=== PATIENT | male | born 2000 | race Caucasian/White ===

== ENCOUNTER 2019-02-03 13:12 | Emergency (ER) | payer BC ==
[2019-02-03 14:01] VITALS: BP 135/88; PULSE 69; RESP 18; TEMP 98
[2019-02-03] MEDS ORDERED: SODIUM CHLORIDE 0.9% 1,000 ML IV ONE (14:03)
--- NOTE | 2019-02-03 14:04 | ED ---
Nausea/Vomiting/Diarrhea HPI - General Chief complaint: Nausea/Vomiting/Diarrhea Stated complaint: vomiting Time Seen by Provider: 02/03/19 14:02 Source: patient, RN notes reviewed Mode of arrival: ambulatory Limitations: no limitations - History of Present Illness Initial comments: 18-year-old male with past medical history of recently diagnosed with less presented for chief complaint of vomiting and diarrhea. Patient states since Thursday he has had watery diarrhea and vomiting. He states it occurs randomly does not noticed a specific pattern. Patient was prescribed doxycycline 2 weeks ago. 100 mg twice daily. He states this was prescribed that she may have syphilis. Patient states this was an incidental finding on laboratories testing he denies any penile lesion, patient denies any headache neck stiffness hearing loss sensation deficits asymmetry of the facial expressions, visual changes. Patient states he does have a seizure disorder and is compliant with this medication he hasn't had a seizure in over one year. Patient denies any recent travel he denies HIV, blood in stools, blood in vomit, fever. Patient states he does have some occasional abdominal cramping. Patient mother was concerned for c. difficile and that is why he presented to the ER. Pt states he has been able to tolerate PO intake but very decreased from usual. Remaining ROS (-). - Related Data Home Medications Medication Instructions Recorded Confirmed OXcarbazepine [Oxtellar Xr] 1,200 mg PO DAILY 09/06/14 02/03/19 Doxycycline Hyclate [Vibramycin] 100 mg PO BID 02/03/19 02/03/19 Sertraline [Zoloft] 50 mg PO DAILY 02/03/19 02/03/19 Allergies Allergy/AdvReac Type Severity Reaction Status Date / Time diphenhydramine HCl Allergy Unknown Verified 02/03/19 14:37 [From Benadryl] sumatriptan [From Imitrex] AdvReac seizure Verified 02/03/19 14:37 sumatriptan succinate AdvReac seizure Verified 02/03/19 14:37 [From Imitrex] Review of Systems ROS Statement: Those systems with pertinent positive or pertinent negative responses have been documented in the HPI. ROS Other: All systems not noted in ROS Statement are negative. Past Medical History Past Medical History: Seizure Disorder History of Any Multi-Drug Resistant Organisms: None Reported Past Surgical History: Adenoidectomy, Tonsillectomy Additional Past Surgical History / Comment(s): undecended testicle Past Psychological History: No Psychological Hx Reported Smoking Status: Never smoker Past Alcohol Use History: None Reported Past Drug Use History: None Reported General Exam - General Exam Comments Initial Comments: General: The patient is awake and alert, in no distress, and does not appear acutely ill. Eye: Pupils are equal, round and reactive to light, extra-ocular movements are intact. No nystagmus. There is normal conjunctiva bilaterally. No signs of icterus. Ears, nose, mouth and throat: There are moist mucous membranes and no oral lesions. Neck: The neck is supple, there is no tenderness or JVD. Cardiovascular: There is a regular rate and rhythm. No murmur, rub or gallop is appreciated. Respiratory: Lungs are clear to auscultation, respirations are non-labored, breath sounds are equal. No wheezes, stridor, rales, or rhonchi. Gastrointestinal: Soft, non-distended, non-tender abdomen without masses or organomegaly noted. There is no rebound or guarding present. No CVA tenderness. Bowel sounds are unremarkable. Musculoskeletal: Normal ROM, no tenderness. Strength 5/5. Sensation intact. Pulses equal bilaterally 2+. Neurological: A&O x 3. CN II-XII intact, There are no obvious motor or sensory deficits. Coordination appears grossly intact. Speech is normal. Skin: Skin is warm and dry and no rashes or lesions are noted. Psychiatric: Cooperative, appropriate mood & affect, normal judgment. Limitations: no limitations Course Vital Signs 02/03/19 13:59 Temperature 98 F Pulse Rate 69 Respiratory 18 Rate Blood Pressure 135/88 O2 Sat by Pulse 98 Oximetry Medical Decision Making - Medical Decision Making 18-year-old male presenting today for chief complaint abdominal cramping vomiting diarrhea. Recently started doxycycline unsure if this is connected. Patient has benign abdominal exam no pain to palpation. Acute abdominal series reveals no acute abnormalities no pneumoperitoneum, or obstruction. No significant stool noted. She unable to give stool sample to check for C. difficile, recent antibiotic regimen, patient is provided tools to collect a stool sample outpatient. There is no significant leukocytosis pt is afebrile, I have low suspicion of C. difficile however still on ddx. Patient is to get the prescription for C. difficile and stool cultures from primary care provider. I recommend follow-up with the next 24 hours to obtain this prescription and provide the sample. Urinalysis does not reveal ketones. No snuff get laboratory states that her indicative of dehydration. Patient appears well capillary refill brisk. Patient has no signs of meningeal irritation denies headache. No complicating process evident on examination her history taken of the recent diagnosis of syphilis. I did provide patient information packet onset plus which includes complicated processes. At this time after discussing results with patient and feel patient is stable for discharge he states he feels better after fluids. No vomiting or diarrhea in the emergency department. I discussed the case including patient's recent diagnosis and my attending provider who is agreeable with outpatient follow-up and stool sample and discharged from the emergency department today. Patient was discharged. Well pleased with plan. - Lab Data Result diagrams: 02/03/19 14:26 02/03/19 14:26 Lab Results 02/03/19 02/03/19 02/03/19 Range/Units 14:26 14:26 16:00 WBC 6.8 (4.0-11.0) k/uL RBC 5.74 (4.30-5.90) m/uL Hgb 15.2 (13.0-17.5) gm/dL Hct 47.1 (39.0-53.0) % MCV 82.1 (80.0-100.0) fL MCH 26.6 (25.0-35.0) pg MCHC 32.4 (31.0-37.0) g/dL RDW 14.5 (11.5-15.5) % Plt Count 203 (150-450) k/uL Neutrophils % 69 % Lymphocytes % 20 % Monocytes % 7 % Eosinophils % 2 % Basophils % 0 % Neutrophils # 4.7 (1.3-7.7) k/uL Lymphocytes # 1.4 (1.0-4.8) k/uL Monocytes # 0.5 (0-1.0) k/uL Eosinophils # 0.1 (0-0.7) k/uL Basophils # 0.0 (0-0.2) k/uL Sodium 140 (137-145) mmol/L Potassium 4.4 (3.5-5.1) mmol/L Chloride 103 (98-107) mmol/L Carbon Dioxide 29 (22-30) mmol/L Anion Gap 8 mmol/L BUN 16 (9-20) mg/dL Creatinine 0.66 (0.66-1.25) mg/dL Est GFR (CKD-EPI)AfAm >90 (>60 ml/min/1.73 sqM) Est GFR (CKD-EPI)NonAf >90 (>60 ml/min/1.73 sqM) Glucose 86 (74-99) mg/dL Calcium 9.9 (8.4-10.2) mg/dL Total Bilirubin 0.7 (0.2-1.3) mg/dL AST 28 (17-59) U/L ALT 23 (21-72) U/L Alkaline Phosphatase 33 L (38-126) U/L Total Protein 7.2 (6.3-8.2) g/dL Albumin 4.7 (3.5-5.0) g/dL Lipase 192 (23-300) U/L Urine Color Yellow Urine Appearance Clear (Clear) Urine pH 6.5 (5.0-8.0) Ur Specific [place] 1.033 (1.001-1.035) Urine Protein Trace H (Negative) Urine Glucose (UA) Negative (Negative) Urine Ketones Negative (Negative) Urine Blood Negative (Negative) Urine Nitrite Negative (Negative) Urine Bilirubin Negative (Negative) Urine Urobilinogen <2.0 (<2.0) mg/dL Ur Leukocyte Esterase Negative (Negative) Disposition Clinical Impression: Diarrhea, Vomiting, Abdominal cramping Disposition: HOME SELF-CARE Condition: Good Instructions (If sedation given, give patient instructions): Syphilis (ED), Acute Nausea and Vomiting (ED), Acute Diarrhea (ED) Additional Instructions: Please use medication as discussed. Please follow-up with family doctor in the next 24 hours, please get a prescription for c.difficle/stool testing and provide stool sample to your primary care for testing. Please return to emergency room if the symptoms increase or worsen or for any other concerns, including blood in stools, fever, increasing/consistent abdominal pain. Is patient prescribed a controlled substance at d/c from ED?: No Referrals: Davian Nam MD [Primary Care Provider] - 1-2 days Time of Disposition: 16:16
[2019-02-03] MEDS ORDERED: SODIUM CHLORIDE 0.9% 500 ML 500 ML IV ONE (14:20)
--- NOTE | 2019-02-03 15:09 | XR ---
EXAMINATION TYPE: XR abdomen acute w cxr DATE OF EXAM: 02/03/2019 COMPARISON: Prior chest x-ray 11/03/2012 HISTORY: Vomiting, diarrhea, abdominal pain TECHNIQUE: Supine, upright, and frontal chest views of the abdomen and chest are obtained on 4 image s. FINDINGS: There are metallic posts over the lower chest, correlate. Underlying pectus deformity is n oted. Chest x-ray shows no acute abnormality. There is no evidence for pneumoperitoneum. The bowel gas pattern is unremarkable as there is air throughout nondilated small and large bowel. No sizeable air fluid levels. No mass effects are seen. No unusual calcifications. Spina bifida occulta noted at S1. IMPRESSION: Findings over the chest is described.
[2019-02-03 15:13] LABS: Basophils % (A) 0 %; Eosinophils # (A) 0.1 k/uL (0-0.7); Eosinophils % (A) 2 %; HCT 47.1 % (39.0-53.0); HGB 15.2 gm/dL (13.0-17.5); Lymphocytes # (A) 1.4 k/uL (1.0-4.8); Lymphocytes % (A) 20 %; MCH 26.6 pg (25.0-35.0); MCHC 32.4 g/dL (31.0-37.0); MCV 82.1 fL (80.0-100.0); Mean Platelet Volume 9.3; Monocytes # (A) 0.5 k/uL (0-1.0); Monocytes % (A) 7 %; Neutrophils # (A) 4.7 k/uL (1.3-7.7); Neutrophils % (A) 69 %; Platelet Count 203 k/uL (150-450); RBC 5.74 m/uL (4.30-5.90); RDW 14.5 % (11.5-15.5); WBC 6.8 k/uL (4.0-11.0)
[2019-02-03 15:22] LABS: ALT 23 U/L (21-72); AST 28 U/L (17-59); Albumin 4.7 g/dL (3.5-5.0); Alkaline Phosphatase 33 U/L (38-126); Anion Gap 8 mmol/L; Blood Urea Nitrogen 16 mg/dL (9-20); Calcium 9.9 mg/dL (8.4-10.2); Carbon Dioxide 29 mmol/L (22-30); Chloride 103 mmol/L (98-107); Glucose 86 mg/dL (74-99); Lipase 192 U/L (23-300); Potassium 4.4 mmol/L (3.5-5.1); Sodium 140 mmol/L (137-145); Total Bilirubin 0.7 mg/dL (0.2-1.3); Total Protein 7.2 g/dL (6.3-8.2)
[2019-02-03 16:17] LABS: Appearance,Urine Clear (Clear); Bilirubin,Urine Negative (Negative); Blood,Urine Negative (Negative); Color,Urine Yellow; Glucose,Urine (UA) Negative (Negative); Ketones,Urine Negative (Negative); Leukocyte Esterase,Urine Negative (Negative); Nitrite,Urine Negative (Negative); PH, Urine 6.5 (5.0-8.0); Protein,Urine Trace (Negative); Specific Gravity,Urine 1.033 (1.001-1.035); Urobilinogen,Urine <2.0 mg/dL (<2.0)
== END 2019-02-03 16:38 | disposition home or self-care (01) ==
LOC: EC 13:12
DX: R11.10 Vomiting, unspecified (principal); R19.7 Diarrhea, unspecified; R10.9 Unspecified abdominal pain; G40.909 Epilepsy, unspecified, not intractable, without status epilepticus; Z79.899 Other long term (current) drug therapy; Z88.8 Allergy status to other drugs, medicaments and biological substances
CPT/HCPCS: 36415; 74022; 80053; 81003; 83690; 85025; 96360; 99284

== ENCOUNTER 2019-02-14 18:04 | Emergency (ER) | payer BC ==
[2019-02-14 18:25] VITALS: RESP 18
[2019-02-14 19:31] LABS: Basophils % (A) 0 %; Eosinophils # (A) 0.1 k/uL (0-0.7); Eosinophils % (A) 1 %; HCT 50.6 % (39.0-53.0); HGB 16.5 gm/dL (13.0-17.5); Lymphocytes # (A) 1.4 k/uL (1.0-4.8); Lymphocytes % (A) 14 %; MCH 27.6 pg (25.0-35.0); MCHC 32.6 g/dL (31.0-37.0); MCV 84.7 fL (80.0-100.0); Mean Platelet Volume 9.3; Monocytes # (A) 0.3 k/uL (0-1.0); Monocytes % (A) 3 %; Neutrophils % (A) 80 %; Platelet Count 239 k/uL (150-450); RBC 5.97 m/uL (4.30-5.90); RDW 13.2 % (11.5-15.5); WBC 9.9 k/uL (4.0-11.0)
[2019-02-14 19:37] LABS: Appearance,Urine Cloudy (Clear); Bilirubin,Urine Negative (Negative); Blood,Urine Negative (Negative); Color,Urine Yellow; Glucose,Urine (UA) Negative (Negative); Ketones,Urine Negative (Negative); Leukocyte Esterase,Urine Negative (Negative); Mucus,Urine Many /hpf; Nitrite,Urine Negative (Negative); PH, Urine 5.5 (5.0-8.0); Protein,Urine 1+ (Negative); Urobilinogen,Urine <2.0 mg/dL (<2.0); WBC,Urine 2 /hpf (0-5)
[2019-02-14 19:40] LABS: ALT 19 U/L (21-72); AST 24 U/L (17-59); African American GFR (CKD) >90 (>60 ml/min/1.73 sqM); Albumin 5.3 g/dL (3.5-5.0); Alkaline Phosphatase 39 U/L (38-126); Amylase 66 U/L (30-110); Anion Gap 11 mmol/L; Blood Urea Nitrogen 12 mg/dL (9-20); Calcium 10.4 mg/dL (8.4-10.2); Carbon Dioxide 26 mmol/L (22-30); Chloride 105 mmol/L (98-107); Glucose 91 mg/dL (74-99); Lipase 152 U/L (23-300); Potassium 4.3 mmol/L (3.5-5.1); Sodium 142 mmol/L (137-145); Total Bilirubin 0.7 mg/dL (0.2-1.3); Total Protein 8.3 g/dL (6.3-8.2)
[2019-02-14] MEDS ORDERED: ONDANSETRON 4 MG/2 ML VIAL IVP STA (20:05)
[2019-02-14] MEDS ORDERED: SODIUM CHLORIDE 0.9% 1,000 ML IV ONE (20:05)
--- NOTE | 2019-02-14 20:11 | ED ---
Abdominal Pain HPI - General Source: patient Mode of arrival: ambulatory Limitations: no limitations <Michelle Gonzalez - Last Filed: 02/15/19 03:44> <Siena Covarrubias - Last Filed: 02/15/19 06:23> - General Chief Complaint: Abdominal Pain Stated Complaint: vomiting Time Seen by Provider: 02/14/19 19:50 - History of Present Illness Initial Comments: 18-year-old male patient presents to the emergency department today for evaluation of vomiting and midepigastric abdominal pain. Patient started with symptoms this morning abdomen worsening throat the day. He did develop diarrhea this evening. Denies any hematochezia, melena, hematemesis. Denies any fever or chills. Patient did have a similar episode of this 2 weeks ago that started in resolved quickly. Patient and family are concerned his gallbladder may be dysfunctional. He denies any radiation of the pain through to his back or to his shoulder. He denies any history of abdominal surgery. Patient denies any recent rash, shortness breath, chest pain, back pain, numbness, tingling, dizziness, weakness, hematuria, dysuria, urinary urgency, urinary frequency, headache, visual changes, or any other complaints. (Michelle Gonzalez) - Related Data Home Medications Medication Instructions Recorded Confirmed OXcarbazepine [Oxtellar Xr] 1,200 mg PO DAILY 09/06/14 02/14/19 Sertraline [Zoloft] 50 mg PO DAILY 02/03/19 02/14/19 Omeprazole [PriLOSEC] 20 mg PO DAILY 02/14/19 02/14/19 Previous Rx's Medication Instructions Recorded Ondansetron [Zofran ODT] 4 mg PO Q8HR PRN #10 tab 02/14/19 Ranitidine HCl [Zantac] 150 mg PO HS #30 tab 02/14/19 Allergies Allergy/AdvReac Type Severity Reaction Status Date / Time diphenhydramine HCl Allergy Unknown Verified 02/14/19 20:08 [From Benadryl] sumatriptan [From Imitrex] AdvReac seizure Verified 02/14/19 20:08 sumatriptan succinate AdvReac seizure Verified 02/14/19 20:08 [From Imitrex] Review of Systems ROS Other: All systems not noted in ROS Statement are negative. <Michelle Gonzalez M - Last Filed: 02/15/19 03:44> ROS Other: All systems not noted in ROS Statement are negative. <Nancy Covarrubiastemitope Olivarez - Last Filed: 02/15/19 06:23> ROS Statement: Those systems with pertinent positive or pertinent negative responses have been documented in the HPI. Past Medical History Past Medical History: Seizure Disorder History of Any Multi-Drug Resistant Organisms: None Reported Past Surgical History: Adenoidectomy, Tonsillectomy Additional Past Surgical History / Comment(s): undecended testicle Past Psychological History: No Psychological Hx Reported Smoking Status: Current every day smoker Past Alcohol Use History: None Reported Past Drug Use History: None Reported <Michelle Gonzalez Cristofer - Last Filed: 02/15/19 03:44> General Exam Limitations: no limitations General appearance: alert, in no apparent distress, other (This is well- developed, well-nourished adult male patient in no acute distress. Vital signs upon presentation are temperature 98.8F, pulse 78, respirations 18, blood pressure 130/81, pulse ox 96% on room air.) Eye exam: Present: normal appearance, PERRL, EOMI. Absent: scleral icterus, conjunctival injection, periorbital swelling ENT exam: Present: normal exam, normal oropharynx, mucous membranes moist Respiratory exam: Present: normal lung sounds bilaterally. Absent: respiratory distress, wheezes, rales, rhonchi, stridor Cardiovascular Exam: Present: regular rate, normal rhythm, normal heart sounds. Absent: systolic murmur, diastolic murmur, rubs, gallop, clicks GI/Abdominal exam: Present: soft, tenderness (Right upper quadrant tenderness, midepigastric tenderness), normal bowel sounds. Absent: distended, guarding, rebound, rigid Neurological exam: Present: alert, oriented X3, CN II-XII intact Psychiatric exam: Present: normal affect, normal mood Skin exam: Present: warm, dry, intact, normal color. Absent: rash <Michelle Gonzalez M - Last Filed: 02/15/19 03:44> Course Vital Signs 02/14/19 02/14/19 18:23 22:34 Temperature 98.8 F 98.7 F Pulse Rate 78 77 Respiratory 18 18 Rate Blood Pressure 130/81 121/59 O2 Sat by Pulse 96 99 Oximetry Medical Decision Making - Lab Data Result diagrams: 02/14/19 19:15 02/14/19 19:15 - Radiology Data Radiology results: report reviewed, image reviewed <Michelle Gonzalez - Last Filed: 02/15/19 03:44> - Lab Data Result diagrams: 02/14/19 19:15 02/14/19 19:15 <Siena Covarrubias - Last Filed: 02/15/19 06:23> - Medical Decision Making 18-year-old male patient presents to the emergency department today for eval uation of upper abdominal pain, vomiting, diarrhea. Physical examination did reveal midepigastric and right upper quadrant tenderness. Labs reviewed and were unremarkable. Ultrasound of the right upper quadrant abdomen was obtained and was negative for any abnormality is. Upon reevaluation patient is feeling better. He is eating chips and drinking soda. He'll be discharged home at this time to follow-up with his primary care physician for recheck in 1-2 days. He will be given a prescription for Zofran for any return of symptoms. Return parameters were discussed in detail. He verbalizes understanding and agrees with this plan (Michelle Gonzalez) I was available for consultation in the emergency department. The history and physical exam were done by the Midlevel Provider. Medical decision making was done by the Midlevel Provider. I have reviewed the chart, however was not consulted specifically or made aware of this patient by the above midlevel provider and did not personally evaluate, interact with, or disposition this patient on the day of their visit Chart was dictated using [employer] dictation software. Attempts were made to correct any dictation errors however some typographical errors may persist. (Siena Covarrubias) - Lab Data Lab Results 02/14/19 02/14/19 02/14/19 Range/Units 19:15 19:15 19:15 WBC 9.9 (4.0-11.0) k/uL RBC 5.97 H (4.30-5.90) m/uL Hgb 16.5 (13.0-17.5) gm/dL Hct 50.6 (39.0-53.0) % MCV 84.7 (80.0-100.0) fL MCH 27.6 (25.0-35.0) pg MCHC 32.6 (31.0-37.0) g/dL RDW 13.2 (11.5-15.5) % Plt Count 239 (150-450) k/uL Neutrophils % 80 % Lymphocytes % 14 % Monocytes % 3 % Eosinophils % 1 % Basophils % 0 % Neutrophils # 8.0 H (1.3-7.7) k/uL Lymphocytes # 1.4 (1.0-4.8) k/uL Monocytes # 0.3 (0-1.0) k/uL Eosinophils # 0.1 (0-0.7) k/uL Basophils # 0.0 (0-0.2) k/uL Sodium 142 (137-145) mmol/L Potassium 4.3 (3.5-5.1) mmol/L Chloride 105 (98-107) mmol/L Carbon Dioxide 26 (22-30) mmol/L Anion Gap 11 mmol/L BUN 12 (9-20) mg/dL Creatinine 0.79 (0.66-1.25) mg/dL Est GFR (CKD-EPI)AfAm >90 (>60 ml/min/1.73 sqM) Est GFR (CKD-EPI)NonAf >90 (>60 ml/min/1.73 sqM) Glucose 91 (74-99) mg/dL Calcium 10.4 H (8.4-10.2) mg/dL Total Bilirubin 0.7 (0.2-1.3) mg/dL AST 24 (17-59) U/L ALT 19 L (21-72) U/L Alkaline Phosphatase 39 (38-126) U/L Total Protein 8.3 H (6.3-8.2) g/dL Albumin 5.3 H (3.5-5.0) g/dL Amylase 66 (30-110) U/L Lipase 152 (23-300) U/L Urine Color Yellow Urine Appearance Cloudy (Clear) Urine pH 5.5 (5.0-8.0) Ur Specific [place] 1.030 (1.001-1.035) Urine Protein 1+ H (Negative) Urine Glucose (UA) Negative (Negative) Urine Ketones Negative (Negative) Urine Blood Negative (Negative) Urine Nitrite Negative (Negative) Urine Bilirubin Negative (Negative) Urine Urobilinogen <2.0 (<2.0) mg/dL Ur Leukocyte Esterase Negative (Negative) Urine WBC 2 (0-5) /hpf Urine Mucus Many H (None) /hpf - Radiology Data Limited ultrasound of the right upper quadrant abdomen was obtained. Report was reviewed in its entirety. Impression by Dr. Hong Munoz shows no acute process. (Michelle Gonzalez) Disposition Is patient prescribed a controlled substance at d/c from ED?: No Time of Disposition: 22:17 <Michelle Gonzalez - Last Filed: 02/15/19 03:44> <Siena Covarrubias - Last Filed: 02/15/19 06:23> Clinical Impression: Abdominal pain Disposition: HOME SELF-CARE Condition: Good Instructions (If sedation given, give patient instructions): Acute Nausea and Vomiting (ED), Abdominal Pain (ED) Additional Instructions: Follow-up with your primary care physician for recheck in 1-2 days. Return to the emergency department immediately for any new, worsening, or concerning symptoms. Prescriptions: Ranitidine HCl [Zantac] 150 mg PO HS #30 tab Ondansetron [Zofran ODT] 4 mg PO Q8HR PRN #10 tab PRN Reason: Nausea Referrals: Davian Nam MD [Primary Care Provider] - 1-2 days
--- NOTE | 2019-02-14 22:02 | US ---
EXAMINATION TYPE: US abdomen limited DATE OF EXAM: 02/14/2019 COMPARISON: NONE CLINICAL HISTORY: Mid epigastric pain/vomiting. EXAM MEASUREMENTS: Liver Length: 16.0 cm Gallbladder Wall: 0.2 cm CBD: 0.3 cm Right Kidney: 12.2 x 5.0 x 5.0 cm Pancreas: wnl Liver: wnl Gallbladder: wnl Evidence for sonographic Sweeney's sign: No CBD: wnl Right Kidney: wnl IMPRESSION: No acute process.
[2019-02-14 22:36] VITALS: BP 121/59; PULSE 77; TEMP 98.7
== END 2019-02-14 22:36 | disposition home or self-care (01) ==
LOC: EC 18:04
DX: R10.13 Epigastric pain (principal); R11.10 Vomiting, unspecified; R10.11 Right upper quadrant pain; R19.7 Diarrhea, unspecified; G40.909 Epilepsy, unspecified, not intractable, without status epilepticus; F17.200 Nicotine dependence, unspecified, uncomplicated; Z79.899 Other long term (current) drug therapy; Z88.8 Allergy status to other drugs, medicaments and biological substances
CPT/HCPCS: 36415; 80053; 82150; 83690; 85025; 81001; 76705; 99284; 96374; 96361 ×2; J2405

== ENCOUNTER 2019-04-19 12:52 | Observation (INO) | payer BC ==
[2019-04-19] MEDS ORDERED: SODIUM CHLORIDE 0.9% 1,000 ML IV STA (13:25)
[2019-04-19 13:41] LABS: Basophils % (A) 0 %; Eosinophils # (A) 0.1 k/uL (0-0.7); Eosinophils % (A) 2 %; HCT 45.1 % (39.0-53.0); HGB 14.7 gm/dL (13.0-17.5); Lymphocytes # (A) 1.3 k/uL (1.0-4.8); Lymphocytes % (A) 21 %; MCH 27.8 pg (25.0-35.0); MCHC 32.7 g/dL (31.0-37.0); Mean Platelet Volume 8.9; Monocytes # (A) 0.4 k/uL (0-1.0); Monocytes % (A) 5 %; Neutrophils # (A) 4.6 k/uL (1.3-7.7); Neutrophils % (A) 71 %; Platelet Count 189 k/uL (150-450); WBC 6.5 k/uL (3.8-10.6)
[2019-04-19 14:11] LABS: ALT 22 U/L (21-72); AST 19 U/L (17-59); African American GFR (CKD) >90 (>60 ml/min/1.73 sqM); Albumin 4.1 g/dL (3.5-5.0); Alkaline Phosphatase 33 U/L (38-126); Amylase 60 U/L (30-110); Anion Gap 9 mmol/L; Blood Urea Nitrogen 14 mg/dL (9-20); Calcium 9.4 mg/dL (8.4-10.2); Carbon Dioxide 26 mmol/L (22-30); Chloride 105 mmol/L (98-107); Glucose 96 mg/dL (74-99); Non-African American GFR(CKD) >90 (>60 ml/min/1.73 sqM); Potassium 3.9 mmol/L (3.5-5.1); Sodium 140 mmol/L (137-145); Total Bilirubin 0.7 mg/dL (0.2-1.3); Total Protein 6.6 g/dL (6.3-8.2)
--- NOTE | 2019-04-19 14:54 | CT ---
EXAMINATION TYPE: CT abdomen pelvis w con DATE OF EXAM: 04/19/2019 COMPARISON: Abdominal ultrasound dated 02/14/2019 HISTORY: Abdominal pain CT DLP: 596.1 mGycm Automated exposure control for dose reduction was used. TECHNIQUE: Helical acquisition of images was performed from the lung bases through the pelvis. CONTRAST: Performed without Oral Contrast and with IV Contrast, patient injected with 100 ml mL of Isovue 300. FINDINGS: LUNG BASES: Insole note of pectus excavatum. Otherwise the bases are clear. LIVER/GB: No significant abnormality is appreciated. PANCREAS: No significant abnormality is seen. SPLEEN: No significant abnormality is seen. ADRENALS: No significant abnormality is seen. KIDNEYS: No significant abnormality is seen. RETROPERITONEAL ADENOPATHY: None visualized REPRODUCTIVE ORGANS: No significant abnormality is seen URINARY BLADDER: No significant abnormality is seen. PELVIC ADENOPATHY: None visualized. OSSEOUS STRUCTURES: No significant abnormality is seen. BOWEL: Diffuse rectal wall thickening from the mid transverse colon to the rectum with a small amoun t of fluid seen within the pelvis and inflammatory fat stranding seen involving the transverse, desce nding and sigmoid colon. No free intraperitoneal air. No loculated fluid collection. No bowel obstruc tion. IMPRESSION: TRANSVERSE, DESCENDING, SIGMOID AND RECTAL COLITIS. DIFFERENTIAL FOR THESE FINDINGS INCLUDE INFECTIOU S OR INFLAMMATORY CAUSES (ULCERATIVE COLITIS) AND LESS LIKELY VASCULAR ETIOLOGY.
[2019-04-19] MEDS ORDERED: ONDANSETRON 4 MG/2 ML VIAL IVP PRN (15:20)
[2019-04-19] MEDS ORDERED: KETOROLAC 30 MG/ML 1 ML VIAL IVP PRN (15:20)
--- NOTE | 2019-04-19 15:20 | ED ---
Abdominal Pain HPI - General Chief Complaint: Abdominal Pain Stated Complaint: abdominal pain Time Seen by Provider: 04/19/19 13:15 Source: patient, RN notes reviewed Mode of arrival: ambulatory Limitations: no limitations - History of Present Illness Initial Comments: 19-year-old male presents emergency Department chief complaint of ongoing nausea, extreme right-sided abdominal pain. Patient had persistent vomiting which has been worsening over last 2 weeks has had several ER visits at [facility] and is had lab work and given Zofran and omeprazole with no changes. Patient has had no imaging. Patient was scheduled see Dr. Adhikari but due to is passing was not able to see him and he is scheduled to weeks out for an EGD. Patient has no GERD type symptoms denies any melena or hematochezia. Denies any hematemesis copremesis no dysuria. Patient states his pain is absent on the right side is new symptoms for him and is very severe. - Related Data Home Medications Medication Instructions Recorded Confirmed OXcarbazepine [Oxtellar Xr] 1,200 mg PO DAILY 09/06/14 04/19/19 Sertraline [Zoloft] 50 mg PO DAILY 02/03/19 04/19/19 Omeprazole [PriLOSEC] 40 mg PO DAILY 04/19/19 04/19/19 Previous Rx's Medication Instructions Recorded Ondansetron [Zofran ODT] 4 mg PO Q8HR PRN #10 tab 02/14/19 Allergies Allergy/AdvReac Type Severity Reaction Status Date / Time diphenhydramine HCl Allergy Unknown-SEE Verified 04/19/19 13:14 [From Benadryl] COMMENTS sumatriptan [From Imitrex] AdvReac seizure Verified 04/19/19 13:14 sumatriptan succinate AdvReac seizure Verified 04/19/19 13:14 [From Imitrex] Review of Systems ROS Statement: Those systems with pertinent positive or pertinent negative responses have been documented in the HPI. ROS Other: All systems not noted in ROS Statement are negative. Past Medical History Past Medical History: Seizure Disorder History of Any Multi-Drug Resistant Organisms: None Reported Past Surgical History: Adenoidectomy, Tonsillectomy Additional Past Surgical History / Comment(s): undecended testicle Past Psychological History: No Psychological Hx Reported Smoking Status: Current every day smoker Past Alcohol Use History: None Reported Past Drug Use History: None Reported General Exam Limitations: no limitations General appearance: alert, in no apparent distress Head exam: Present: atraumatic, normocephalic, normal inspection Respiratory exam: Present: normal lung sounds bilaterally. Absent: respiratory distress, wheezes, rales, rhonchi, stridor Cardiovascular Exam: Present: regular rate, normal rhythm, normal heart sounds. Absent: systolic murmur, diastolic murmur, rubs, gallop, clicks GI/Abdominal exam: Present: soft, tenderness (Moderate right-sided tenderness), normal bowel sounds. Absent: distended, guarding, rebound, rigid Back exam: Absent: CVA tenderness (R), CVA tenderness (L) Course Vital Signs 04/19/19 04/19/19 12:56 15:16 Temperature 97.7 F Pulse Rate 57 L 62 Respiratory 16 18 Rate Blood Pressure 135/82 128/82 O2 Sat by Pulse 97 92 L Oximetry Medical Decision Making - Medical Decision Making 19-year-old male presented for abdominal pain and nausea vomiting. Patient had progressive worsening symptoms over the last few weeks. CT shows evidence of colitis concerning for ulcerative colitis. Patient will be admitted for GI consult possible colonoscopy. - Lab Data Result diagrams: 04/19/19 13:20 04/19/19 13:20 Lab Results 04/19/19 04/19/19 Range/Units 13:20 13:20 WBC 6.5 (3.8-10.6) k/uL RBC 5.30 (4.30-5.90) m/uL Hgb 14.7 (13.0-17.5) gm/dL Hct 45.1 (39.0-53.0) % MCV 85.0 (80.0-100.0) fL MCH 27.8 (25.0-35.0) pg MCHC 32.7 (31.0-37.0) g/dL RDW 15.0 (11.5-15.5) % Plt Count 189 (150-450) k/uL Neutrophils % 71 % Lymphocytes % 21 % Monocytes % 5 % Eosinophils % 2 % Basophils % 0 % Neutrophils # 4.6 (1.3-7.7) k/uL Lymphocytes # 1.3 (1.0-4.8) k/uL Monocytes # 0.4 (0-1.0) k/uL Eosinophils # 0.1 (0-0.7) k/uL Basophils # 0.0 (0-0.2) k/uL Sodium 140 (137-145) mmol/L Potassium 3.9 (3.5-5.1) mmol/L Chloride 105 (98-107) mmol/L Carbon Dioxide 26 (22-30) mmol/L Anion Gap 9 mmol/L BUN 14 (9-20) mg/dL Creatinine 0.74 (0.66-1.25) mg/dL Est GFR (CKD-EPI)AfAm >90 (>60 ml/min/1.73 sqM) Est GFR (CKD-EPI)NonAf >90 (>60 ml/min/1.73 sqM) Glucose 96 (74-99) mg/dL Calcium 9.4 (8.4-10.2) mg/dL Total Bilirubin 0.7 (0.2-1.3) mg/dL AST 19 (17-59) U/L ALT 22 (21-72) U/L Alkaline Phosphatase 33 L (38-126) U/L Total Protein 6.6 (6.3-8.2) g/dL Albumin 4.1 (3.5-5.0) g/dL Amylase 60 (30-110) U/L Lipase 159 (23-300) U/L Disposition Clinical Impression: Colitis, Abdominal pain, Nausea & vomiting Disposition: ADMITTED IP TO [facility] Condition: Fair Referrals: Davian Nam MD [Primary Care Provider] - 1-2 days
[2019-04-19 17:14] LABS: Appearance,Urine Clear (Clear); Bilirubin,Urine Negative (Negative); Blood,Urine Negative (Negative); Color,Urine Yellow; Glucose,Urine (UA) Negative (Negative); Ketones,Urine Negative (Negative); Leukocyte Esterase,Urine Negative (Negative); Nitrite,Urine Negative (Negative); Protein,Urine Negative (Negative); Urobilinogen,Urine <2.0 mg/dL (<2.0)
[2019-04-19 17:36] LABS: Specific Gravity,Urine >1.050 (1.001-1.035)
[2019-04-19 18:33] VITALS: BMI 19.8
[2019-04-19] MEDS: SODIUM CHLORIDE 0.9% 1,000 ML IV SCH (21:27)
[2019-04-19] MEDS: MELATONIN 5 MG TABLET PO SCH (23:50)
[2019-04-20] MEDS: SODIUM CHLORIDE 0.9% 1,000 ML IV SCH ×2 (06:21→20:29)
--- NOTE | 2019-04-20 08:47 | P.HPIM ---
History of Present Illness H&P Date: 04/20/19 Chief Complaint: Recurrent and chronic abdominal pain. This is a history of physical and 19-year-old white male essentially admitted for worsening chronic abdominal pain. He's been worked up in the past but not had any type of endoscopy. Dietary modifications were given to the patient and he has had significant resolution of his pain. However flare of pain over the last several days. Appetite has been nominal but he is not wanting to eat much because of the pain and diarrhea. Evaluation in the emergency room did show inflammatory element of his computed tomography scan. He is now admitted for probable endoscopy and pain control. Review of Systems Constitutional: Denies chills, Denies fever Eyes: denies blurred vision, denies pain Cardiovascular: Denies chest pain, Denies shortness of breath Respiratory: Denies cough Gastrointestinal: Reports as per HPI, Reports abdominal pain, Reports bloating, Reports dyspepsia Musculoskeletal: Denies myalgias Past Medical History Past Medical History: Seizure Disorder Additional Past Medical History / Comment(s): History of treated syphilitic infection-2019 History of Any Multi-Drug Resistant Organisms: None Reported Past Surgical History: Adenoidectomy, Tonsillectomy Additional Past Surgical History / Comment(s): undecended testicle Past Anesthesia/Blood Transfusion Reactions: No Reported Reaction Past Psychological History: No Psychological Hx Reported Smoking Status: Never smoker Past Alcohol Use History: Rare Additional Past Alcohol Use History / Comment(s): 1 to 4 drinks a month. smokes 1 -3 cigerettes a week Past Drug Use History: None Reported - Past Family History Mother Family Medical History: Hypertension Additional Family Medical History / Comment(s): on mothers side their is an extensive history of colitis, ulcerative colitis, IBS Chrohns Father Family Medical History: Diabetes Mellitus Medications and Allergies Home Medications Medication Instructions Recorded Confirmed Type OXcarbazepine [Oxtellar Xr] 1,200 mg PO DAILY 09/06/14 04/19/19 History Sertraline [Zoloft] 50 mg PO DAILY 02/03/19 04/19/19 History Ondansetron [Zofran ODT] 4 mg PO Q8HR PRN #10 tab 02/14/19 04/19/19 Rx Omeprazole [PriLOSEC] 40 mg PO DAILY 04/19/19 04/19/19 History Allergies Allergy/AdvReac Type Severity Reaction Status Date / Time diphenhydramine HCl Allergy Unknown-SEE Verified 04/19/19 13:14 [From Benadryl] COMMENTS sumatriptan [From Imitrex] AdvReac seizure Verified 04/19/19 13:14 sumatriptan succinate AdvReac seizure Verified 04/19/19 13:14 [From Imitrex] Physical Exam Vitals: Vital Signs Temp Pulse Pulse Resp BP BP Pulse Ox 04/20/19 05:00 97.7 F 98 16 116/65 98 04/20/19 00:20 62 16 04/19/19 20:46 98.3 F 62 16 129/75 98 04/19/19 17:50 97.7 F 54 L 18 129/70 97 04/19/19 17:11 54 L 18 129/70 97 04/19/19 15:16 62 18 128/82 92 L 04/19/19 12:56 97.7 F 57 L 16 135/82 97 Intake and Output 04/19/19 04/20/19 04/20/19 22:59 06:59 14:59 Intake Total 450 600 Balance 450 600 Intake: Intake, IV Titration 450 600 Amount Sodium Chloride 0.9% 1, 450 600 000 ml @ 75 mls/hr IV . [id number] [facility] Rx#:[id number] Other: Voiding Method Toilet # Voids 1 1 - Constitutional General appearance: no acute distress - EENT Eyes: EOMI - Neck Neck: no lymphadenopathy - Respiratory Respiratory: bilateral: CTA - Cardiovascular Rhythm: regular Heart sounds: normal: S1, S2 Abnormal Heart Sounds: no S3 Gallop - Gastrointestinal General gastrointestinal: soft, no tenderness - Neurologic Neurologic: CNII-XII intact - Musculoskeletal Musculoskeletal: no generalized weakness - Psychiatric Psychiatric: A&O x's 3 Results CBC & Chem 7: 04/19/19 13:20 04/19/19 13:20 Labs: Abnormal Lab Results - Last 24 Hours (Table) 04/19/19 04/19/19 Range/Units 13:20 17:03 Alkaline Phosphatase 33 L (38-126) U/L Ur Specific [place] >1.050 H (1.001-1.035) Thrombosis Risk Factor Assmnt - Choose All That Apply Any of the Below Risk Factors Present?: No Other Risk Factors: No Other congenital or acquired thrombophilia - If yes, enter type in comment: No Thrombosis Risk Factor Assessment Level: Very Low Risk Assessment and Plan (1) Abdominal pain Current Visit: Yes Status: Acute Code(s): R10.9 - UNSPECIFIED ABDOMINAL PAIN SNOMED Code(s): 89374991 (2) Colitis Current Visit: Yes Status: Acute Code(s): K52.9 - NONINFECTIVE GASTROENTERITIS AND COLITIS, UNSPECIFIED SNOMED Code(s): 15168595 (3) Nausea & vomiting Current Visit: Yes Status: Acute Code(s): R11.2 - NAUSEA WITH VOMITING, UNSPECIFIED SNOMED Code(s): 59796741 Plan: EGD and colonoscopy is been ordered for tomorrow. Clear liquids for today. Reconcile occasions as necessary. We'll continue to follow
[2019-04-20] MEDS ORDERED: PANTOPRAZOLE 40 MG/10 ML VIAL IV SCH (09:00)
[2019-04-20] MEDS ORDERED: ONDANSETRON 4 MG/2 ML VIAL IVP PRN (09:17)
--- NOTE | 2019-04-20 09:25 | P.CONS ---
History of Present Illness - Reason for Consult Consult date: 04/20/19 Nausea vomiting abdominal pain Requesting physician: Davian Nam - Chief Complaint Nausea vomiting abdominal pain and weight loss - History of Present Illness 19-year-old male with past medical history of epilepsy admitted with a 6 week history of intractable nonbloody nausea vomiting intermittent abdominal discomfort in the mid to upper abdomen with approximate 15 pound weight loss. Emesis is mostly in the morning but can be associated after eating meals. No changes in appetite despite the weight loss. Over the course of the last 6 weeks patient has had intermittent loose bowel movements no more than 3 a day describes them as brown in color. Denies gross hematemesis hematochezia or melena. No history of these types of symptoms. Denies fever or chills. No r ecent travels no changes in diet or medications. Does not take [id number] herbs NSAIDs. No history of personal inflammatory bowel diseases or bowel disorders. No history of abdominal surgeries. His biological brother was diagnosed with ALLERGIC colitis as an and according to patient's mother the brother outgrew it by the age of 2. Patient's brother was passing gross bloody bowel movements evaluated by pediatric marketing and communications officer Dr. Colmenares and through stool testing diagnosed with ALLERGIC colitis; endoscopic exam was not performed. Denies arthralgias myalgias skin rashes. No changes in vision. He has been evaluated 3 times in the emergency room over the last 6 weeks with no clear answer for his symptoms. He was seen in the GI office a few weeks ago prescribed PPI therapy twice a day and scheduled for outpatient EGD. White count 6.5. Hemoglobin 14.7. MCV 85. Platelet 189. C-reactive less than 5. LFTs within normal limits. Lipase 159. Amylase 60. CT abdomen and pelvis with IV contrast only reported diffuse rectal wall thickening from the mid transverse colon to the rectum with a small amount of fluid seen within the pelvis and inflammatory fat stranding seen involving the transverse descending and sigmoid colon. No bowel obstruction. No free intra peritoneal air. No loculated fluid collection. Review of Systems Constitutional: Denies fever, chills, sweats, reports 15 pound unintentional weight loss.. HEENT: Negative for migraines, blurred vision or loss, earaches, drainage, tinnitus, oral mucosal lesions, dysphagia, or odynophagia. Cardiac: Negative for chest pain, arrhythmias, or palpitation. Respiratory: Negative for shortness of breath, hemoptysis, cough, or sputum production. Gastrointestinal: See HPI for pertinent findings. Genitourinary: Negative for hematuria, urgency, frequency, polyuria, dysuria, or penile discharge. Musculoskeletal: Negative for muscle aches, swelling, arthritis, and arth ralgias. Neurologic: History of epilepsy. Negative for stroke or TIA. Endocrine: Negative for thyroid problems. Skin: Negative for rash or itching. Psychiatric: Negative history for depression and anxiety Past Medical History Past Medical History: Seizure Disorder Additional Past Medical History / Comment(s): History of treated syphilitic infection-2019 History of Any Multi-Drug Resistant Organisms: None Reported Past Surgical History: Adenoidectomy, Tonsillectomy Additional Past Surgical History / Comment(s): undecended testicle Past Anesthesia/Blood Transfusion Reactions: No Reported Reaction Past Psychological History: No Psychological Hx Reported Smoking Status: Never smoker Past Alcohol Use History: Rare Additional Past Alcohol Use History / Comment(s): 1 to 4 drinks a month. smokes 1 -3 cigerettes a week Past Drug Use History: None Reported - Past Family History Mother Family Medical History: Hypertension Additional Family Medical History / Comment(s): on mothers side their is an extensive history of colitis, ulcerative colitis, IBS Chrohns Father Family Medical History: Diabetes Mellitus Medications and Allergies Home Medications Medication Instructions Recorded Confirmed Type OXcarbazepine [Oxtellar Xr] 1,200 mg PO DAILY 09/06/14 04/19/19 History Sertraline [Zoloft] 50 mg PO DAILY 02/03/19 04/19/19 History Ondansetron [Zofran ODT] 4 mg PO Q8HR PRN #10 tab 02/14/19 04/19/19 Rx Omeprazole [PriLOSEC] 40 mg PO DAILY 04/19/19 04/19/19 History Allergies Allergy/AdvReac Type Severity Reaction Status Date / Time diphenhydramine HCl Allergy Unknown-SEE Verified 04/19/19 13:14 [From Benadryl] COMMENTS sumatriptan [From Imitrex] AdvReac seizure Verified 04/19/19 13:14 sumatriptan succinate AdvReac seizure Verified 04/19/19 13:14 [From Imitrex] Physical Exam Vitals: Vital Signs Temp Pulse Pulse Resp BP BP Pulse Ox 04/20/19 05:00 97.7 F 98 16 116/65 98 04/20/19 00:20 62 16 04/19/19 20:46 98.3 F 62 16 129/75 98 04/19/19 17:50 97.7 F 54 L 18 129/70 97 04/19/19 17:11 54 L 18 129/70 97 04/19/19 15:16 62 18 128/82 92 L 04/19/19 12:56 97.7 F 57 L 16 135/82 97 Intake and Output 04/19/19 04/20/19 04/20/19 22:59 06:59 14:59 Intake Total 450 600 Balance 450 600 Intake: Intake, IV Titration 450 600 Amount Sodium Chloride 0.9% 1, 450 600 000 ml @ 75 mls/hr IV . [id number] Rx#:[id number] Other: Voiding Method Toilet Toilet # Voids 1 1 General appearance: The patient is alert, oriented, in no acute distress. HET: Head is normocephalic and atraumatic. Pupils are equal and reactive. Oropharynx is clear without lesions. Neck: Supple without lymphadenopathy. Trachea midline. Heart: S1 S2. Regular rate and rhythm. Lungs: No crackles or wheezes are heard. Abdomen: Soft, very mild tenderness to the mid epigastrium, nondistended with bowel sounds. No peritoneal signs. No palpable organomegaly or masses. Extremities: Normal skin color and turgor. No cyanosis, rash, ulceration, clubbing, or edema. Radial and pedal pulses are 2/4 bilaterally. Neurological: No focal deficits. Strength and sensation are grossly intact. Results CBC & Chem 7: 04/19/19 13:20 04/19/19 13:20 Labs: Abnormal Lab Results - Last 24 Hours (Table) 04/19/19 04/19/19 Range/Units 13: 17:03 Alkaline Phosphatase 33 L (38-126) U/L Ur Specific [place] >1.050 H (1.001-1.035) CT scan - abdomen: report reviewed (Dr. Harvey) Assessment and Plan (1) Abdominal pain Narrative/Plan: 19-year-old male with a six-week history of nonbloody emesis nausea intermittent upper abdominal pain with intermittent nonbloody bowel movements no more than 3 times daily. History of familial ALLERGIC colitis. CT reported transverse descending sigmoid rectal wall thickening consistent with colitis. Underlying infectious possible inflammatory colitis cannot be excluded. Current Visit: Yes Status: Acute Code(s): R10.9 - UNSPECIFIED ABDOMINAL PAIN SNOMED Code(s): 23671505 (2) Nausea & vomiting Current Visit: Yes Status: Acute Code(s): R11.2 - NAUSEA WITH VOMITING, UNSPECIFIED SNOMED Code(s): 14298659 Plan: 1. Clear liquids. Stool studies including culture, Clostridium difficile, fecal calprotectin, and giardia. 2. EGD colonoscopy tomorrow. The marketing and communications officer has discussed the risks, benefits and alternative therapies for the above-mentioned procedure and for both sedation/analgesia as well as necessary blood product administration, if indicated, as they pertain to this patient. The patient has indicated understanding and acceptance of the risks and procedures discussed. Thank you for this kind referral and the opportunity to participate in the care of your patient. This consultation was discussed with Dr. Harvey. The impression and plan of care have been directed as dictated.
[2019-04-20] MEDS ORDERED: BISACODYL 5 MG TABLET.DR PO ONE (14:00)
[2019-04-20] MEDS ORDERED: PEG 3350-NA SULF,BICARB,CL/KCL 4,000 ML BOTTLE PO ONE (17:00)
[2019-04-20] MEDS: OXCARBAZEPINE PO SCH (21:16)
[2019-04-20] MEDS: MELATONIN 5 MG TABLET PO SCH (21:17)
[2019-04-20] MEDS: FAMOTIDINE 20 MG/2 ML VIAL IV SCH (21:18)
--- NOTE | 2019-04-21 07:52 | P.DS ---
Providers Date of admission: 04/19/19 15:20 Attending physician: Davian Nam Consults: 04/19/19 15:21 Consult Physician Urgent Consulting Provider: Tad Piedra Consult Reason/Comments: Colitis Do you want consulting provider notified?: Yes Primary care physician: Davian Nam - Discharge Diagnosis(es) (1) Abdominal pain Current Visit: Yes Status: Acute (2) Colitis Current Visit: Yes Status: Acute (3) Nausea & vomiting Current Visit: Yes Status: Acute Hospital Course: This is a discharge summary 19-year-old white male essentially admitted for colitis. He will be having appropriate EGD and colonoscopy today. He'll be discharged once cleared by GI versus awaiting pathology results. Question celiac disease versus inflammatory bowel disease. The mother and the patient and I have discussed the possible outcomes. We will DC once cleared by GI. Patient Condition at Discharge: Fair Plan - Discharge Summary Discharge Rx Participant: Yes New Discharge Prescriptions: No Action OXcarbazepine [Oxtellar Xr] 1,200 mg PO DAILY Sertraline [Zoloft] 50 mg PO DAILY Ondansetron [Zofran ODT] 4 mg PO Q8HR PRN #10 tab PRN Reason: Nausea Omeprazole [PriLOSEC] 40 mg PO DAILY Discharge Medication List OXcarbazepine [Oxtellar Xr] 1,200 mg PO DAILY 09/06/14 [History] Sertraline [Zoloft] 50 mg PO DAILY 02/03/19 [History] Ondansetron [Zofran ODT] 4 mg PO Q8HR PRN #10 tab 02/14/19 [Rx] Omeprazole [PriLOSEC] 40 mg PO DAILY 04/19/19 [History] Follow up Appointment(s)/Referral(s): Davian Nam MD [Primary Care Provider] - 3 Days Discharge Disposition: HOME SELF-CARE
[2019-04-21] MEDS: FAMOTIDINE 20 MG/2 ML VIAL IV SCH (08:27)
[2019-04-21] MEDS: OXCARBAZEPINE PO SCH (10:18)
[2019-04-21] MEDS ORDERED: IV FLUID CONTINUATION 1,000 ML IV ONE (11:08)
[2019-04-21] MEDS ORDERED: PROPOFOL 10 MG/ML 20 ML VIAL IV ONE (11:08)
[2019-04-21] MEDS ORDERED: LIDOCAINE 1% INJ 10MG/ML (20 ML MDV) ONE (11:08)
--- NOTE | 2019-04-21 11:40 | P.PCN ---
Date of Procedure: 04/21/19 Procedure(s) Performed: Brief history: Patient is a pleasant 19-year-old white male, admitted to the hospital with intermittent episodes of nausea vomiting and/or her alternating diarrhea constipation for the last 2 months duration. She has these episodes at least 3- 4 times a week and lasts for a few hours. He has episodes of diarrhea with 3-4 loose watery bowel movements daily but no bleeding. Also complains of right lower quadrant abdominal pain. CT of the abdomen and pelvis showed thickening of the left colon suspicious for IBD. He is hence scheduled for an elective upper endoscopy as well as colonoscopy as a part of evaluation of his ongoing symptoms. Procedure performed: Esophagogastroduodenoscopy with biopsy Colonoscopy with biopsy Preoperative diagnosis: Intermittent episodes of nausea vomiting of 2 months duration Altered bowel movements/chronic diarrhea of 2 months duration Right lower quadrant abdominal pain Anesthesia: MAC Procedure: After informed consent was obtained from the patient was brought into the endoscopy unit and IV sedation was administered by anesthesia under continuous monitoring. Initially upper endoscopy was done. The Olympus GF 160 video endoscope was inserted inserted into the mouth and esophagus intubated without any difficulty and was gradually advanced into the stomach and duodenum and carefully examined. The bulb and second part of the duodenum appeared normal. Biopsies were done from the duodenum to rule out celiac disease. The scope was then withdrawn into the stomach adequately insufflated with air and upon careful examination the antrum had minimal gastritis and biopsies were also done from this area. The body, cardia and fundus appeared normal. The scope was then withdrawn into the esophagus. The GE junction was located at 40 cm to the incisors. It appeared regular with no erythema erosions or ulcerations. Rest of the esophagus appeared normal. Patient tolerated the procedure well. At this time the patient continued to remain sedation. Initial digital rectal examination was normal. Olympus CF 160 video colonoscope was then inserted into the rectum and gradually advanced to the cecum without any difficulty. Careful examination was performed as the scope was gradually being withdrawn. The prep was excellent. terminal ileum was intubated and 20 cm visualized and appeared normal. Biopsies were done from this area. The cecum, ascending colon, transverse colon, descending colon, sigmoid colon and rectum appeared normal. was one patchy area of erythema noted in the sigmoid colon extending 3-4 cm in length with no erosions or ulcerations and biopsies were done from this area. Also random biopsies were done from ascending and descending colon. Retroflexion was performed in the rectum and no lesions were noted. Patient tolerated the procedure well. Impression: 1. Upper endoscopy revealed minimal antral gastritis but no evidence of esophagitis or peptic ulcer disease 2. Colonoscopy revealed a small patchy area of erythema noted in the sigmoid colon with mild mucosal erythema but no evidence of erosions or ulcerations. Rest of the colon appeared entirely normal. Terminal ileum appeared normal. Recommendations: Findings of this examination were discussed with the patient as well as his family. He was advised to follow with the biopsy results. Diet will be advanced as tolerated. He can be discharged home today with outpatient follow- up in 2 weeks.
[2019-04-21] MEDS ORDERED: LACTATED RINGERS 1,000 ML IV SCH (11:46)
[2019-04-21 11:58] VITALS: RESP 17; TEMP 98.1
[2019-04-21 12:49] VITALS: BP 132/79; PULSE 57
[2019-04-21] MEDS: SODIUM CHLORIDE 0.9% 1,000 ML IV SCH (13:01)
== END 2019-04-21 13:50 | disposition home or self-care (01) ==
LOC: EC 12:52 → 3NMEDONC 15:20
PROVIDERS: ADMIT Family Medicine; ATTEND Family Medicine
DX: K52.9 Noninfective gastroenteritis and colitis, unspecified (principal); K29.50 Unspecified chronic gastritis without bleeding; G89.29 Other chronic pain; R63.4 Abnormal weight loss; G40.909 Epilepsy, unspecified, not intractable, without status epilepticus; F17.210 Nicotine dependence, cigarettes, uncomplicated; Z79.899 Other long term (current) drug therapy; Z88.8 Allergy status to other drugs, medicaments and biological substances; Z90.89 Acquired absence of other organs; Z86.19 Personal history of other infectious and parasitic diseases; Z82.49 Family history of ischemic heart disease and other diseases of the circulatory system; Z83.3 Family history of diabetes mellitus; Z83.79 Family history of other diseases of the digestive system
CPT/HCPCS: 96376; 96361 ×3; 96374; 96375; 99285; 36415; 88305; 80053; 85652; 82150; 83690; 85025; 86140; 82272; 81003; 83993; 87045; 87329; 83630; 87046; 74177; 45380; 43239; G0378 ×3; J2405; J2001; J2704; C9113; Q9967

== ENCOUNTER → 2019-04-30 | Outpatient (CLI) | payer BC ==
--- NOTE | 2019-04-30 14:53 | NM ---
EXAMINATION TYPE: NM hepatobiliary w EF DATE OF EXAM: 04/30/2019 COMPARISON: NONE HISTORY: TECHNIQUE: After the intravenous administration of 4.4 mCi Tc 99m Mebrofenin hepatobiliary scintigrap hy is performed. Immediate images post injection. FINDINGS: There is satisfactory initial accumulation of tracer by the liver. The gallbladder is visualized wit hin 8 minutes. The small bowel activity is noted within 18 minutes. At one hour 8 ounces of oral en sure plus is given to mimic CCK and gallbladder ejection fraction is calculated at 79 %, in the vladislav l range. Therefore there is no scintigraphic evidence of cystic or common bile duct obstruction to s uggest acute cholecystitis or gallbladder dyskinesia. IMPRESSION: Normal hepatobiliary scan. Normal gallbladder ejection fraction. No focal liver defect.
== END | disposition home or self-care (01) ==
LOC: RADNMMAIN 11:30
DX: R11.2 Nausea with vomiting, unspecified (principal)
CPT/HCPCS: 78226; A9537

== ENCOUNTER 2020-01-03 16:57 | Emergency (ER) | payer BC ==
[2020-01-03 17:06] VITALS: RESP 18
[2020-01-03] MEDS ORDERED: MORPHINE SULFATE 2 MG/ML SYRINGE IVP STA (17:18)
[2020-01-03 17:24] LABS: Basophils % (A) 1 %; Eosinophils # (A) 0.2 k/uL (0-0.7); Eosinophils % (A) 2 %; HGB 16.1 gm/dL (13.0-17.5); Lymphocytes % (A) 27 %; MCH 27.4 pg (25.0-35.0); MCHC 32.8 g/dL (31.0-37.0); MCV 83.5 fL (80.0-100.0); Mean Platelet Volume 9.5; Monocytes # (A) 0.4 k/uL (0-1.0); Monocytes % (A) 5 %; Neutrophils # (A) 4.6 k/uL (1.3-7.7); Neutrophils % (A) 63 %; Platelet Count 210 k/uL (150-450); RBC 5.87 m/uL (4.30-5.90); RDW 13.5 % (11.5-15.5); WBC 7.3 k/uL (3.8-10.6)
--- NOTE | 2020-01-03 17:31 | ED ---
Seizure HPI - General Chief Complaint: Seizure Stated Complaint: ALtered, Poss Seizure Time Seen by Provider: 01/03/20 17:09 Source: patient Mode of arrival: EMS Limitations: no limitations - History of Present Illness Initial Comments: 19-year-old male history of epilepsy presents emergency department today for possible seizure, mother states that his younger brother was outside his room and her dictating choking sound she states when he went to wake him up he seemed out of it and was not making sense he seemed confused. Mother states he is not shaking at that time. Patient states he woke up and felt like he had just had a seizure he states he had a headache and was nauseated which is what he experiences after. He states he usually feels out of it. Patient mother called EMS. Who states patient was AAOx4, did seem sluggish as though he was post ictal. On arrival no focal deficits, complaining of headache, nausea, he was no actively seizing. Pt did not take medications yet for the day. patient denies use of drugs or alcohol. Denies chest pain, shortness of breath, neck pain or fevers. Denies any unusual symptoms this morning such as LEVINE/nausea. Patient appears well on arrival, VS stable. - Related Data Home Medications Medication Instructions Recorded Confirmed OXcarbazepine [Oxtellar Xr] 1,200 mg PO DAILY 09/06/14 04/19/19 Sertraline [Zoloft] 50 mg PO DAILY 02/03/19 04/19/19 Omeprazole [PriLOSEC] 40 mg PO DAILY 04/19/19 04/19/19 Previous Rx's Medication Instructions Recorded Ondansetron [Zofran ODT] 4 mg PO Q8HR PRN #10 tab 02/14/19 Melatonin 10 mg PO HS tablet 04/21/19 Allergies Allergy/AdvReac Type Severity Reaction Status Date / Time diphenhydramine HCl Allergy Unknown-SEE Verified 01/03/20 17:01 [From Benadryl] COMMENTS sumatriptan [From Imitrex] AdvReac seizure Verified 01/03/20 17:01 sumatriptan succinate AdvReac seizure Verified 01/03/20 17:01 [From Imitrex] Review of Systems ROS Statement: Those systems with pertinent positive or pertinent negative responses have been documented in the HPI. ROS Other: All systems not noted in ROS Statement are negative. Past Medical History Past Medical History: Seizure Disorder Additional Past Medical History / Comment(s): History of treated syphilitic infection-2019 History of Any Multi-Drug Resistant Organisms: None Reported Past Surgical History: Adenoidectomy, Tonsillectomy Additional Past Surgical History / Comment(s): undecended testicle Past Anesthesia/Blood Transfusion Reactions: No Reported Reaction Past Psychological History: No Psychological Hx Reported Smoking Status: Current every day smoker Past Alcohol Use History: Rare Past Drug Use History: None Reported - Past Family History Mother Family Medical History: Hypertension Additional Family Medical History / Comment(s): on mothers side their is an exte nsive history of colitis, ulcerative colitis, IBS Chrohns Father Family Medical History: Diabetes Mellitus General Exam - General Exam Comments Initial Comments: General: The patient is awake and alert, in no distress, and does not appear acutely ill. Eye: Pupils are equal, round and reactive to light, extra-ocular movements are intact. No nystagmus. There is normal conjunctiva bilaterally. No signs of icterus. Ears, nose, mouth and throat: There are moist mucous membranes and no oral lesions. Neck: The neck is supple, there is no tenderness or JVD. Cardiovascular: There is a regular rate and rhythm. No murmur, rub or gallop is appreciated. Respiratory: Lungs are clear to auscultation, respirations are non-labored, breath sounds are equal. No wheezes, stridor, rales, or rhonchi. Gastrointestinal: Soft, non-distended, non-tender abdomen without masses or organomegaly noted. There is no rebound or guarding present. Musculoskeletal: Normal ROM, no tenderness. Strength 5/5. Sensation intact. Pulses equal bilaterally 2+. Neurological: A&O x 3. CN II-XII intact, There are no obvious motor or sensory deficits. Coordination appears grossly intact. Speech is normal. Skin: Skin is warm and dry and no rashes or lesions are noted. Concave chest wall. Psychiatric: Cooperative, appropriate mood & affect, normal judgment. Limitations: no limitations Course Vital Signs 01/03/20 01/03/20 17:01 18:51 Temperature 96.8 F L 97.9 F Pulse Rate 76 58 L Respiratory 18 18 Rate Blood Pressure 120/76 104/57 O2 Sat by Pulse 97 98 Oximetry Medical Decision Making - Medical Decision Making CT brain (-). No fall hx. No tongue injury. No additional seizure witnessed. Patient states he feels exactly like he usually does after a seizure. Mother states patient is at baseline. Patient labs stable. He appears well, symptoms improved after symptomatic treatment. Patient will be discharged patient states he would rather take his long acting medication at home, rather than take medic ations now. Patient is to f/u with neurology tomorrow morning. Patient and mother verbalize importance of return parameters which include any behavioral changes/recurrent seizure activity or other concerns/fevers etc. as well as verbalized understanding of importance of f/u. Discharged appearing well. - Lab Data Result diagrams: 01/03/20 17:09 01/03/20 17:09 Lab Results 01/03/20 01/03/20 Range/Units 17:09 17:09 WBC 7.3 (3.8-10.6) k/uL RBC 5.87 (4.30-5.90) m/uL Hgb 16.1 (13.0-17.5) gm/dL Hct 49.0 (39.0-53.0) % MCV 83.5 (80.0-100.0) fL MCH 27.4 (25.0-35.0) pg MCHC 32.8 (31.0-37.0) g/dL RDW 13.5 (11.5-15.5) % Plt Count 210 (150-450) k/uL Neutrophils % 63 % Lymphocytes % 27 % Monocytes % 5 % Eosinophils % 2 % Basophils % 1 % Neutrophils # 4.6 (1.3-7.7) k/uL Lymphocytes # 2.0 (1.0-4.8) k/uL Monocytes # 0.4 (0-1.0) k/uL Eosinophils # 0.2 (0-0.7) k/uL Basophils # 0.0 (0-0.2) k/uL Sodium 137 (137-145) mmol/L Potassium 5.1 (3.5-5.1) mmol/L Chloride 104 (98-107) mmol/L Carbon Dioxide 21 L (22-30) mmol/L Anion Gap 12 mmol/L BUN 15 (9-20) mg/dL Creatinine 0.72 (0.66-1.25) mg/dL Est GFR (CKD-EPI)AfAm >90 (>60 ml/min/1.73 sqM) Est GFR (CKD-EPI)NonAf >90 (>60 ml/min/1.73 sqM) Glucose 85 (74-99) mg/dL Calcium 10.1 (8.4-10.2) mg/dL Total Bilirubin 0.4 (0.2-1.3) mg/dL AST 27 (17-59) U/L ALT 15 (4-49) U/L Alkaline Phosphatase 35 L (38-126) U/L Total Protein 7.5 (6.3-8.2) g/dL Albumin 4.8 (3.5-5.0) g/dL Disposition Clinical Impression: Seizure Disposition: HOME SELF-CARE Condition: Good Instructions (If sedation given, give patient instructions): Recurrent Seizures in Adults (ED) Additional Instructions: Please use medication as discussed. Please follow-up with family doctor in the next 2 days, neurologist in next week. Please return to emergency room if the symptoms increase or worsen or for any other concerns. Is patient prescribed a controlled substance at d/c from ED?: No Referrals: Davian aNm MD [Primary Care Provider] - 1-2 days Time of Disposition: 18:01
[2020-01-03 17:34] LABS: ALT 15 U/L (4-49); AST 27 U/L (17-59); African American GFR (CKD) >90 (>60 ml/min/1.73 sqM); Albumin 4.8 g/dL (3.5-5.0); Alkaline Phosphatase 35 U/L (38-126); Anion Gap 12 mmol/L; Blood Urea Nitrogen 15 mg/dL (9-20); Calcium 10.1 mg/dL (8.4-10.2); Carbon Dioxide 21 mmol/L (22-30); Chloride 104 mmol/L (98-107); Glucose 85 mg/dL (74-99); Non-African American GFR(CKD) >90 (>60 ml/min/1.73 sqM); Potassium 5.1 mmol/L (3.5-5.1); Sodium 137 mmol/L (137-145); Total Bilirubin 0.4 mg/dL (0.2-1.3); Total Protein 7.5 g/dL (6.3-8.2)
--- NOTE | 2020-01-03 17:43 | CT ---
EXAMINATION TYPE: CT brain wo con DATE OF EXAM: 01/03/2020 COMPARISON: CT and MRI brain November 03, 2012. HISTORY: seizure CT DLP: 1115.4 mGycm. Automated Exposure Control for Dose Reduction was Utilized. TECHNIQUE: CT scan of the head is performed without contrast. FINDINGS: There is no acute intracranial hemorrhage, mass effect, or midline shift identified. The ventricles and sulci are within normal limits in size. Medina-white matter differentiation is preserve d. The globes are intact and the visualized sinuses are clear. IMPRESSION: No acute intracranial hemorrhage, mass effect, or midline shift is seen. No significant change from prior studies.
[2020-01-03] MEDS ORDERED: SODIUM CHLORIDE 0.9% 1,000 ML IV ONE (17:44)
[2020-01-03] MEDS ORDERED: METOCLOPRAMIDE 5 MG/ML 2 ML VIAL IVP STA (17:44)
[2020-01-03 18:51] VITALS: BP 104/57; PULSE 58; TEMP 97.9
== END 2020-01-03 18:51 | disposition home or self-care (01) ==
LOC: EC 16:57
DX: G40.909 Epilepsy, unspecified, not intractable, without status epilepticus (principal); F17.200 Nicotine dependence, unspecified, uncomplicated; Z79.899 Other long term (current) drug therapy; Z88.8 Allergy status to other drugs, medicaments and biological substances
CPT/HCPCS: 36415; 80053; 85025; 70450; 99285; 96374; 96375; 96361; J2765; J2270

== ENCOUNTER → 2020-01-17 | Outpatient (CLI) | payer BC ==
--- NOTE | 2020-01-17 17:40 | MR ---
EXAMINATION TYPE: MR brain wo/w con DATE OF EXAM: 01/17/2020 COMPARISON: CT brain 01/03/2020 HISTORY: Abnormal EEG, Left Frontal Slowness, Epilepsy, Neoplasm TECHNIQUE: Multiplanar, multisequence images of the brain and brainstem is performed without and with IV contras t, utilizing 7 mL intravenous Gadavist . FINDINGS: Diffusion weighted images demonstrate no evidence of a recent infarct or other diffusion ab normality. There is no extra-axial fluid collection or significant white matter signal abnormality. The ventricular system and cisternal spaces are normal in size and appearance. The brain volume is age appropriate. Temporal lobe. Asymmetric with no evidence of atrophy or abnormal signal. Within the right parietal w broderick matter suspect that there is a tiny venous angioma. Nonspecific signal along the posterior occip ut on the right. too small to characterize. Midline structures demonstrate normal morphology. The craniocervical junction appears within normal limits. Mild prominence of the pituitary gland. Post contrast images demonstrate no abnormal enhance ment. The dural venous sinuses appear patent. Changes of chronic sinusitis noted. Orbits symmetric. IMPRESSION: 1. Pituitary gland appears to be prominent in size with a convex upper margin measuring 9 mm. Additio raj there is a rounded 4 mm area of intrinsic nonenhancing low signal highly suggestive of a pituit robles adenoma. Correlate clinically. 2. Suspect an incidental tiny venous angioma at the right frontoparietal white matter junction. 3. Mild chronic sinusitis.
== END | disposition home or self-care (01) ==
LOC: RADMRIMAIN 14:03
PROVIDERS: ATTEND Psychiatry & Neurology Neurology
DX: R94.01 Abnormal electroencephalogram [EEG] (principal); G40.909 Epilepsy, unspecified, not intractable, without status epilepticus; J32.9 Chronic sinusitis, unspecified; D49.9 Neoplasm of unspecified behavior of unspecified site
CPT/HCPCS: 70553; A9585

== ENCOUNTER 2020-02-09 11:35 | Emergency (ER) | payer BC ==
[2020-02-09 11:56] VITALS: TEMP 98.2
[2020-02-09] MEDS ORDERED: SODIUM CHLORIDE 0.9% 1,000 ML IV STA (12:23)
[2020-02-09] MEDS ORDERED: ONDANSETRON 4 MG/2 ML VIAL IVP STA (12:23)
[2020-02-09 13:06] LABS: Basophils % (A) 0 %; Eosinophils # (A) 0.1 k/uL (0-0.7); Eosinophils % (A) 2 %; HCT 43.9 % (39.0-53.0); HGB 15.1 gm/dL (13.0-17.5); Lymphocytes # (A) 1.4 k/uL (1.0-4.8); Lymphocytes % (A) 22 %; MCH 29.2 pg (25.0-35.0); MCHC 34.3 g/dL (31.0-37.0); MCV 84.9 fL (80.0-100.0); Mean Platelet Volume 9.2; Monocytes # (A) 0.3 k/uL (0-1.0); Monocytes % (A) 5 %; Neutrophils # (A) 4.3 k/uL (1.3-7.7); Neutrophils % (A) 69 %; Platelet Count 201 k/uL (150-450); RBC 5.17 m/uL (4.30-5.90); RDW 13.2 % (11.5-15.5); WBC 6.2 k/uL (3.8-10.6)
[2020-02-09 13:13] LABS: Appearance,Urine Cloudy (Clear); Bacteria,Urine Rare /hpf; Bilirubin,Urine Negative (Negative); Blood,Urine Negative (Negative); Color,Urine Yellow; Glucose,Urine (UA) Negative (Negative); Ketones,Urine Negative (Negative); Leukocyte Esterase,Urine Negative (Negative); Mucus,Urine Many /hpf; Nitrite,Urine Negative (Negative); Protein,Urine 2+ (Negative); RBC,Urine 2 /hpf (0-5); Specific Gravity,Urine 1.034 (1.001-1.035); Sperm,Urine Occasional /hpf; Squamous Epithelial Cell,Urine 2 /hpf (0-4); WBC,Urine 11 /hpf (0-5)
[2020-02-09 13:15] LABS: ALT 14 U/L (4-49); AST 20 U/L (17-59); African American GFR (CKD) >90 (>60 ml/min/1.73 sqM); Albumin 4.5 g/dL (3.5-5.0); Alkaline Phosphatase 33 U/L (38-126); Anion Gap 8 mmol/L; Blood Urea Nitrogen 22 mg/dL (9-20); Calcium 9.7 mg/dL (8.4-10.2); Carbon Dioxide 26 mmol/L (22-30); Chloride 105 mmol/L (98-107); Glucose 96 mg/dL (74-99); Non-African American GFR(CKD) >90 (>60 ml/min/1.73 sqM); Potassium 4.2 mmol/L (3.5-5.1); Sodium 139 mmol/L (137-145); Total Bilirubin 0.6 mg/dL (0.2-1.3); Total Protein 6.9 g/dL (6.3-8.2)
--- NOTE | 2020-02-09 13:26 | XR ---
EXAMINATION TYPE: XR chest 2V DATE OF EXAM: 02/09/2020 COMPARISON: 11/03/2012 HISTORY: Chest and abdominal pain TECHNIQUE: Frontal and lateral views of the chest are obtained. FINDINGS: There is no focal air space opacity, pleural effusion, or pneumothorax seen. The cardiac silhouette size is within normal limits. The osseous structures are intact. Pectus excavatum deform ity partially obscures the right heart border as seen on the prior of 2012. IMPRESSION: No acute cardiopulmonary process.
--- NOTE | 2020-02-09 13:27 | XR ---
EXAMINATION TYPE: XR KUB DATE OF EXAM: 02/09/2020 1:21 PM CLINICAL HISTORY: Abdominal pain, nausea, and vomiting TECHNIQUE: Single upright image of the abdomen is obtained. COMPARISON: 08/27/2006. FINDINGS: The liver is elongated extending past the iliac crest. There is a levoscoliosis of the lumb ar spine. Lung bases are well aerated. Osseous structures are grossly intact. No suspicious calcifica tion in the abdomen or pelvis. No dilated large or small bowel. IMPRESSION: Nonobstructive bowel gas pattern. Hepatomegaly.
--- NOTE | 2020-02-09 13:33 | ED ---
General Adult HPI - General Chief complaint: Nausea/Vomiting/Diarrhea Stated complaint: Vomiting Time Seen by Provider: 02/09/20 11:59 Source: patient, RN notes reviewed, old records reviewed Mode of arrival: ambulatory Limitations: no limitations - History of Present Illness Initial comments: 19-year-old male patient presents to ED for evaluation of nausea and vomiting as well as diarrhea. Patient reports this has been ongoing for approximately 1.5 weeks. States in the morning he feels nauseous any has been having some dry heaving which is mostly just producing saliva. Denies any abdominal pain. Patient reports that he does have a mild baseline cough which she attributes to smoking. Denies any significant changes to her getting worse recently. Denies any fevers or chills. Denies any other complaints. Systemic: Pt denies fatigue, fever/chills, rash. Pt denies weakness, night sweats, weight loss. Neuro: Pt denies headache, visual disturbances, syncope or pre-syncope. HEENT: Pt denies ocular discharge or irritation, otalgia, rhinorrhea, pharyngitis or notable lymphadenopathy. Cardiopulmonary: Pt denies chest pain, SOB, heart palpitations, dyspnea on exertion. Abdominal/GI: Pt denies abdominal pain. : Pt denies dysuria, burning w/ urination, frequency/urgency. Denies new onset urinary or bowel incontinence. MSK: Pt denies myalgia, loss of strength or function in extremities. Neuro: Pt denies new onset weakness, paresthesias. - Related Data Home Medications Medication Instructions Recorded Confirmed OXcarbazepine [Oxtellar Xr] 1,200 mg PO DAILY 09/06/14 04/19/19 Sertraline [Zoloft] 50 mg PO DAILY 02/03/19 04/19/19 Omeprazole [PriLOSEC] 40 mg PO DAILY 04/19/19 04/19/19 Previous Rx's Medication Instructions Recorded Ondansetron [Zofran ODT] 4 mg PO Q8HR PRN #10 tab 02/14/19 Melatonin 10 mg PO HS tablet 04/21/19 Cephalexin [Keflex] 500 mg PO Q12HR 7 Days #14 cap 02/09/20 Ondansetron Odt [Zofran ODT] 4 mg PO Q8HR PRN #15 tab 02/09/20 Allergies Allergy/AdvReac Type Severity Reaction Status Date / Time diphenhydramine HCl Allergy Unknown-SEE Verified 02/09/20 11:56 [From Benadryl] COMMENTS sumatriptan [From Imitrex] AdvReac seizure Verified 02/09/20 11:56 sumatriptan succinate AdvReac seizure Verified 02/09/20 11:56 [From Imitrex] Review of Systems ROS Statement: Those systems with pertinent positive or pertinent negative responses have been documented in the HPI. ROS Other: All systems not noted in ROS Statement are negative. Past Medical History Past Medical History: Seizure Disorder Additional Past Medical History / Comment(s): History of treated syphilitic infection-2019 History of Any Multi-Drug Resistant Organisms: None Reported Past Surgical History: Adenoidectomy, Tonsillectomy Additional Past Surgical History / Comment(s): undecended testicle Past Anesthesia/Blood Transfusion Reactions: No Reported Reaction Past Psychological History: No Psychological Hx Reported Smoking Status: Current every day smoker Past Alcohol Use History: Rare Past Drug Use History: None Reported - Past Family History Mother Family Medical History: Hypertension Additional Family Medical History / Comment(s): on mothers side their is an extensive history of colitis, ulcerative colitis, IBS Chrohns Father Family Medical History: Diabetes Mellitus General Exam - General Exam Comments Initial Comments: Constitutional: NAD, AOX3, Pt has pleasant affect. HEENT: NC/AT, trachea midline, neck supple, no lymphadenopathy. Posterior pharynx non erythematous, without exudates. External ears appear normal, without discharge. Mucous membranes moist. Eyes PERRLA, EOM intact. There is no scleral icterus. No pallor noted. Cardiopulmonary: RRR, no murmurs, rubs or gallops, no JVD noted. Lungs CTAB in anterior and posterior gonzalez. No peripheral edema. Abdominal exam: Abdomen soft and non-distended. Abdomen non-tender to palpation in all 4 quadrants. Bowel sounds active in LLQ. No hepatosplenomegaly. No ecchymosis Neuro: CN II-XII grossly intact. No nuchal rigidity. No raccon eyes, no garner sign, no hemotympanum. No cervical spinal tenderness. MSK: No posterior calf tenderness bilaterally, homans sign negative bilaterally. Posterior tibialis and radial pulse +2 bilaterally. Sensation intact in upper and lower extremities. Full active ROM in upper and lower extremities, 5/5 stregnth. Limitations: no limitations Course Vital Signs 02/09/20 02/09/20 11:40 11:54 Temperature 98.2 F Pulse Rate 86 73 Respiratory 16 18 Rate Blood Pressure 130/79 133/82 O2 Sat by Pulse 99 100 Oximetry Medical Decision Making - Medical Decision Making 19-year-old male patient presents to ED for evaluation of nausea and vomiting as well as diarrhea. Patient reports this has been ongoing for approximately 1.5 weeks. States in the morning he feels nauseous any has been having some dry heaving which is mostly just producing saliva. Denies any abdominal pain. Patient reports that he does have a mild baseline cough which she attributes to smoking. Denies any significant changes to her getting worse recently. Denies any fevers or chills. Denies any other complaints. Patient relatively stable, afebrile. Physical exam does not display acute pathology. Abdomen soft and nontender. Laboratory investigations are obtained and are overall unremarkable. Patient does have 2+ protein in his urine and 11 white blood cells. Rare bacteria is noted. KUB does display hepatomegaly. Chest x-ray revealed no acute cardiopulmonary process. Patient reports that he is feeling much improved with fluids and nausea medication. Patient declined any concern for sexually transmitted infections states that he has not been sexually active for months. Declined empiric treatment. Urine will be cultured. Patient be treated with Keflex twice a day for one week for urinary tract infection. She'll be prescribed Zofran and will follow up with his primary care provider tomorrow for further evaluation. Will return to ED if condition worsens. Ruby discussed with Dr. Prado. - Lab Data Result diagrams: 02/09/20 12:42 02/09/20 12:42 Lab Results 02/09/20 02/09/20 02/09/20 Range/Units 12:42 12:42 12:42 WBC 6.2 (3.8-10.6) k/uL RBC 5.17 (4.30-5.90) m/uL Hgb 15.1 (13.0-17.5) gm/dL Hct 43.9 (39.0-53.0) % MCV 84.9 (80.0-100.0) fL MCH 29.2 (25.0-35.0) pg MCHC 34.3 (31.0-37.0) g/dL RDW 13.2 (11.5-15.5) % Plt Count 201 (150-450) k/uL Neutrophils % 69 % Lymphocytes % 22 % Monocytes % 5 % Eosinophils % 2 % Basophils % 0 % Neutrophils # 4.3 (1.3-7.7) k/uL Lymphocytes # 1.4 (1.0-4.8) k/uL Monocytes # 0.3 (0-1.0) k/uL Eosinophils # 0.1 (0-0.7) k/uL Basophils # 0.0 (0-0.2) k/uL Sodium 139 (137-145) mmol/L Potassium 4.2 (3.5-5.1) mmol/L Chloride 105 (98-107) mmol/L Carbon Dioxide 26 (22-30) mmol/L Anion Gap 8 mmol/L BUN 22 H (9-20) mg/dL Creatinine 0.74 (0.66-1.25) mg/dL Est GFR (CKD-EPI)AfAm >90 (>60 ml/min/1.73 sqM) Est GFR (CKD-EPI)NonAf >90 (>60 ml/min/1.73 sqM) Glucose 96 (74-99) mg/dL Plasma Lactic Acid Mo 0.8 (0.7-2.0) mmol/L Calcium 9.7 (8.4-10.2) mg/dL Total Bilirubin 0.6 (0.2-1.3) mg/dL AST 20 (17-59) U/L ALT 14 (4-49) U/L Alkaline Phosphatase 33 L (38-126) U/L Total Protein 6.9 (6.3-8.2) g/dL Albumin 4.5 (3.5-5.0) g/dL Lipase 160 (23-300) U/L Urine Color Urine Appearance (Clear) Urine pH (5.0-8.0) Ur Specific Mckenzie (1.001-1.035) Urine Protein (Negative) Urine Glucose (UA) (Negative) Urine Ketones (Negative) Urine Blood (Negative) Urine Nitrite (Negative) Urine Bilirubin (Negative) Urine Urobilinogen (<2.0) mg/dL Ur Leukocyte Esterase (Negative) Urine RBC (0-5) /hpf Urine WBC (0-5) /hpf Ur Squamous Epith Cells (0-4) /hpf Urine Bacteria (None) /hpf Urine Mucus (None) /hpf Urine Sperm (None) /hpf 02/09/20 Range/Units 12:42 WBC (3.8-10.6) k/uL RBC (4.30-5.90) m/uL Hgb (13.0-17.5) gm/dL Hct (39.0-53.0) % MCV (80.0-100.0) fL MCH (25.0-35.0) pg MCHC (31.0-37.0) g/dL RDW (11.5-15.5) % Plt Count (150-450) k/uL Neutrophils % % Lymphocytes % % Monocytes % % Eosinophils % % Basophils % % Neutrophils # (1.3-7.7) k/uL Lymphocytes # (1.0-4.8) k/uL Monocytes # (0-1.0) k/uL Eosinophils # (0-0.7) k/uL Basophils # (0-0.2) k/uL Sodium (137-145) mmol/L Potassium (3.5-5.1) mmol/L Chloride (98-107) mmol/L Carbon Dioxide (22-30) mmol/L Anion Gap mmol/L BUN (9-20) mg/dL Creatinine (0.66-1.25) mg/dL Est GFR (CKD-EPI)AfAm (>60 ml/min/1.73 sqM) Est GFR (CKD-EPI)NonAf (>60 ml/min/1.73 sqM) Glucose (74-99) mg/dL Plasma Lactic Acid Mo (0.7-2.0) mmol/L Calcium (8.4-10.2) mg/dL Total Bilirubin (0.2-1.3) mg/dL AST (17-59) U/L ALT (4-49) U/L Alkaline Phosphatase (38-126) U/L Total Protein (6.3-8.2) g/dL Albumin (3.5-5.0) g/dL Lipase (23-300) U/L Urine Color Yellow Urine Appearance Cloudy (Clear) Urine pH 6.0 (5.0-8.0) Ur Specific Mckenzie 1.034 (1.001-1.035) Urine Protein 2+ H (Negative) Urine Glucose (UA) Negative (Negative) Urine Ketones Negative (Negative) Urine Blood Negative (Negative) Urine Nitrite Negative (Negative) Urine Bilirubin Negative (Negative) Urine Urobilinogen 2.0 (<2.0) mg/dL Ur Leukocyte Esterase Negative (Negative) Urine RBC 2 (0-5) /hpf Urine WBC 11 H (0-5) /hpf Ur Squamous Epith Cells 2 (0-4) /hpf Urine Bacteria Rare H (None) /hpf Urine Mucus Many H (None) /hpf Urine Sperm Occasional H (None) /hpf Disposition Clinical Impression: Nausea vomiting and diarrhea Disposition: HOME SELF-CARE Condition: Stable Instructions (If sedation given, give patient instructions): Acute Diarrhea (ED), Acute Nausea and Vomiting (ED), Nutrition Tips for Relief of Diarrhea (ED) Additional Instructions: Follow-up with primary care provider tomorrow. Take antibiotics as directed. Use Zofran as needed for nausea. May Zofran every 8 hours. Have recheck of urine by primary care provider tomorrow. Return to ER physician worsens. Recommend BRAT diet. Avoid alcohol or fatty foods. Prescriptions: Cephalexin [Keflex] 500 mg PO Q12HR 7 Days #14 cap Ondansetron Odt [Zofran ODT] 4 mg PO Q8HR PRN #15 tab PRN Reason: Nausea Is patient prescribed a controlled substance at d/c from ED?: No Referrals: Davian Nam MD [Primary Care Provider] - 1-2 days
[2020-02-09] MEDS ORDERED: CEPHALEXIN 500MG STARTER PACK 4 CAP BTL PO STA (14:16)
[2020-02-09 14:49] VITALS: BP 120/83; PULSE 71; RESP 16
[2020-02-10 16:10] LABS: C. trachomatis,PCR Negative (Neg,Equiv); Chlamydia trachomatis Source Urine
[2020-02-10 16:21] LABS: N. gonorrhoeae,PCR Negative (Neg,Equiv); Neisseria Source Urine
== END 2020-02-09 14:48 | disposition home or self-care (01) ==
LOC: EC 11:35
DX: R11.2 Nausea with vomiting, unspecified (principal); R19.7 Diarrhea, unspecified; R05 Cough; R16.0 Hepatomegaly, not elsewhere classified; G40.909 Epilepsy, unspecified, not intractable, without status epilepticus; F17.200 Nicotine dependence, unspecified, uncomplicated; Z88.8 Allergy status to other drugs, medicaments and biological substances
CPT/HCPCS: 36415; 80053; 83605; 83690; 85025; 81001; 87491; 87591; 87086; 71046; 74018; 99284; 96374; 96361; U0003; J2405

== ENCOUNTER 2020-12-10 16:47 | Emergency (ER) | payer OTHER, BC ==
[2020-12-10 16:53] VITALS: RESP 18
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
[2020-12-10 17:49] VITALS: BP 126/60; PULSE 70; TEMP 97.8
== END 2020-12-10 18:06 | disposition home or self-care (01) ==
LOC: EC 16:47
DX: G40.909 Epilepsy, unspecified, not intractable, without status epilepticus (principal); F17.200 Nicotine dependence, unspecified, uncomplicated
CPT/HCPCS: 36415; 80183; 99284

== ENCOUNTER 2021-02-27 02:49 | Emergency (ER) | payer BC, OTHER ==
[2021-02-27 02:56] VITALS: RESP 20; TEMP 98
[2021-02-27] MEDS ORDERED: SODIUM CHLORIDE 0.9% 500 ML 500 ML IV STA (02:57)
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
[2021-02-27 03:23] LABS: ALT 16 U/L (4-49); AST 25 U/L (17-59); Acetaminophen <10.0 ug/mL; African American GFR (CKD) >90 (>60 ml/min/1.73 sqM); Albumin 4.5 g/dL (3.5-5.0); Alcohol <10 mg/dL; Alkaline Phosphatase 37 U/L (38-126); Anion Gap 10 mmol/L; Basophils % (A) 0 %; Blood Urea Nitrogen 16 mg/dL (9-20); Calcium 9.9 mg/dL (8.4-10.2); Carbon Dioxide 24 mmol/L (22-30); Chloride 105 mmol/L (98-107); Eosinophils # (A) 0.2 k/uL (0-0.7); Eosinophils % (A) 2 %; Glucose 96 mg/dL (74-99); HCT 44.9 % (39.0-53.0); HGB 14.7 gm/dL (13.0-17.5); Lymphocytes # (A) 2.6 k/uL (1.0-4.8); Lymphocytes % (A) 27 %; MCH 27.8 pg (25.0-35.0); MCHC 32.7 g/dL (31.0-37.0); MCV 85.1 fL (80.0-100.0); Mean Platelet Volume 8.9; Monocytes # (A) 0.5 k/uL (0-1.0); Monocytes % (A) 6 %; Neutrophils # (A) 5.9 k/uL (1.3-7.7); Neutrophils % (A) 63 %; Non-African American GFR(CKD) >90 (>60 ml/min/1.73 sqM); Platelet Count 247 k/uL (150-450); Potassium 4.3 mmol/L (3.5-5.1); RBC 5.28 m/uL (4.30-5.90); RDW 13.3 % (11.5-15.5); Salicylate <1.0 mg/dL; Sodium 139 mmol/L (137-145); Total Bilirubin 0.3 mg/dL (0.2-1.3); Total Protein 6.9 g/dL (6.3-8.2); WBC 9.5 k/uL (3.8-10.6)
[2021-02-27 04:12] LABS: Amphetamine Screen,Urine Not Detected (NotDetected); Barbiturate Screen,Urine Not Detected (NotDetected); Benzodiazepines Screen,Urine Not Detected (NotDetected); Cocaine Screen,Urine Not Detected (NotDetected); Methadone Screen, Urine Not Detected (NotDetected); Opiate Screen,Urine Not Detected (NotDetected); Oxycodone Screen, Urine Not Detected (NotDetected); Phencyclidine Screen,Urine Not Detected (NotDetected); Tricyclic Antidepressant,Urine Not Detected (NotDetected); Urn Cannabinoid Scrn Detected (NotDetected)
[2021-02-27 04:23] VITALS: BP 116/60; PULSE 70
== END 2021-02-27 04:22 | disposition home or self-care (01) ==
LOC: EC 02:49
DX: G40.409 Other generalized epilepsy and epileptic syndromes, not intractable, without status epilepticus (principal); F17.200 Nicotine dependence, unspecified, uncomplicated; Z88.8 Allergy status to other drugs, medicaments and biological substances
CPT/HCPCS: 36415; 80053; 80143; 80179; 80306; 80320; 83735; 85025; 93005; 99285

== ENCOUNTER 2021-02-27 09:23 | Inpatient (IN) | payer BC ==
[2021-02-27] MEDS: LORazepam 2 MG/ML INJ IV STA ×3 (09:28→09:47)
[2021-02-27] MEDS ORDERED: LORazepam 2 MG/ML INJ IV STA ×3 (09:29→14:45)
[2021-02-27] MEDS ORDERED: SODIUM CHLORIDE 0.9% 500 ML 500 ML IV STA (09:34)
[2021-02-27] MEDS ORDERED: SODIUM CHLORIDE 0.9% 1,000 ML IV STA ×2 (09:34→11:51)
[2021-02-27] MEDS ORDERED: levETIRAcetam IV 1,000 MG in SALINE 1 100ML.BAG IVPB STA (09:41)
[2021-02-27 09:48] LABS: Glucose,Whole Blood 183 mg/dL (75-99)
[2021-02-27] MEDS ORDERED: PROPOFOL 10 MG/ML 20 ML VIAL IV ONE (10:08)
[2021-02-27 11:02] LABS: Acetaminophen <10.0 ug/mL; African American GFR (CKD) >90 (>60 ml/min/1.73 sqM); Alcohol <10 mg/dL; Anion Gap 19 mmol/L; Blood Urea Nitrogen 12 mg/dL (9-20); Calcium 8.9 mg/dL (8.4-10.2); Carbon Dioxide 13 mmol/L (22-30); Chloride 106 mmol/L (98-107); Glucose 169 mg/dL (74-99); Non-African American GFR(CKD) >90 (>60 ml/min/1.73 sqM); Salicylate <1.0 mg/dL; Sodium 138 mmol/L (137-145); Total Bilirubin 0.7 mg/dL (0.2-1.3)
[2021-02-27 11:13] LABS: Potassium 5.4 mmol/L (3.5-5.1)
[2021-02-27 11:14] LABS: ALT 23 U/L (4-49); AST 51 U/L (17-59); Albumin 4.5 g/dL (3.5-5.0); Alkaline Phosphatase 34 U/L (38-126); Total Protein 7.1 g/dL (6.3-8.2)
--- NOTE | 2021-02-27 11:29 | ED ---
Seizure HPI - General Chief Complaint: Seizure Stated Complaint: seizure Time Seen by Provider: 02/27/21 09:23 Source: patient, RN notes reviewed Mode of arrival: EMS Limitations: no limitations - History of Present Illness Initial Comments: This is a 20-year-old male with a history of seizure disorder who recently switched over to Vimpat from his previous medication who was here in the emergency department last evening and discharged but is back today by EMS after having multiple recurrent seizures. He was given 5 mg of her said by EMS personnel which is since settled down a bit but he started having evidence of tonic-clonic posturing clonic activity upon arrival here he was given Ativan admitted demonstrate evidence of recurrent seizure versus post ictal agitation. She did require sedation. Per EMS he did have urinary is no tongue biting noted. No trauma reported. MD Complaint: seizure - Related Data Home Medications Medication Instructions Recorded Confirmed Sertraline HCl [Zoloft] 100 mg PO DAILY 12/10/20 02/27/21 Lacosamide [Vimpat] 150 mg PO BID 02/27/21 02/27/21 Allergies Allergy/AdvReac Type Severity Reaction Status Date / Time diphenhydramine HCl Allergy Unknown-SEE Verified 02/27/21 09:51 [From Benadryl] COMMENTS sumatriptan [From Imitrex] AdvReac seizure Verified 02/27/21 09:51 sumatriptan succinate AdvReac seizure Verified 02/27/21 09:51 [From Imitrex] Review of Systems ROS Statement: Those systems with pertinent positive or pertinent negative responses have been documented in the HPI. ROS Other: All systems not noted in ROS Statement are negative. Limitations: ROS unobtainable due to patients medical condition Past Medical History Past Medical History: Seizure Disorder Additional Past Medical History / Comment(s): History of treated syphilitic infection-2019 History of Any Multi-Drug Resistant Organisms: None Reported Past Surgical History: Adenoidectomy, Tonsillectomy Additional Past Surgical History / Comment(s): undecended testicle Past Anesthesia/Blood Transfusion Reactions: No Reported Reaction Past Psychological History: No Psychological Hx Reported Smoking Status: Current some day smoker Past Alcohol Use History: Rare Past Drug Use History: None Reported - Past Family History Mother Family Medical History: Hypertension Additional Family Medical History / Comment(s): on mothers side their is an extensive history of colitis, ulcerative colitis, IBS Chrohns Father Family Medical History: Diabetes Mellitus General Exam - General Exam Comments Initial Comments: This a well-developed asthenic appearing male who is demonstrating patient Limitations: no limitations General appearance: obtunded Head exam: Present: atraumatic, normocephalic, normal inspection Eye exam: Present: other (Patient initially demonstrate some left lateral gaze but later went to midline) Pupils: Present: normal accommodation ENT exam: Present: normal exam, mucous membranes moist Neck exam: Present: normal inspection, full ROM, other. Absent: tenderness, meningismus, lymphadenopathy Respiratory exam: Present: normal lung sounds bilaterally (No stridor JVD or bruits), other (Patient does demonstrate pectus escavatum). Absent: respiratory distress, wheezes, rales, rhonchi, stridor Cardiovascular Exam: Present: normal rhythm, tachycardia GI/Abdominal exam: Present: soft, normal bowel sounds. Absent: distended, tenderness, guarding, rebound, rigid Extremities exam: Present: normal inspection, full ROM, normal capillary refill. Absent: tenderness, pedal edema, joint swelling, calf tenderness Back exam: Present: normal inspection Neurological exam: Present: altered, CN II-XII intact Psychiatric exam: Present: other (Unable to evaluate) Skin exam: Present: warm, dry, intact, normal color. Absent: rash Course Vital Signs 02/27/21 02/27/21 02/27/21 09:25 09:39 09:45 Temperature 97.4 F L Pulse Rate 110 H 103 H 135 H Respiratory 14 15 20 Rate Blood Pressure 121/72 165/87 O2 Sat by Pulse 97 100 Oximetry 02/27/21 02/27/21 02/27/21 10:00 10:15 10:30 Temperature Pulse Rate 120 H 102 H Respiratory 18 Rate Blood Pressure 130/49 105/50 123/84 O2 Sat by Pulse Oximetry 02/27/21 02/27/21 02/27/21 10:42 10:45 11:00 Temperature Pulse Rate 90 Respiratory 16 Rate Blood Pressure 110/46 110/46 117/65 O2 Sat by Pulse 100 100 Oximetry 02/27/21 02/27/21 02/27/21 11:15 11:16 11:30 Temperature Pulse Rate 90 84 75 Respiratory 18 14 21 Rate Blood Pressure 121/65 121/65 124/54 O2 Sat by Pulse 100 100 100 Oximetry 02/27/21 02/27/21 12:00 12:30 Temperature Pulse Rate 73 89 Respiratory 20 18 Rate Blood Pressure 125/60 122/57 O2 Sat by Pulse 100 100 Oximetry - Reevaluation(s) Reevaluation #1: 02/27/21 13:35 The patient did initially respond to benzodiazepines including Versed given by paramedics and Ativan in the emergency department IV Keppra was ordered patient later did require sedation with propofol. Reevaluation #2: 02/27/21 13:35 Dr. Berumen was consulted he did come see the patient in emergency department. He recommends the patient remained on the propofol drip and be admitted to ICU. Reevaluation #3: 02/27/21 14:25 Patient did require IV propofol bolus 2. Both were 70 mg. Both were done by nd Procedures - Intubation Sedative: Versed Mg Given: 5 Paralytic: Succinylcholine Mg Given: 70 Laryngoscope: Peña Size: 4 ET Tube Size: 8 ET Tube Uncuffed: No (Coughed) Tube Secured Depth (cm): 26 Tube Secured Location: lips Tube Placement Confirmation: visualized tube passing through cords, equal breath sounds bilaterally, no breath sounds over epigastrium, confirmation by capnometry Patient Tolerated Procedure: well Intubation Complications: none Medical Decision Making - Medical Decision Making Patient present with evidence of status epilepticus. Patient was seen in the emergency department by the neurologist Dr. Berumen. Patient will be admitted to intensive care unit after discussion with Dr. Rivera. He did require intubation for protection of the airway well under IV sedation. I did discuss this with the patient's mother prior to the event. Only lactic acid due to seizure activity and Lyme status no infectious source identified. - Lab Data Result diagrams: 02/27/21 12:17 02/27/21 10:16 Lab Results 02/27/21 02/27/21 02/27/21 Range/Units 09:37 10:14 10:16 WBC (3.8-10.6) k/uL RBC (4.30-5.90) m/uL Hgb (13.0-17.5) gm/dL Hct (39.0-53.0) % MCV (80.0-100.0) fL MCH (25.0-35.0) pg MCHC (31.0-37.0) g/dL RDW (11.5-15.5) % Plt Count (150-450) k/uL MPV Neutrophils % % Lymphocytes % % Monocytes % % Eosinophils % % Basophils % % Neutrophils # (1.3-7.7) k/uL Lymphocytes # (1.0-4.8) k/uL Monocytes # (0-1.0) k/uL Eosinophils # (0-0.7) k/uL Basophils # (0-0.2) k/uL Sodium 138 (137-145) mmol/L Potassium 5.4 H (3.5-5.1) mmol/L Chloride 106 (98-107) mmol/L Carbon Dioxide 13 L (22-30) mmol/L Anion Gap 19 mmol/L BUN 12 (9-20) mg/dL Creatinine 0.78 (0.66-1.25) mg/dL Est GFR (CKD-EPI)AfAm >90 (>60 ml/min/1.73 sqM) Est GFR (CKD-EPI)NonAf >90 (>60 ml/min/1.73 sqM) Glucose 169 H (74-99) mg/dL POC Glucose (mg/dL) 183 H (75-99) mg/dL POC Glu Laborer Pipelines ID Slick De La Cruz Lactic Ac Sepsis Rflx Plasma Lactic Acid Mo (0.7-2.0) mmol/L Calcium 8.9 (8.4-10.2) mg/dL Magnesium 2.2 (1.6-2.3) mg/dL Total Bilirubin 0.7 (0.2-1.3) mg/dL AST 51 (17-59) U/L ALT 23 (4-49) U/L Alkaline Phosphatase 34 L (38-126) U/L Total Protein 7.1 (6.3-8.2) g/dL Albumin 4.5 (3.5-5.0) g/dL Salicylates <1.0 mg/dL Urine Opiates Screen (NotDetected) Ur Oxycodone Screen (NotDetected) Urine Methadone Screen (NotDetected) Ur Propoxyphene Screen (NotDetected) Acetaminophen <10.0 ug/mL Ur Barbiturates Screen (NotDetected) U Tricyclic Antidepress (NotDetected) Ur Phencyclidine Scrn (NotDetected) Ur Amphetamines Screen (NotDetected) U Methamphetamines Scrn (NotDetected) U Benzodiazepines Scrn (NotDetected) Urine Cocaine Screen (NotDetected) U Marijuana (THC) Screen (NotDetected) Serum Alcohol <10 mg/dL 02/27/21 02/27/21 02/27/21 Range/Units 10:47 11:25 11:50 WBC (3.8-10.6) k/uL RBC (4.30-5.90) m/uL Hgb (13.0-17.5) gm/dL Hct (39.0-53.0) % MCV (80.0-100.0) fL MCH (25.0-35.0) pg MCHC (31.0-37.0) g/dL RDW (11.5-15.5) % Plt Count (150-450) k/uL MPV Neutrophils % % Lymphocytes % % Monocytes % % Eosinophils % % Basophils % % Neutrophils # (1.3-7.7) k/uL Lymphocytes # (1.0-4.8) k/uL Monocytes # (0-1.0) k/uL Eosinophils # (0-0.7) k/uL Basophils # (0-0.2) k/uL Sodium (137-145) mmol/L Potassium (3.5-5.1) mmol/L Chloride (98-107) mmol/L Carbon Dioxide (22-30) mmol/L Anion Gap mmol/L BUN (9-20) mg/dL Creatinine (0.66-1.25) mg/dL Est GFR (CKD-EPI)AfAm (>60 ml/min/1.73 sqM) Est GFR (CKD-EPI)NonAf (>60 ml/min/1.73 sqM) Glucose (74-99) mg/dL POC Glucose (mg/dL) (75-99) mg/dL POC Glu Laborer Pipelines ID Lactic Ac Sepsis Rflx Y Plasma Lactic Acid Mo 11.5 H* (0.7-2.0) mmol/L Calcium (8.4-10.2) mg/dL Magnesium (1.6-2.3) mg/dL Total Bilirubin (0.2-1.3) mg/dL AST (17-59) U/L ALT (4-49) U/L Alkaline Phosphatase (38-126) U/L Total Protein (6.3-8.2) g/dL Albumin (3.5-5.0) g/dL Salicylates mg/dL Urine Opiates Screen Not Detected (NotDetected) Ur Oxycodone Screen Not Detected (NotDetected) Urine Methadone Screen Not Detected (NotDetected) Ur Propoxyphene Screen Not Detected (NotDetected) Acetaminophen ug/mL Ur Barbiturates Screen Not Detected (NotDetected) U Tricyclic Antidepress Not Detected (NotDetected) Ur Phencyclidine Scrn Not Detected (NotDetected) Ur Amphetamines Screen Not Detected (NotDetected) U Methamphetamines Scrn Not Detected (NotDetected) U Benzodiazepines Scrn Detected H (NotDetected) Urine Cocaine Screen Not Detected (NotDetected) U Marijuana (THC) Screen Detected H (NotDetected) Serum Alcohol mg/dL 02/27/21 Range/Units 12:17 WBC 14.2 H (3.8-10.6) k/uL RBC 4.46 (4.30-5.90) m/uL Hgb 13.0 (13.0-17.5) gm/dL Hct 38.0 L (39.0-53.0) % MCV 85.2 (80.0-100.0) fL MCH 29.2 (25.0-35.0) pg MCHC 34.3 (31.0-37.0) g/dL RDW 13.0 (11.5-15.5) % Plt Count 148 L (150-450) k/uL MPV 10.0 Neutrophils % 86 % Lymphocytes % 6 % Monocytes % 7 % Eosinophils % 1 % Basophils % 0 % Neutrophils # 12.2 H (1.3-7.7) k/uL Lymphocytes # 0.9 L (1.0-4.8) k/uL Monocytes # 1.0 (0-1.0) k/uL Eosinophils # 0.1 (0-0.7) k/uL Basophils # 0.0 (0-0.2) k/uL Sodium (137-145) mmol/L Potassium (3.5-5.1) mmol/L Chloride (98-107) mmol/L Carbon Dioxide (22-30) mmol/L Anion Gap mmol/L BUN (9-20) mg/dL Creatinine (0.66-1.25) mg/dL Est GFR (CKD-EPI)AfAm (>60 ml/min/1.73 sqM) Est GFR (CKD-EPI)NonAf (>60 ml/min/1.73 sqM) Glucose (74-99) mg/dL POC Glucose (mg/dL) (75-99) mg/dL POC Glu Laborer Pipelines ID Lactic Ac Sepsis Rflx Plasma Lactic Acid Mo (0.7-2.0) mmol/L Calcium (8.4-10.2) mg/dL Magnesium (1.6-2.3) mg/dL Total Bilirubin (0.2-1.3) mg/dL AST (17-59) U/L ALT (4-49) U/L Alkaline Phosphatase (38-126) U/L Total Protein (6.3-8.2) g/dL Albumin (3.5-5.0) g/dL Salicylates mg/dL Urine Opiates Screen (NotDetected) Ur Oxycodone Screen (NotDetected) Urine Methadone Screen (NotDetected) Ur Propoxyphene Screen (NotDetected) Acetaminophen ug/mL Ur Barbiturates Screen (NotDetected) U Tricyclic Antidepress (NotDetected) Ur Phencyclidine Scrn (NotDetected) Ur Amphetamines Screen (NotDetected) U Methamphetamines Scrn (NotDetected) U Benzodiazepines Scrn (NotDetected) Urine Cocaine Screen (NotDetected) U Marijuana (THC) Screen (NotDetected) Serum Alcohol mg/dL - EKG Data -: EKG Interpreted by Me EKG shows normal: sinus rhythm EKG Comments: Sinus rhythm rate of 92. Interval 148 QRS 92 QT/QTC 370/457 right word axis - Radiology Data Radiology results: report reviewed (Image reviewed CT unremarkable initial x-ray unremarkable repeat x-ray after intubation shows and tracheal to be above the jaida in adequate position.), image reviewed Critical Care Time Critical Care Time: Yes Total Critical Care Time: 55 Critical Care Time: Critical care time includes initial presentation with history physical labs x- rays prolonged bedside with the patient discussed with paramedics upon arrival discussion with multiple family members discussion with the main physician discussion with neurology and intensive care. This does not include intubation time. Disposition Clinical Impression: Status epilepticus, Lactic acidosis, Dehydration Disposition: ADMITTED IP TO THIS [facility] Condition: Critical Instructions (If sedation given, give patient instructions): Seizure/Epilepsy Discharge Instructions & Follow-Up Referrals: Davian Nam MD [Primary Care Provider] - 1-2 days
--- NOTE | 2021-02-27 11:29 | CT ---
EXAMINATION TYPE: CT brain wo con DATE OF EXAM: 02/27/2021 COMPARISON: 01/03/2020 INDICATION: Seizure activities DLP: 1094.4 mGycm, Automated exposure control for dose reduction was used. CONTRAST: None CT of the brain is performed utilizing 3 mm thick sections through the posterior fossa and 3 mm thick sections through the remaining calvarium. Study is performed within 24 hours of arrival to the hosp ital. No abnormal hyperdensity is present to suggest an acute intracranial hemorrhage. No mass lesion is evident. No acute infarcts are evident. Ventricles and sulci are appropriate for the patient age. Paranasal sinuses and mastoid air cells within the [id number] are clear. IMPRESSIONS: 1. Normal CT Brain
[2021-02-27 11:34] LABS: Amphetamine Screen,Urine Not Detected (NotDetected); Barbiturate Screen,Urine Not Detected (NotDetected); Benzodiazepines Screen,Urine Detected (NotDetected); Cocaine Screen,Urine Not Detected (NotDetected); Methadone Screen, Urine Not Detected (NotDetected); Opiate Screen,Urine Not Detected (NotDetected); Oxycodone Screen, Urine Not Detected (NotDetected); Phencyclidine Screen,Urine Not Detected (NotDetected); Tricyclic Antidepressant,Urine Not Detected (NotDetected); Urn Cannabinoid Scrn Detected (NotDetected)
[2021-02-27] MEDS ORDERED: SODIUM CHLORIDE 0.9% 2,000 ML IV ONE (11:51)
--- NOTE | 2021-02-27 12:07 | XR ---
EXAMINATION TYPE: XR chest 1V portable DATE OF EXAM: 02/27/2021 COMPARISON: 02/09/2020 HISTORY: Seizure TECHNIQUE: Single frontal view of the chest is obtained. FINDINGS: Examination is limited due to patient rotation and portable technique. No definite new large airspace disease or pneumothorax is seen. Cardiac silhouette is unchanged in size. IMPRESSION: No definite acute process.
[2021-02-27 12:49] LABS: Basophils % (A) 0 %; Eosinophils # (A) 0.1 k/uL (0-0.7); Eosinophils % (A) 1 %; Lymphocytes # (A) 0.9 k/uL (1.0-4.8); Lymphocytes % (A) 6 %; MCH 29.2 pg (25.0-35.0); MCHC 34.3 g/dL (31.0-37.0); MCV 85.2 fL (80.0-100.0); Monocytes % (A) 7 %; Neutrophils # (A) 12.2 k/uL (1.3-7.7); Neutrophils % (A) 86 %; Platelet Count 148 k/uL (150-450); RBC 4.46 m/uL (4.30-5.90); WBC 14.2 k/uL (3.8-10.6)
[2021-02-27] MEDS ORDERED: SODIUM CHLORIDE 0.9% IVPB STA (12:57)
[2021-02-27] MEDS ORDERED: PHENYTOIN SODIUM IVPB STA (12:57)
[2021-02-27] MEDS ORDERED: LACOSAMIDE IV 200 MG in SODIUM CHLORIDE 0.9% 50 ML IVPB STA (13:00)
[2021-02-27] MEDS ORDERED: SUCCINYLCHOLINE CHLORIDE 100 MG/5 ML SYR IV STA (13:50)
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
[2021-02-27] MEDS ORDERED: MIDAZOLAM 1 MG/ML 5 ML VIAL IV STA (13:53)
[2021-02-27] MEDS ORDERED: SUCCINYLCHOLINE CHLORIDE VIAL 200 MG/10 ML VIAL IV STA (13:55)
[2021-02-27] MEDS ORDERED: NALOXONE 0.4 MG/ML 1 ML VIAL IV PRN (14:29)
--- NOTE | 2021-02-27 14:46 | XR ---
EXAMINATION TYPE: XR chest 1V confirm line [facility] DATE OF EXAM: 02/27/2021 COMPARISON: Chest x-ray 02/27/2021 at earlier time HISTORY: Status post intubation TECHNIQUE: Single frontal view of the chest is obtained. FINDINGS: There is been interval placement of an endotracheal tube which is overlying the tracheal a ir column, NG tube is been placed in the distal tip is not included on exam but tube is coursing into the left upper quadrant. There is no evident pneumothorax or pleural effusion. Patient is rotated. C ardiac mediastinal silhouette is not significantly changed accounting for differences in technique, n o evident airspace disease. There are metallic post through the region of the nipples. Bone mineraliz ation is normal. IMPRESSION: No evident complication status post intubation as described
[2021-02-27 15:04] LABS: ABG HCO3 21 mmol/L (21-25); ABG Oxygen Saturation 99.4 % (94-97); ABG PCO2 42 mmHg (35-45); ABG PO2 >400 mmHg (83-108); ABG TCO2 22 mmol/L (19-24); Allen Test Performed? Yes
[2021-02-27] MEDS ORDERED: CHLORHEXIDINE GLUCONATE 15 ML CUP MUCOUS MEM ONE (15:32)
[2021-02-27 15:37] LABS: Glucose,Whole Blood 70 mg/dL (75-99)
[2021-02-27] MEDS: CHLORHEXIDINE GLUCONATE 15 ML CUP MUCOUS MEM SCH (20:26)
[2021-02-27] MEDS ORDERED: DIVALPROEX 250 MG TABLET.DR PO SCH (21:00)
[2021-02-27] MEDS: LACOSAMIDE IV 200 MG in SODIUM CHLORIDE 0.9% 50 ML IVPB SCH (21:22)
[2021-02-27] MEDS: VALPROIC ACID ORAL SOLN 250 MG/5 ML CUP OG-TUBE SCH (21:22)
[2021-02-27 23:58] LABS: Glucose,Whole Blood 92 mg/dL (75-99)
[2021-02-28 04:59] LABS: Basophils % (A) 0 %; Eosinophils # (A) 0.1 k/uL (0-0.7); Eosinophils % (A) 1 %; HGB 12.2 gm/dL (13.0-17.5); Lymphocytes # (A) 1.6 k/uL (1.0-4.8); Lymphocytes % (A) 20 %; MCH 29.1 pg (25.0-35.0); MCHC 33.8 g/dL (31.0-37.0); Monocytes # (A) 0.7 k/uL (0-1.0); Monocytes % (A) 8 %; Neutrophils # (A) 5.7 k/uL (1.3-7.7); Neutrophils % (A) 70 %; Platelet Count 159 k/uL (150-450); RBC 4.19 m/uL (4.30-5.90); RDW 13.1 % (11.5-15.5); WBC 8.1 k/uL (3.8-10.6)
[2021-02-28 05:14] LABS: African American GFR (CKD) >90 (>60 ml/min/1.73 sqM); Anion Gap 6 mmol/L; Blood Urea Nitrogen 8 mg/dL (9-20); Calcium 8.7 mg/dL (8.4-10.2); Carbon Dioxide 23 mmol/L (22-30); Chloride 111 mmol/L (98-107); Glucose 84 mg/dL (74-99); Non-African American GFR(CKD) >90 (>60 ml/min/1.73 sqM); Sodium 140 mmol/L (137-145)
[2021-02-28 05:49] LABS: ABG Base Excess -1.9 mmol/L; ABG HCO3 23 mmol/L (21-25); ABG Oxygen Saturation 99.7 % (94-97); ABG PCO2 40 mmHg (35-45); ABG PH 7.37 (7.35-7.45); ABG PO2 207 mmHg (83-108); ABG TCO2 25 mmol/L (19-24); Allen Test Performed? Yes
[2021-02-28 06:13] LABS: Glucose,Whole Blood 81 mg/dL (75-99)
[2021-02-28] MEDS: CHLORHEXIDINE GLUCONATE 15 ML CUP MUCOUS MEM SCH (07:52)
[2021-02-28] MEDS: PANTOPRAZOLE 40 MG/10 ML VIAL IV SCH (07:52)
[2021-02-28] MEDS: VALPROIC ACID ORAL SOLN 250 MG/5 ML CUP OG-TUBE SCH (07:52)
--- NOTE | 2021-02-28 08:03 | P.HPIM ---
History of Present Illness H&P Date: 02/28/21 Chief Complaint: Status epilepticus This is a history and physical on a 20-year-old white male who came in with status epilepticus. Significant medication has been given to control him and he is now admitted to the ICU due to airway protection. He's had seizure history for several years. History of syphilis which was treated in the remote past. No fever or chills. The patient is now intubated. The patient saw me in about 2 weeks ago requesting medication or assistance with weight gain. No illicit substance abuse noted. Otherwise, the patient has struggled with anxiety and depression in the past Review of Systems ROS unobtainable: due to endotracheal tube Past Medical History Past Medical History: Seizure Disorder Additional Past Medical History / Comment(s): History of treated syphilitic infection-2019 History of Any Multi-Drug Resistant Organisms: None Reported Past Surgical History: Adenoidectomy, Tonsillectomy Additional Past Surgical History / Comment(s): undecended testicle Past Anesthesia/Blood Transfusion Reactions: No Reported Reaction Past Psychological History: No Psychological Hx Reported Smoking Status: Current some day smoker Past Alcohol Use History: Rare Past Drug Use History: None Reported - Past Family History Mother Family Medical History: Hypertension Additional Family Medical History / Comment(s): on mothers side their is an extensive history of colitis, ulcerative colitis, IBS Chrohns Father Family Medical History: Diabetes Mellitus Medications and Allergies Home Medications Medication Instructions Recorded Confirmed Type Sertraline HCl [Zoloft] 100 mg PO DAILY 12/10/20 02/27/21 History Lacosamide [Vimpat] 150 mg PO BID 02/27/21 02/27/21 History Allergies Allergy/AdvReac Type Severity Reaction Status Date / Time diphenhydramine HCl Allergy Unknown-SEE Verified 02/27/21 09:51 [From Benadryl] COMMENTS sumatriptan [From Imitrex] AdvReac seizure Verified 02/27/21 09:51 sumatriptan succinate AdvReac seizure Verified 02/27/21 09:51 [From Imitrex] Physical Exam Vitals: Vital Signs Temp Pulse Resp BP Pulse Ox 02/28/21 07:00 55 L 25 H 107/62 98 02/28/21 06:00 55 L 20 108/60 96 06/24/21 05:00 57 L 26 H 112/62 95 02/28/21 04:00 97.8 F 56 L 20 109/61 96 02/28/21 03:00 59 L 20 109/62 97 02/28/21 02:00 60 20 108/63 95 02/28/21 01:00 59 L 19 108/64 98 02/28/21 00:08 64 21 106/63 97 02/28/21 00:00 97.8 F 67 22 106/62 98 02/27/21 23:00 66 22 103/59 97 02/27/21 22:00 70 19 110/62 97 02/27/21 21:00 70 23 106/57 98 02/27/21 20:00 97.5 F L 72 19 107/63 97 02/27/21 19:00 71 19 103/62 97 02/27/21 18:00 74 20 107/62 97 02/27/21 17:00 71 18 107/62 98 02/27/21 16:00 98.1 F 70 21 122/74 98 02/27/21 15:00 98.1 F 74 25 H 112/64 100 02/27/21 14:58 97.9 F 02/27/21 14:00 66 18 133/75 02/27/21 13:00 77 19 140/74 100 02/27/21 12:30 89 18 122/57 100 02/27/21 12:00 73 20 125/60 100 02/27/21 11:30 75 21 124/54 100 02/27/21 11:16 84 14 121/65 100 02/27/21 11:15 90 18 121/65 100 02/27/21 11:00 117/65 02/27/21 10:45 110/46 100 02/27/21 10:42 90 16 110/46 100 02/27/21 10:30 123/84 02/27/21 10:15 102 H 105/50 02/27/21 10:00 120 H 18 130/49 02/27/21 09:45 135 H 20 165/87 02/27/21 09:39 103 H 15 100 02/27/21 09:25 97.4 F L 110 H 14 121/72 97 Intake and Output 02/27/21 02/28/21 02/28/21 22:59 06:59 14:59 Intake Total 1871.896 951.759 151.565 Output Total 1360 365 45 Balance 511.896 586.759 106.565 Intake: IV 300 800 100 .9 300 800 100 Intake, IV Titration 1571.896 151.759 51.565 Amount Sodium Chloride 0.9% 1, 400 000 ml @ 100 mls/hr IV . Q10H [facility] Rx#:[id number] Sodium Chloride 0.9% 2, 1000 000 ml @ 999 mls/hr IV . Q2H1M [facility] Rx#:[id number] propofoL 1,000 mg In 171.896 151.759 51.565 Empty Bag 1 bag @ Titrate IV .Q0M [facility] Rx#: [id number] Output: Urine 1360 365 45 Other: Voiding Method Indwelling Catheter Indwelling Catheter Weight 69.3 kg - Constitutional General appearance: no acute distress - EENT Eyes: EOMI - Neck Neck: no lymphadenopathy - Respiratory Respiratory: bilateral: CTA - Cardiovascular Rhythm: regular Heart sounds: normal: S1, S2 Abnormal Heart Sounds: no S3 Gallop - Gastrointestinal General gastrointestinal: soft, no tenderness - Integumentary Integumentary: no cellulitis Results CBC & Chem 7: 02/28/21 04:16 02/28/21 04:16 Labs: Abnormal Lab Results - Last 24 Hours (Table) 02/27/21 02/27/21 02/27/21 Range/Units 09:37 10:16 10:47 WBC (3.8-10.6) k/uL RBC (4.30-5.90) m/uL Hgb (13.0-17.5) gm/dL Hct (39.0-53.0) % Plt Count (150-450) k/uL Neutrophils # (1.3-7.7) k/uL Lymphocytes # (1.0-4.8) k/uL ABG pH (7.35-7.45) ABG pO2 (83-108) mmHg ABG Total CO2 (19-24) mmol/L ABG O2 Saturation (94-97) % Potassium 5.4 H (3.5-5.1) mmol/L Chloride (98-107) mmol/L Carbon Dioxide 13 L (22-30) mmol/L BUN (9-20) mg/dL Creatinine (0.66-1.25) mg/dL Glucose 169 H (74-99) mg/dL POC Glucose (mg/dL) 183 H (75-99) mg/dL Plasma Lactic Acid Mo (0.7-2.0) mmol/L Alkaline Phosphatase 34 L (38-126) U/L U Benzodiazepines Scrn Detected H (NotDetected) U Marijuana (THC) Screen Detected H (NotDetected) 02/27/21 02/27/21 02/27/21 Range/Units 11:25 12:17 14:52 WBC 14.2 H (3.8-10.6) k/uL RBC (4.30-5.90) m/uL Hgb (13.0-17.5) gm/dL Hct 38.0 L (39.0-53.0) % Plt Count 148 L (150-450) k/uL Neutrophils # 12.2 H (1.3-7.7) k/uL Lymphocytes # 0.9 L (1.0-4.8) k/uL ABG pH 7.30 L (7.35-7.45) ABG pO2 >400 H (83-108) mmHg ABG Total CO2 (19-24) mmol/L ABG O2 Saturation 99.4 H (94-97) % Potassium (3.5-5.1) mmol/L Chloride (98-107) mmol/L Carbon Dioxide (22-30) mmol/L BUN (9-20) mg/dL Creatinine (0.66-1.25) mg/dL Glucose (74-99) mg/dL POC Glucose (mg/dL) (75-99) mg/dL Plasma Lactic Acid Mo 11.5 H* (0.7-2.0) mmol/L Alkaline Phosphatase (38-126) U/L U Benzodiazepines Scrn (NotDetected) U Marijuana (THC) Screen (NotDetected) 02/27/21 02/28/21 02/28/21 Range/Units 15:35 04:16 04:16 WBC (3.8-10.6) k/uL RBC 4.19 L (4.30-5.90) m/uL Hgb 12.2 L (13.0-17.5) gm/dL Hct 36.0 L (39.0-53.0) % Plt Count (150-450) k/uL Neutrophils # (1.3-7.7) k/uL Lymphocytes # (1.0-4.8) k/uL ABG pH (7.35-7.45) ABG pO2 (83-108) mmHg ABG Total CO2 (19-24) mmol/L ABG O2 Saturation (94-97) % Potassium (3.5-5.1) mmol/L Chloride 111 H (98-107) mmol/L Carbon Dioxide (22-30) mmol/L BUN 8 L (9-20) mg/dL Creatinine 0.59 L (0.66-1.25) mg/dL Glucose (74-99) mg/dL POC Glucose (mg/dL) 70 L (75-99) mg/dL Plasma Lactic Acid Mo (0.7-2.0) mmol/L Alkaline Phosphatase (38-126) U/L U Benzodiazepines Scrn (NotDetected) U Marijuana (THC) Screen (NotDetected) 02/28/21 Range/Units 05:45 WBC (3.8-10.6) k/uL RBC (4.30-5.90) m/uL Hgb (13.0-17.5) gm/dL Hct (39.0-53.0) % Plt Count (150-450) k/uL Neutrophils # (1.3-7.7) k/uL Lymphocytes # (1.0-4.8) k/uL ABG pH (7.35-7.45) ABG pO2 207 H (83-108) mmHg ABG Total CO2 25 H (19-24) mmol/L ABG O2 Saturation 99.7 H (94-97) % Potassium (3.5-5.1) mmol/L Chloride (98-107) mmol/L Carbon Dioxide (22-30) mmol/L BUN (9-20) mg/dL Creatinine (0.66-1.25) mg/dL Glucose (74-99) mg/dL POC Glucose (mg/dL) (75-99) mg/dL Plasma Lactic Acid Mo (0.7-2.0) mmol/L Alkaline Phosphatase (38-126) U/L U Benzodiazepines Scrn (NotDetected) U Marijuana (THC) Screen (NotDetected) Thrombosis Risk Factor Assmnt - Choose All That Apply Each Factor Represents 1 point: Medical pt on bed rest Thrombosis Risk Factor Assessment Total Risk Factor Score: 1 Thrombosis Risk Factor Assessment Level: Low Risk Assessment and Plan (1) Status epilepticus Current Visit: Yes Status: Acute Code(s): G40.901 - EPILEPSY, UNSP, NOT INTRACTABLE, WITH STATUS EPILEPTICUS SNOMED Code(s): 570642850 Plan: Continue current regimen of treatment. Appreciate neurology input. Check CBC and CMP in a.m. See orders otherwise.
[2021-02-28] MEDS: LACOSAMIDE IV 200 MG in SODIUM CHLORIDE 0.9% 50 ML IVPB SCH ×2 (08:16→21:06)
--- NOTE | 2021-02-28 09:16 | XR ---
EXAMINATION TYPE: XR chest 1V portable DATE OF EXAM: 02/28/2021 COMPARISON: Chest x-ray 02/27/2021 HISTORY: Intubated TECHNIQUE: frontal view of the chest is obtained 2 images. FINDINGS: Endotracheal tube and NG tube appear stable. Patient is rotated. No evident pneumothorax o r pleural effusion. Cardiac mediastinal silhouette is stable. There is a spinal curvature. There are overlying artifacts. No definite airspace disease, consider PA and lateral chest x-ray follow-up to e xclude retrocardiac density when stable. IMPRESSION: No acute process.
[2021-02-28] MEDS ORDERED: DEXTROSE 50% SYRINGE 50 ML IVP STA (11:46)
[2021-02-28 11:51] LABS: Glucose,Whole Blood 62 mg/dL (75-99)
[2021-02-28 12:07] LABS: Glucose,Whole Blood 92 mg/dL (75-99)
--- NOTE | 2021-02-28 13:14 | P.CNPUL ---
History of Present Illness Consult date: 02/28/21 Requesting physician: Davian Nam Reason for consult: other (Status epilepticus) Chief complaint: Recurrent seizure History of present illness: This is a 20-year-old white male with history of epilepsy since 2012, patient presented to the ER on 02/27/2021, and has been experiencing recurrent seizures his initial one was 2 AM in the morning witnessed by his boyfriend, and he was having tonic clonic activity Of his upper extremities. Apparently the seizure lasted about 2 minutes. Seen in the ER and he was discharged home. Apparently the patient was recently switched over to Vimpat from his previous medication. Patient had another seizure where in the EMS was called, and his seizure was witnessed by EMS showing tonic clonic portioning patient received Versed, and he remained post ictal with profound agitation. Sedation was given. Patient was brought into the ER, given Versed by programmer developer and Ativan in the emergency room. He was also given Keppra and he was given propofol. Patient was given propofol boluses and he was placed on a drip. I was notified about this patient that he was on propofol drip, but he was not intubated, I did recommend intubation if the patient is to need to be on propofol. Patient was intubated by the ER physician, and transferred to the ICU. I saw him this morning, patient seems to be gagging continuously on the endotracheal tube. No seizure activity witnessed overnight. Hence I recommended extubating the patient early this morning. According to the neurologist note, patient has been tried on Keppra in the past, but could not tolerate. Other medication is oxtellar. Patient was loaded with Vimpat by the neurologist chronic disease manager. He was also loaded with Dilantin and started maintenance of Depakote 250 mg every 12 hours. Again no seizure activity overnight, and I was able to extubate the patient early this morning Review of Systems ROS unobtainable: due to endotracheal tube Past Medical History Past Medical History: Seizure Disorder Additional Past Medical History / Comment(s): History of treated syphilitic infection-2019 History of Any Multi-Drug Resistant Organisms: None Reported Past Surgical History: Adenoidectomy, Tonsillectomy Additional Past Surgical History / Comment(s): undecended testicle Past Anesthesia/Blood Transfusion Reactions: No Reported Reaction Past Psychological History: No Psychological Hx Reported Smoking Status: Current some day smoker Past Alcohol Use History: Rare Past Drug Use History: None Reported - Past Family History Mother Family Medical History: Hypertension Additional Family Medical History / Comment(s): on mothers side their is an extensive history of colitis, ulcerative colitis, IBS Chrohns Father Family Medical History: Diabetes Mellitus Medications and Allergies Home Medications Medication Instructions Recorded Confirmed Type Sertraline HCl [Zoloft] 100 mg PO DAILY 12/10/20 02/27/21 History Lacosamide [Vimpat] 150 mg PO BID 02/27/21 02/27/21 History Allergies Allergy/AdvReac Type Severity Reaction Status Date / Time diphenhydramine HCl Allergy Unknown-SEE Verified 02/27/21 09:51 [From Benadryl] COMMENTS sumatriptan [From Imitrex] AdvReac seizure Verified 02/27/21 09:51 sumatriptan succinate AdvReac seizure Verified 02/27/21 09:51 [From Imitrex] Physical Exam Vitals: Vital Signs Temp Pulse Resp BP Pulse Ox 02/28/21 12:00 98.2 F 77 15 119/58 92 L 02/28/21 11:00 71 32 H 103/56 96 02/28/21 10:00 66 18 113/62 94 L 02/28/21 09:00 86 12 142/85 98 02/28/21 08:00 97.6 F 50 L 21 133/85 100 02/28/21 07:00 55 L 25 H 107/62 98 02/28/21 06:00 55 L 20 108/60 96 02/28/21 05:00 57 L 26 H 112/62 95 02/28/21 04:00 97.8 F 56 L 20 109/61 96 02/28/21 03:00 59 L 20 109/62 97 02/28/21 02:00 60 20 108/63 95 02/28/21 01:00 59 L 19 108/64 98 02/28/21 00:08 64 21 106/63 97 02/28/21 00:00 97.8 F 67 22 106/62 98 02/27/21 23:00 66 22 103/59 97 02/27/21 22:00 70 19 110/62 97 02/27/21 21:00 70 23 106/57 98 02/27/21 20:00 97.5 F L 72 19 107/63 97 02/27/21 19:00 71 19 103/62 97 02/27/21 18:00 74 20 107/62 97 02/27/21 17:00 71 18 107/62 98 02/27/21 16:00 98.1 F 70 21 122/74 98 02/27/21 15:00 98.1 F 74 25 H 112/64 100 02/27/21 14:58 97.9 F 02/27/21 14:00 66 18 133/75 02/27/21 13:00 77 19 140/74 100 Intake and Output 02/27/21 02/28/21 02/28/21 22:59 06:59 14:59 Intake Total 1871.896 951.759 412.965 Output Total 1360 365 195 Balance 511.896 586.759 217.965 Intake: IV 300 800 300 .9 300 800 300 Intake, IV Titration 1571.896 151.759 112.965 Amount Lacosamide IV 200 mg In 50 Sodium Chloride 0.9% 50 ml @ 100 mls/hr IVPB BID [facility] Rx#:[id number] Sodium Chloride 0.9% 1, 400 000 ml @ 100 mls/hr IV . Q10H [facility] Rx#:[id number] Sodium Chloride 0.9% 2, 1000 000 ml @ 999 mls/hr IV . Q2H1M [facility] Rx#:[id number] propofoL 1,000 mg In 171.896 151.759 62.965 Empty Bag 1 bag @ Titrate IV .Q0M [facility] Rx#: [id number] Output: Urine 1360 365 195 Other: Voiding Method Indwelling Catheter Indwelling Catheter Indwelling Catheter Weight 69.3 kg Physical Exam: Revealed 20-year-old white male intubated, mechanically ventilated, arousable, follows simple instructions, but continuously gagging on the endotracheal tube, off propofol this morning. Head: Atraumatic, normocephalic. HEENT:[Neck is supple.] [No neck masses.] [No thyromegaly.] [No JVD.] The tracheal tube and orogastric tubes are intact. Moist mucous membranes. Chest: Pectus incavatum noted. [Clear throughout, no crackles, no rhonchi, no wheezes.] Cardiac Exam: [Normal S1 and S2, no S3 gallop, no murmur.] Abdomen: [Soft, nontender, no megaly, no rebound, no guarding, normal bowel sounds.] Extremities: [No clubbing, no edema, no cyanosis.] Pulses bilaterally Neurological Exam: Could not fully assess, patient follows simple instructions, he is noted to continuously gag on the endotracheal tube. Psychiatric: Could not be assessed. Skin: No rashes. Results - Laboratory Findings CBC and BMP: 02/28/21 04:16 02/28/21 04:16 ABG ABG pH 7.37 (7.35-7.45) 02/28/21 05:45 ABG pCO2 40 mmHg (35-45) 02/28/21 05:45 ABG pO2 207 mmHg (83-108) H 02/28/21 05:45 ABG O2 Saturation 99.7 % (94-97) H 02/28/21 05:45 Abnormal lab findings: Abnormal Labs 02/27/21 02/27/21 02/27/21 09:37 10:16 10:47 WBC RBC Hgb Hct Plt Count Neutrophils # Lymphocytes # ABG pH ABG pO2 ABG Total CO2 ABG O2 Saturation Potassium 5.4 H Chloride Carbon Dioxide 13 L BUN Creatinine Glucose 169 H POC Glucose (mg/dL) 183 H Plasma Lactic Acid Mo Alkaline Phosphatase 34 L U Benzodiazepines Scrn Detected H U Marijuana (THC) Screen Detected H 02/27/21 02/27/21 02/27/21 11:25 12:17 14:52 WBC 14.2 H RBC Hgb Hct 38.0 L Plt Count 148 L Neutrophils # 12.2 H Lymphocytes # 0.9 L ABG pH 7.30 L ABG pO2 >400 H ABG Total CO2 ABG O2 Saturation 99.4 H Potassium Chloride Carbon Dioxide BUN Creatinine Glucose POC Glucose (mg/dL) Plasma Lactic Acid Mo 11.5 H* Alkaline Phosphatase U Benzodiazepines Scrn U Marijuana (THC) Screen 02/27/21 02/28/21 02/28/21 15:35 04:16 04:16 WBC RBC 4.19 L Hgb 12.2 L Hct 36.0 L Plt Count Neutrophils # Lymphocytes # ABG pH ABG pO2 ABG Total CO2 ABG O2 Saturation Potassium Chloride 111 H Carbon Dioxide BUN 8 L Creatinine 0.59 L Glucose POC Glucose (mg/dL) 70 L Plasma Lactic Acid Mo Alkaline Phosphatase U Benzodiazepines Scrn U Marijuana (THC) Screen 02/28/21 02/28/21 05:45 11:40 WBC RBC Hgb Hct Plt Count Neutrophils # Lymphocytes # ABG pH ABG pO2 207 H ABG Total CO2 25 H ABG O2 Saturation 99.7 H Potassium Chloride Carbon Dioxide BUN Creatinine Glucose POC Glucose (mg/dL) 62 L Plasma Lactic Acid Mo Alkaline Phosphatase U Benzodiazepines Scrn U Marijuana (THC) Screen - Diagnostic Findings Chest x-ray: image reviewed (Chest x-ray showed no acute process.) Additional studies: CT of the brain showed normal CT. Assessment and Plan Assessment: Impression: 1 status epilepticus, requiring intubation and mechanical ventilation. Mostly to protect his airways. 2 history of epilepsy 3 history of marijuana use. Recommendation: Patient was extubated uneventfully. Continue present seizure medications including Vimpat, Depakote, Use Ativan when necessary if needed. Continue seizure precautions Continue to monitor in the ICU. GI and DVT prophylaxis. Will follow while in the ICU. Time with Patient: Greater than 30
--- NOTE | 2021-02-28 16:25 | P.PN ---
Subjective Progress Note Date: 02/28/21 The patient was seen at bedside. Per the patient nurse the patient was intubated the in the ED prior to coming to the ICU and the overnight he was on propofol 75mcg/kg/min. Per the patient nurse overnight, he did not have any clinical seizures. Upon seeing the patient in the afternoon the patient was extubated and the sedation and the was stopped and the patient's mother was at bedside and she felt like he is doing drastically better. Objective - Vital Signs Vital signs: Vital Signs Temp 98.2 F 02/28/21 12:00 Pulse 71 02/28/21 15:00 Resp 35 H 02/28/21 15:00 BP 129/68 02/28/21 15:00 Pulse Ox 92 L 02/28/21 12:00 Intake & Output 02/27/21 02/28/21 02/28/21 18:59 06:59 18:59 Intake Total 9643.833 6714.000 1252.965 Output Total 885 840 595 Balance 515.000 660.000 657.965 Weight 66.678 kg 69.3 kg Intake: IV 1100 900 .9 1100 900 Intake, IV Titration 1400.000 400.000 112.965 Amount Lacosamide IV 200 mg In 50 Sodium Chloride 0.9% 50 ml @ 100 mls/hr IVPB BID [facility] Rx#:[id number] Sodium Chloride 0.9% 1, 300 100 000 ml @ 100 mls/hr IV . Q10H [facility] Rx#:[id number] Sodium Chloride 0.9% 2, 1000 000 ml @ 999 mls/hr IV . Q2H1M [facility] Rx#:[id number] propofoL 1,000 mg In 100.000 300.000 62.965 Empty Bag 1 bag @ Titrate IV .Q0M [facility] Rx#: [id number] Oral 240 Output: Urine 885 840 595 Other: Voiding Method Indwelling Catheter Indwelling Catheter Toilet # Voids 1 # Bowel Movements 1 - Exam GENERAL: The patient is lying in bed and is not in acute distress. CHEST: Pes Cavus. NEUROLOGICAL: Higher mental function: The patient is awake, alert, oriented to self, place and time. Patient is following commands. No aphasia and no neglect. Cranial nerves: The pupils are round, equal and reactive to light and accommodation. Visual gonzalez are full to confrontation throughout. Extraocular movement is intact no nystagmus is noted. Facial sensation is normal to touch throughout. The facial strength is normal throughout. Hearing is normal bilaterally to hand rub. Tongue is midline and moved [id number] without any difficulty. No dysarthria is noted. Shoulder shrug is normal bilaterally. Motor: Gait is deferred. The strength is 5 over 5 throughout. Normal tone and bulk. Cerebellum: Normal finger to nose heel to chin bilaterally. Sensation: Sensation is normal to touch throughout. Reflexes (right/left): 2+ throughout. Plantars are downgoing bilaterally. - Labs CBC & Chem 7: 02/28/21 04:16 02/28/21 04:16 Labs: Abnormal Lab Results - Last 24 Hours (Table) 02/28/21 02/28/21 02/28/21 Range/Units 04:16 04:16 05:45 RBC 4.19 L (4.30-5.90) m/uL Hgb 12.2 L (13.0-17.5) gm/dL Hct 36.0 L (39.0-53.0) % ABG pO2 207 H (83-108) mmHg ABG Total CO2 25 H (19-24) mmol/L ABG O2 Saturation 99.7 H (94-97) % Chloride 111 H (98-107) mmol/L BUN 8 L (9-20) mg/dL Creatinine 0.59 L (0.66-1.25) mg/dL POC Glucose (mg/dL) (75-99) mg/dL 02/28/21 Range/Units 11:40 RBC (4.30-5.90) m/uL Hgb (13.0-17.5) gm/dL Hct (39.0-53.0) % ABG pO2 (83-108) mmHg ABG Total CO2 (19-24) mmol/L ABG O2 Saturation (94-97) % Chloride (98-107) mmol/L BUN (9-20) mg/dL Creatinine (0.66-1.25) mg/dL POC Glucose (mg/dL) 62 L (75-99) mg/dL Assessment and Plan Assessment: * Clinical Status epilepticus---resolved (Seizure possibly due to undermedicated) * History of epilepsy since 2012 (could not tolerate Keppra and was stopped off Oxtellar in the past one week) * 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 Continue Depakote 250 mg every 12 hours (Depakote will help increase eating and mood disorder). Seizure pads and seizure percussion was placed. Continue neuro checks. Preliminary EEG. Normal. There are no focal slowing, epileptiform discharges or seizure on the EEG. If he has any further clinical seizure please notify neurology team. Will defer the rest of medical management to the primary team and ICU team. The patient will be attempting to follow-up with [facility] epilepsy team as outpatient. Will attempt to coordinate a closer appointment with Dr. Ga. We'll try to attempt to get a prolonged EEG as an outpatient. The patient was notified her [place] DMV law, he is to avoid driving for 6 month until seizure-free. To avoid the [place], avoid using heavy machinery and avoid swimming unassisted. If the patient continues to be seizure-free by tomorrow and then the is clear from a neurological standpoint. The plan is discussed with the patient's mother (Nelida) who is at bedside. Fer Berumen MD Neuro-Hospitalist Time with Patient: Less than 30
[2021-02-28 16:50] LABS: Glucose,Whole Blood 75 mg/dL (75-99)
--- NOTE | 2021-02-28 17:41 | EEG ---
ELECTROENCEPHALOGRAM REPORT DATE OF SERVICE: 02/28/2021. CLINICAL HISTORY: This is a 20-year-old gentleman with history of epilepsy who presented to the hospital because of recurrent seizures. The video EEG is obtained to evaluate for seizure epileptiform activity. RELEVANT MEDICATIONS: The patient is on Vimpat, Depakote, and received the Keppra as well as Ativan. EEG TYPE: A routine 21 channel EEG is performed with video using the 10/20 electrode placement system. DESCRIPTION: During the awake state, the background consists of 10-12 hertz activity that is well modulated and well sustained. There is no physiological sleep architecture seen. There is no focal slowing. Interictal ictal and ictal is none. ACTIVATION PROCEDURE: Photic stimulation did not evoke a posterior driving response. There are no abnormality during the photic stimulation. Hyperventilation is not performed. CLINICAL INTERPRETATION: This is a normal routine EEG. There are no focal slowing, epileptiform discharge or seizure on the EEG. Clinical correlation is recommended. RECOMMENDATION: Recommend prolonged EEG and this can be considered as an outpatient. MMEVE / SCARLETTN: [id number] / DARION
[2021-02-28] MEDS ORDERED: LORazepam 0.5 MG TAB PO PRN (18:06)
[2021-02-28] MEDS: DIVALPROEX 250 MG TABLET.DR PO SCH (20:33)
[2021-03-01 05:06] LABS: HCT 34.1 % (39.0-53.0); HGB 12.1 gm/dL (13.0-17.5); MCH 30.3 pg (25.0-35.0); MCHC 35.5 g/dL (31.0-37.0); MCV 85.3 fL (80.0-100.0); Platelet Count 146 k/uL (150-450); RDW 13.1 % (11.5-15.5); WBC 6.4 k/uL (3.8-10.6)
[2021-03-01 05:18] LABS: Carbon Dioxide 26 mmol/L (22-30); Chloride 109 mmol/L (98-107); Glucose 79 mg/dL (74-99); Potassium 3.7 mmol/L (3.5-5.1); Sodium 140 mmol/L (137-145)
[2021-03-01 05:19] LABS: ALT 13 U/L (4-49); AST 27 U/L (17-59); African American GFR (CKD) >90 (>60 ml/min/1.73 sqM); Albumin 3.3 g/dL (3.5-5.0); Alkaline Phosphatase 34 U/L (38-126); Anion Gap 5 mmol/L; Blood Urea Nitrogen 6 mg/dL (9-20); Calcium 8.6 mg/dL (8.4-10.2); Non-African American GFR(CKD) >90 (>60 ml/min/1.73 sqM); Total Bilirubin 0.7 mg/dL (0.2-1.3); Total Protein 5.6 g/dL (6.3-8.2)
--- NOTE | 2021-03-01 08:03 | P.DS ---
Providers Date of admission: 02/27/21 14:56 Attending physician: Davian Nam Consults: 02/27/21 13:33 Consult Physician Stat Consulting Provider: Fer Berumen Consult Reason/Comments: status epilepticus Do you want consulting provider notified?: Already Contacted 02/27/21 14:24 Consult Physician Stat Consulting Provider: Karyna Rivera Consult Reason/Comments: ICU care for status epilepticus and propofol drip Do you want consulting provider notified?: Already Contacted 02/28/21 20:23 Consult Physician Urgent Consulting Provider: Brown Aguayo Consult Reason/Comments: Pt told his mother he wanted to hurt himself. Do you want consulting provider notified?: Yes, Notify in am Primary care physician: Davian Nam - Discharge Diagnosis(es) (1) Status epilepticus Current Visit: Yes Status: Acute Hospital Course: This discharge summary 18-year-old white male essentially admitted for status epilepticus. He was stabilized after being given Ativan and propofol and intubated temporarily. Neurology was consulted and started Depakote. The patient will also continue his Vimpat. The patient is now lucid without dif ficulty and understands his restrictions. The patient will follow-up in about 3 days or so. Patient Condition at Discharge: Critical Plan - Discharge Summary Discharge Rx Participant: No New Discharge Prescriptions: New Divalproex [Depakote] 250 mg PO BID #60 tablet. Continue Lacosamide [Vimpat] 150 mg PO BID Sertraline HCl [Zoloft] 100 mg PO DAILY Discharge Medication List Sertraline HCl [Zoloft] 100 mg PO DAILY 12/10/20 [History] Lacosamide [Vimpat] 150 mg PO BID 02/27/21 [History] Divalproex [Depakote] 250 mg PO BID #60 tablet. 03/01/21 [Rx] Follow up Appointment(s)/Referral(s): Davian Nam MD [Primary Care Provider] - 1-2 days Patient Instructions/Handouts: Seizure/Epilepsy Discharge Instructions & Follow-Up Discharge Disposition: HOME SELF-CARE
[2021-03-01] MEDS: PANTOPRAZOLE 40 MG/10 ML VIAL IV SCH (08:28)
[2021-03-01] MEDS: DIVALPROEX 250 MG TABLET.DR PO SCH (08:28)
--- NOTE | 2021-03-01 08:44 | XR ---
EXAMINATION TYPE: XR chest 1V portable DATE OF EXAM: 03/01/2021 COMPARISON: Prior chest x-ray 02/28/2021 HISTORY: Extubated, abnormal chest x-ray TECHNIQUE: Single frontal view of the chest is obtained. FINDINGS: There is been interval removal of endotracheal tube and NG tube. Underlying pectus deformi ty is present. There are metallic post through the region of the nipples. No evident pneumothorax or pleural effusion. Cardiac mediastinal silhouette within normal limits. There is mild spinal curvature . IMPRESSION: Interval extubation, no acute cardiopulmonary disease
[2021-03-01] MEDS ORDERED: SERTRALINE 100 MG TAB PO SCH (09:00)
[2021-03-01] MEDS: LACOSAMIDE IV 200 MG in SODIUM CHLORIDE 0.9% 50 ML IVPB SCH (09:03)
[2021-03-01 09:39] VITALS: BP 117/62; TEMP 98.2
[2021-03-01 10:20] VITALS: PULSE 71; RESP 24
--- NOTE | 2021-03-01 12:13 | P.PN ---
Subjective Progress Note Date: 03/01/21 Principal diagnosis: Status epilepticus This is a 20-year-old white male with history of epilepsy since 2012, patient presented to the ER on 02/27/2021, and has been experiencing recurrent seizures his initial one was 2 AM in the morning witnessed by his boyfriend, and he was having tonic clonic activity Of his upper extremities. Apparently the seizure lasted about 2 minutes. Seen in the ER and he was discharged home. Apparently the patient was recently switched over to Vimpat from his previous medication. Patient had another seizure where in the EMS was called, and his seizure was witnessed by EMS showing tonic clonic portioning patient received Versed, and he remained post ictal with profound agitation. Sedation was given. Patient was brought into the ER, given Versed by nerve specialist and Ativan in the emergency room. He was also given Keppra and he was given propofol. Patient was given propofol boluses and he was placed on a drip. I was notified about this patient that he was on propofol drip, but he was not intubated, I did recommend intubation if the patient is to need to be on propofol. Patient was intubated by the ER physician, and transferred to the ICU. I saw him this morning, patient seems to be gagging continuously on the endotracheal tube. No seizure activity witnessed overnight. Hence I recommended extubating the patient early this morning. According to the neurologist note, patient has been tried on Keppra in the past, but could not tolerate. Other medication is oxtellar. Patient was loaded with Vimpat by the neurologist lunchroom monitor. He was also loaded with Dilantin and started maintenance of Depakote 250 mg every 12 hours. Again no seizure activity overnight, and I was able to extubate the patient early this morning Reevaluated today on 03/01/2021, patient tolerated extubation well, no seizure activity since his admission. Patient was extubated yesterday, and clinically from our perspective is doing well, could be discharged to a regular medical floor, however my understanding is the patient made some threatening remarks to his mother that he may harm himself. And he was seen by psychiatry were in he would be transferred to the psychiatric floor today. From our perspective patient is cleared to leave the ICU. He was also cleared by neurology and recommended maintenance seizure medications Objective - Vital Signs Vital signs: Vital Signs Temp 98.2 F 03/01/21 08:00 Pulse 71 03/01/21 10:00 Resp 24 03/01/21 10:00 BP 117/62 03/01/21 08:00 Pulse Ox 94 L 03/01/21 10:00 Intake & Output 02/28/21 03/01/21 03/01/21 18:59 06:59 18:59 Intake Total 2344.408 9169 Output Total 595 Balance 079.979 1087 Weight 70.4 kg Intake: IV 1200 1000 .9 1200 1000 Intake, IV Titration 112.965 Amount Lacosamide IV 200 mg In 50 Sodium Chloride 0.9% 50 ml @ 100 mls/hr IVPB BID DE Rx#:[id number] propofoL 1,000 mg In 62.965 Empty Bag 1 bag @ Titrate IV .Q0M DE Rx#: [id number] Oral 240 Output: Urine 595 Other: Voiding Method Toilet Toilet Toilet # Voids 1 0 0 # Bowel Movements 1 - Exam Physical Exam: Revealed a 20-year-old white male in no distress. Head: Atraumatic normocephalic. HEENT:[Neck is supple.] [No neck masses.] [No thyromegaly.] [No JVD.] Chest: [Clear throughout, no crackles, no rhonchi, no wheezes.] Pectus incavatum Cardiac Exam: [Normal S1 and S2, no S3 gallop, no murmur.] Abdomen: [Soft, nontender, no megaly, no rebound, no guarding, normal bowel sounds.] Extremities: [No clubbing, no edema, no cyanosis.] Neurological Exam: [No focal neurologic deficit.] Alert and oriented 3. Psychiatric: Refer to psychiatric consultation. - Labs CBC & Chem 7: 03/01/21 04:49 03/01/21 04:49 Labs: Abnormal Lab Results - Last 24 Hours (Table) 03/01/21 03/01/21 Range/Units 04:49 04:49 RBC 4.00 L (4.30-5.90) m/uL Hgb 12.1 L (13.0-17.5) gm/dL Hct 34.1 L (39.0-53.0) % Plt Count 146 L (150-450) k/uL Chloride 109 H (98-107) mmol/L BUN 6 L (9-20) mg/dL Creatinine 0.58 L (0.66-1.25) mg/dL Alkaline Phosphatase 34 L (38-126) U/L Total Protein 5.6 L (6.3-8.2) g/dL Albumin 3.3 L (3.5-5.0) g/dL Assessment and Plan Assessment: Impression: 1 status epilepticus, requiring intubation and mechanical ventilation. Extubated yesterday on 02/28 and tolerated extubation well. 2 history of epilepsy 3 history of marijuana use. Recommendation: Continue present seizure medications as per neurology on the case. Continue seizure precautions Clear to transfer out of ICU. Will follow as needed. Time with Patient: Less than 30
--- NOTE | 2021-03-01 13:12 | P.PN ---
Subjective Progress Note Date: 03/01/21 Patient was seen at bedside and the per the patient nurse the patient has not had any further seizure-like activity. Yesterday the it seems that the patient and his mother got into a verbal arguments and the he notified that the patient's mother that he wanted to her himself. As a result psychiatry was consulted. Upon seeing the patient today he stated that he did not have any thoughts or plans of hurting himself or others he just felt the lobe upsets by his mother since she wanted that to go home. Objective - Vital Signs Vital signs: Vital Signs Temp 98.2 F 03/01/21 08:00 Pulse 71 03/01/21 10:00 Resp 24 03/01/21 10:00 BP 117/62 03/01/21 08:00 Pulse Ox 94 L 03/01/21 10:00 Intake & Output 02/28/21 03/01/21 03/01/21 18:59 06:59 18:59 Intake Total 0667.084 9892 Output Total 595 Balance 229.695 7982 Weight 70.4 kg Intake: IV 1200 1000 .9 1200 1000 Intake, IV Titration 112.965 Amount Lacosamide IV 200 mg In 50 Sodium Chloride 0.9% 50 ml @ 100 mls/hr IVPB BID DE Rx#:[id number] propofoL 1,000 mg In 62.965 Empty Bag 1 bag @ Titrate IV .Q0M DE Rx#: [id number] Oral 240 Output: Urine 595 Other: Voiding Method Toilet Toilet Toilet # Voids 1 0 0 # Bowel Movements 1 - Exam GENERAL: The patient is lying in bed and is not in acute distress. CHEST: Pes Cavus. NEUROLOGICAL: Higher mental function: The patient is awake, alert, oriented to self, place and time. Patient is following commands. No aphasia and no neglect. Cranial nerves: The pupils are round, equal and reactive to light and accommodation. Visual gonzalez are full to confrontation throughout. Extraocular movement is intact no nystagmus is noted. Facial sensation is normal to touch throughout. The facial strength is normal throughout. Hearing is normal bilaterally to hand rub. Tongue is midline and moved [id number] without any difficulty. No dysarthria is noted. Shoulder shrug is normal bilaterally. Motor: Gait is deferred. The strength is 5 over 5 throughout. Normal tone and bulk. Cerebellum: Normal finger to nose heel to chin bilaterally. Sensation: Sensation is normal to touch throughout. Reflexes (right/left): 2+ throughout. Plantars are downgoing bilaterally. WORK-UP: EE02/28/2021: Normal. There are no focal slowing, epileptiform discharges or seizure on the EEG. - Labs CBC & Chem 7: 03/01/21 04:49 03/01/21 04:49 Labs: Abnormal Lab Results - Last 24 Hours (Table) 03/01/21 03/01/21 Range/Units 04:49 04:49 RBC 4.00 L (4.30-5.90) m/uL Hgb 12.1 L (13.0-17.5) gm/dL Hct 34.1 L (39.0-53.0) % Plt Count 146 L (150-450) k/uL Chloride 109 H (98-107) mmol/L BUN 6 L (9-20) mg/dL Creatinine 0.58 L (0.66-1.25) mg/dL Alkaline Phosphatase 34 L (38-126) U/L Total Protein 5.6 L (6.3-8.2) g/dL Albumin 3.3 L (3.5-5.0) g/dL Assessment and Plan Assessment: * Clinical Status epilepticus---resolved (Seizure possibly due to undermedica valerie) * History of epilepsy since 2012 (could not tolerate Keppra and was stopped off Oxtellar in the past one week) * 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 Continue Depakote 250 mg every 12 hours (Depakote will help increase eating and mood disorder). Psychiatry is consulted because of threat per mother that he stated "he wanted to hurt himself". Was notified by ICU nurse he was cleared by Psychiatry. Will defer the rest of medical management to the primary team and ICU team. He will be attempting to follow-up with [facility] epilepsy team as outpatient (with Dr. Ga). Per technical communication teacher info was send over. We'll try to attempt to get a prolonged EEG as an outpatient (I placed a script of 2 1/2 hours EEG as outpatient). The patient was notified her [place] DMV law, he is to avoid driving for 6 month until seizure-free. To avoid the [place], avoid using heavy machinery and avoid swimming unassisted. He is clear from a neurological standpoint. The plan is discussed with the patient's mother (Nelida) who is at bedside. Fer Berumen MD Neuro-Hospitalist Time with Patient: Less than 30
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
== END 2021-03-01 12:33 | disposition home or self-care (01) | DRG 101 ==
LOC: EC 09:23 → 2SICU 14:56
PROVIDERS: ADMIT Family Medicine; ATTEND Family Medicine
PROC: 5A1945Z Respiratory Ventilation, 24-96 Consecutive Hours (ICD-10-PCS; principal; 2021-02-27)
PROC: 0BH17EZ Insertion of Endotracheal Airway into Trachea, Via Natural or Artificial Opening (ICD-10-PCS; 2021-02-27)
DX: G40.401 Other generalized epilepsy and epileptic syndromes, not intractable, with status epilepticus (principal); E87.2 Acidosis; R25.3 Fasciculation; E86.0 Dehydration; Q66.70 Congenital pes cavus, unspecified foot; Q53.10 Unspecified undescended testicle, unilateral; F17.210 Nicotine dependence, cigarettes, uncomplicated; F32.9 Major depressive disorder, single episode, unspecified; F41.9 Anxiety disorder, unspecified; Z20.822 Contact with and (suspected) exposure to COVID-19; Z79.899 Other long term (current) drug therapy; Z88.6 Allergy status to analgesic agent; Z88.8 Allergy status to other drugs, medicaments and biological substances
CPT/HCPCS: 31500; 36415; 36600; 70450; 71045; 80048; 80053; 80143; 80179; 80306; 80320; 82805; 83605; 83735; 85025; 85027; 87635; 93005; 94002; 94003; 95816; 96361; 96365; 96367; 96375; 96376; 99291

== ENCOUNTER → 2021-03-06 | Outpatient (CLI) | payer BC ==
--- NOTE | 2021-03-06 21:23 | EEG ---
ELECTROENCEPHALOGRAM REPORT PROCEDURE DATE: 03/06/2021. ELECTROENCEPHALOGRAM (EEG) REPORT: TECHNIQUE: This is a report from a prolonged 2.5 hour outpatient digital video EEG performed using the 10/20 electrode placement system. HISTORY: Recent hospital admission for multiple seizures, patient needed to be intubated and sedated. CURRENT MEDICATIONS: Zoloft, Depakote, Vimpat. STUDY DURATION: Recording start time: 03/06/2021 at 7:05 am. Recording end time: 03/06/2021 at 10:04 am. EVENTS: During this 2.5 hour prolonged EEG, no clinical or electrographic seizures were recorded. BACKGROUND: The background activity consisted of 7 and 9 hertz rhythmic waveforms with some intermixed theta range slowing. ACTIVATION: Hyperventilation: Induced mild physiological slowing. Photic stimulation: Symmetric driving seen. Sleep: Drowsy. ABNORMALITIES: 1. Frequent runs of frontally predominant theta range slowing were seen with intermixed sharp waves. These ones lasted from 1-3 seconds. These runs involved the bilateral frontotemporal chains. The sharp waves at times had a more frontal, F7, F8 maximum. 2. Individual independent left greater than right frontotemporal sharp waves were seen. 3. Some of the sharp waves mentioned in #2 above were followed by after going slow wave. 4. Frequent focal left mid temporal and independent right midtemporal theta range slowing was seen, left greater than right. IMPRESSION: Abnormal prolonged 2.5 hour video EEG. No clinical or electrographic seizures were recorded. Interictal epileptiform activity was seen over the left mid temporal greater than right midtemporal region. This refers to the sharp and slow waves seen. These discharges were epileptiform in nature. In addition, runs of more frontally predominant theta range slowing was were seen with intermixed sharp waves. CONCLUSION: These findings suggest the presence of independent epileptiform foci involving the left mid temporal greater than right midtemporal region. These findings also suggest the potential presence of a midline epileptiform focus. These findings also indicate mild diffuse cerebral dysfunction with greater focal involvement of the left greater than right midtemporal region. MMODL / IJN: [id number] /
== END | disposition home or self-care (01) ==
LOC: NEUROMAIN 06:48
PROVIDERS: ATTEND Student in an Organized Health Care Education/Training Program
DX: R56.9 Unspecified convulsions (principal)
CPT/HCPCS: 95713

== ENCOUNTER 2021-03-27 18:33 | Emergency (ER) | payer BC ==
[2021-03-27 18:49] VITALS: TEMP 96.9
[2021-03-27] MEDS ORDERED: LORazepam 2 MG/ML INJ IV STA (19:33)
[2021-03-27 20:00] LABS: Basophils % (A) 0 %; Eosinophils # (A) 0.1 k/uL (0-0.7); Eosinophils % (A) 1 %; HGB 14.6 gm/dL (13.0-17.5); Lymphocytes # (A) 1.4 k/uL (1.0-4.8); Lymphocytes % (A) 15 %; MCH 28.5 pg (25.0-35.0); MCHC 32.3 g/dL (31.0-37.0); Mean Platelet Volume 9.3; Monocytes # (A) 0.5 k/uL (0-1.0); Monocytes % (A) 6 %; Neutrophils # (A) 7.1 k/uL (1.3-7.7); Neutrophils % (A) 77 %; Platelet Count 215 k/uL (150-450); RBC 5.12 m/uL (4.30-5.90); RDW 12.8 % (11.5-15.5); WBC 9.3 k/uL (3.8-10.6)
[2021-03-27 20:08] LABS: ALT 12 U/L (4-49); AST 22 U/L (17-59); African American GFR (CKD) >90 (>60 ml/min/1.73 sqM); Albumin 4.6 g/dL (3.5-5.0); Alkaline Phosphatase 36 U/L (38-126); Anion Gap 10 mmol/L; Appearance,Urine Clear (Clear); Bilirubin,Urine Negative (Negative); Blood Urea Nitrogen 13 mg/dL (9-20); Blood,Urine Negative (Negative); Calcium 9.7 mg/dL (8.4-10.2); Carbon Dioxide 26 mmol/L (22-30); Chloride 104 mmol/L (98-107); Color,Urine Yellow; Glucose 84 mg/dL (74-99); Glucose,Urine (UA) Negative (Negative); Hyaline Casts,Urine 1 /lpf (0-2); Ketones,Urine 1+ (Negative); Leukocyte Esterase,Urine Negative (Negative); Mucus,Urine Moderate /hpf; Nitrite,Urine Negative (Negative); Non-African American GFR(CKD) >90 (>60 ml/min/1.73 sqM); Potassium 4.5 mmol/L (3.5-5.1); Protein,Urine 1+ (Negative); RBC,Urine <1 /hpf (0-5); Sodium 140 mmol/L (137-145); Specific Gravity,Urine 1.019 (1.001-1.035); Squamous Epithelial Cell,Urine <1 /hpf (0-4); Total Bilirubin 0.2 mg/dL (0.2-1.3); Urobilinogen,Urine <2.0 mg/dL (<2.0); WBC,Urine 1 /hpf (0-5)
[2021-03-27 20:13] LABS: Valproic Acid (Depakene) 55.2 ug/mL
[2021-03-27 20:50] VITALS: RESP 16
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
[2021-03-27 21:33] VITALS: BP 129/77; PULSE 71
== END 2021-03-27 21:32 | disposition home or self-care (01) ==
LOC: EC 18:33
DX: G40.909 Epilepsy, unspecified, not intractable, without status epilepticus (principal); F17.200 Nicotine dependence, unspecified, uncomplicated; Z88.8 Allergy status to other drugs, medicaments and biological substances; Z79.899 Other long term (current) drug therapy
CPT/HCPCS: 36415; 93005; 80164; 80053; 85025; 81001; 99284; 96374; J2060

== ENCOUNTER → 2021-04-06 | Outpatient (CLI) | payer BC ==
--- NOTE | 2021-04-07 04:16 | MR ---
EXAMINATION TYPE: MR brain wo/w con DATE OF EXAM: 04/06/2021 COMPARISON: 01/17/2020 HISTORY: Seizure disorder CONTRAST: Standard multiplanar, multisequence MRI departmental protocol utilizing 6.5 mL intravenous gadolinium contrast. Ventricles and sulci appear normal. There is no mass effect nor midline shift. There is no evidence o f intracranial hemorrhage. [place]-white matter structures have fairly normal signal pattern. There is n o evidence of cerebral edema. Skull base appears intact. There is no evidence of posterior fossa mass . Cerebellum appears normal. Brainstem is intact. The sella turcica appears normal. Corpus callosum appears normal. There is no evidence of orbital mas s. The contrast images show normal enhancement of the venous sinuses. Pituitary stalk is in the midline. Optic chiasm appears normal. There is a globular appearing rounded pituitary gland in the midline n ot changed compared to old exam. There is 4 mm rounded area of decreased enhancement within the midli ne pituitary gland. There is convex superior border of the pituitary gland suggestive of enlargement There is a small linear area of enhancement in the white matter right posterior frontal lobe that cou ld be a small vascular malformation. This appears unchanged compared to old exam. IMPRESSION: There is probably a small venous angioma right posterior frontal lobe without change compared to old exam. Globular pituitary gland with midline rounded 4 mm nonenhancing area that could be a macroadenoma. Th is appears unchanged compared to last exam.
== END | disposition home or self-care (01) ==
LOC: RADMRIMAIN 11:30
PROVIDERS: ATTEND Psychiatry & Neurology Neurology
DX: R56.9 Unspecified convulsions (principal)
CPT/HCPCS: 70553; A9585

== ENCOUNTER 2021-04-29 06:02 | Emergency (ER) | payer BC ==
[2021-04-29 06:10] VITALS: BP 119/68; PULSE 86; RESP 17; TEMP 98.2
[2021-04-29] MEDS ORDERED: ONDANSETRON 4 MG ODT STARTER PACK 2 TAB BTL PO STA (06:17)
--- NOTE | 2021-04-29 06:18 | ED ---
General Adult HPI - General Chief complaint: Nausea/Vomiting/Diarrhea Stated complaint: NVD Time Seen by Provider: 04/29/21 06:07 Source: patient, RN notes reviewed Mode of arrival: ambulatory Limitations: no limitations - History of Present Illness Initial comments: This a 21-year-old male presents emergency Department chief complaint nausea vomiting diarrhea. Patient states symptoms started approximate 6 hours ago. Patient states that he has multiple contacts in the household with similar symptoms. Patient was given fluids and Zofran upon arrival states she feels greatly improved. Patient has no localized abdominal pain no fevers chills no chest pain or shortness breath no other current complaints. - Related Data Home Medications Medication Instructions Recorded Confirmed Sertraline HCl [Zoloft] 100 mg PO DAILY 12/10/20 03/27/21 Previous Rx's Medication Instructions Recorded Divalproex [Depakote] 250 mg PO BID #60 tablet. 03/01/21 Lacosamide [Vimpat] 200 mg PO BID 30 Days #60 tab 03/01/21 Ondansetron Odt [Zofran Odt] 4 mg PO Q8HR PRN #10 tab 04/29/21 Allergies Allergy/AdvReac Type Severity Reaction Status Date / Time diphenhydramine HCl Allergy Unknown-SEE Verified 04/29/21 06:09 [From Benadryl] COMMENTS sumatriptan [From Imitrex] AdvReac seizure Verified 04/29/21 06:09 sumatriptan succinate AdvReac seizure Verified 04/29/21 06:09 [From Imitrex] Review of Systems ROS Statement: Those systems with pertinent positive or pertinent negative responses have been documented in the HPI. ROS Other: All systems not noted in ROS Statement are negative. Past Medical History Past Medical History: Seizure Disorder Additional Past Medical History / Comment(s): History of treated syphilitic infection-2019 History of Any Multi-Drug Resistant Organisms: None Reported Past Surgical History: Adenoidectomy, Tonsillectomy Additional Past Surgical History / Comment(s): undecended testicle Past Anesthesia/Blood Transfusion Reactions: No Reported Reaction Past Psychological History: No Psychological Hx Reported Smoking Status: Current some day smoker Past Alcohol Use History: Rare Past Drug Use History: None Reported - Past Family History Mother Family Medical History: Hypertension Additional Family Medical History / Comment(s): on mothers side their is an extensive history of colitis, ulcerative colitis, IBS Chrohns Father Family Medical History: Diabetes Mellitus General Exam General appearance: alert, in no apparent distress Head exam: Present: atraumatic, normocephalic, normal inspection Eye exam: Present: normal appearance, PERRL, EOMI. Absent: scleral icterus, conjunctival injection, periorbital swelling Respiratory exam: Present: normal lung sounds bilaterally. Absent: respiratory distress, wheezes, rales, rhonchi, stridor Cardiovascular Exam: Present: regular rate, normal rhythm, normal heart sounds. Absent: systolic murmur, diastolic murmur, rubs, gallop, clicks GI/Abdominal exam: Present: soft, normal bowel sounds. Absent: distended, tenderness, guarding, rebound, rigid Course Vital Signs 04/29/21 06:05 Temperature 98.2 F Pulse Rate 86 Respiratory 17 Rate Blood Pressure 119/68 O2 Sat by Pulse 100 Oximetry Medical Decision Making - Medical Decision Making 21-year-old presented for nausea and diarrhea. Patient is asymptomatic after Zofran. He has no abdominal tenderness vitals are stable. Patient feels comfortable discharged with antiemetics. Patient has gastroenteritis. Patient labwork patient declined. Disposition Clinical Impression: Gastroenteritis Disposition: HOME SELF-CARE Condition: Stable Instructions (If sedation given, give patient instructions): Gastroenteritis (ED) Additional Instructions: Please return to the Emergency Department if symptoms worsen or any other concer ns. Prescriptions: Ondansetron Odt [Zofran Odt] 4 mg PO Q8HR PRN #10 tab PRN Reason: Nausea Is patient prescribed a controlled substance at d/c from ED?: No Referrals: Davian Nam MD [Primary Care Provider] - 1-2 days Time of Disposition: 06:18
== END 2021-04-29 06:27 | disposition home or self-care (01) ==
LOC: EC 06:02
DX: K52.9 Noninfective gastroenteritis and colitis, unspecified (principal); F17.200 Nicotine dependence, unspecified, uncomplicated; Z88.8 Allergy status to other drugs, medicaments and biological substances
CPT/HCPCS: 99283; S0119

== ENCOUNTER 2021-06-20 17:09 | Emergency (ER) | payer BC, OTHER ==
[2021-06-20 17:24] LABS: Glucose,Whole Blood 127 mg/dL (75-99)
--- NOTE | 2021-06-20 17:32 | ED ---
General Adult HPI - General Stated complaint: seizures Time Seen by Provider: 06/20/21 17:09 Source: patient, RN notes reviewed, old records reviewed - History of Present Illness Initial comments: This is a 21-year-old male with past medical history significant for seizures. Patient had a seizure lasted approximately 5-6 minutes today. Patient has 2 antiseizure medications that he takes readily. Patient also started to vomit profusely after he had seizures. Patient received Zofran from us and that resolved his nausea. Patient denies any numbness weakness. Patient chest pain patient denies any recent fever chills or cough per patient denies abdominal pain patient's nausea vomiting diarrhea. - Related Data Home Medications Medication Instructions Recorded Confirmed Sertraline HCl [Zoloft] 100 mg PO DAILY 12/10/20 06/20/21 Divalproex [Depakote] 500 mg PO BID 06/20/21 06/20/21 Tretinoin [Tretinoin 0.1%] 1 applic TOPICAL HS 06/20/21 06/20/21 Previous Rx's Medication Instructions Recorded Lacosamide [Vimpat] 200 mg PO BID 30 Days #60 tab 03/01/21 Ondansetron Odt [Zofran Odt] 4 mg PO Q8HR PRN #10 tab 04/29/21 Allergies Allergy/AdvReac Type Severity Reaction Status Date / Time diphenhydramine HCl Allergy Unknown-SEE Verified 06/20/21 17:20 [From Benadryl] COMMENTS sumatriptan [From Imitrex] AdvReac seizure Verified 06/20/21 17:20 sumatriptan succinate AdvReac seizure Verified 06/20/21 17:20 [From Imitrex] Review of Systems ROS Statement: Those systems with pertinent positive or pertinent negative responses have been documented in the HPI. ROS Other: All systems not noted in ROS Statement are negative. Past Medical History Past Medical History: Seizure Disorder Additional Past Medical History / Comment(s): History of treated syphilitic in fection-2019 History of Any Multi-Drug Resistant Organisms: None Reported Past Surgical History: Adenoidectomy, Tonsillectomy Additional Past Surgical History / Comment(s): undecended testicle Past Anesthesia/Blood Transfusion Reactions: No Reported Reaction Past Psychological History: No Psychological Hx Reported Smoking Status: Current some day smoker Past Alcohol Use History: Rare Past Drug Use History: None Reported - Past Family History Mother Family Medical History: Hypertension Additional Family Medical History / Comment(s): on mothers side their is an extensive history of colitis, ulcerative colitis, IBS Chrohns Father Family Medical History: Diabetes Mellitus General Exam - General Exam Comments Initial Comments: GENERAL: Patient is well-developed and well-nourished. Patient is nontoxic and well-hyd rated and is in mild distress. ENT: Neck is soft and supple. No significant lymphadenopathy is noted. Oropharynx is clear. Moist mucous membranes. Neck has full range of motion without eliciting any pain. EYES: The sclera were anicteric and conjunctiva were pink and moist. Extraocular movements were intact and pupils were equal round and reactive to light. Eyelids were unremarkable. PULMONARY: Unlabored respirations. Good breath sounds bilaterally. No audible rales rhonchi or wheezing was noted. CARDIOVASCULAR: There is a regular rate and rhythm without any murmurs gallops or rubs. ABDOMEN: Soft and nontender with normal bowel sounds. SKIN: Skin is clear with no lesions or rashes and otherwise unremarkable. NEUROLOGIC: Patient is alert and oriented 2. Cranial nerves II through XII are grossly intact. Motor and sensory are also intact. Normal speech, volume and content. Symmetrical smile. MUSCULOSKELETAL: Normal extremities with adequate strength and full range of motion. LYMPHATICS: No significant lymphadenopathy is noted PSYCHIATRIC: Normal psychiatric evaluation. Course Vital Signs 06/20/21 06/20/21 17:10 18:02 Temperature 98.5 F Pulse Rate 112 H 75 Respiratory 20 18 Rate Blood Pressure 152/91 123/78 O2 Sat by Pulse 97 99 Oximetry Medical Decision Making - Medical Decision Making EKG shows normal sinus rhythm at 70 bpm DC interval is 170 QRS is under 2 QT interval 396 QTC is 427. Patient's EKG shows no ST segment elevation or depression. Patient is back to his baseline. Chest x-ray shows no acute normalities. - Lab Data Result diagrams: 06/20/21 17:20 06/20/21 17:24 Lab Results 06/20/21 06/20/21 06/20/21 Range/Units 17:20 17:23 17:24 WBC 13.4 H (3.8-10.6) k/uL RBC 5.23 (4.30-5.90) m/uL Hgb 15.4 (13.0-17.5) gm/dL Hct 47.3 (39.0-53.0) % MCV 90.5 (80.0-100.0) fL MCH 29.4 (25.0-35.0) pg MCHC 32.5 (31.0-37.0) g/dL RDW 13.1 (11.5-15.5) % Plt Count 253 (150-450) k/uL MPV 9.5 Neutrophils % 55 % Lymphocytes % 35 % Monocytes % 6 % Eosinophils % 2 % Basophils % 1 % Neutrophils # 7.3 (1.3-7.7) k/uL Lymphocytes # 4.6 (1.0-4.8) k/uL Monocytes # 0.8 (0-1.0) k/uL Eosinophils # 0.3 (0-0.7) k/uL Basophils # 0.1 (0-0.2) k/uL Sodium 138 (137-145) mmol/L Potassium 4.3 (3.5-5.1) mmol/L Chloride 101 (98-107) mmol/L Carbon Dioxide 13 L (22-30) mmol/L Anion Gap 24 mmol/L BUN 12 (9-20) mg/dL Creatinine 0.67 (0.66-1.25) mg/dL Est GFR (CKD-EPI)AfAm >90 (>60 ml/min/1.73 sqM) Est GFR (CKD-EPI)NonAf >90 (>60 ml/min/1.73 sqM) Glucose 139 H (74-99) mg/dL POC Glucose (mg/dL) 127 H (75-99) mg/dL POC Glu Manager Of [facility] ID Jerad Nagel Calcium 10.2 (8.4-10.2) mg/dL Total Bilirubin 0.5 (0.2-1.3) mg/dL AST 40 (17-59) U/L ALT 39 (4-49) U/L Alkaline Phosphatase 37 L (38-126) U/L Total Protein 7.8 (6.3-8.2) g/dL Albumin 5.0 (3.5-5.0) g/dL Valproic Acid 37.6 ug/mL Disposition Clinical Impression: Generalized seizure Disposition: HOME SELF-CARE Instructions (If sedation given, give patient instructions): Seizure/Epilepsy Discharge Instructions & Follow-Up Is patient prescribed a controlled substance at d/c from ED?: No Referrals: Davian Nam MD [Primary Care Provider] - 1-2 days Time of Disposition: 18:50
[2021-06-20 17:34] LABS: Basophils # (A) 0.1 k/uL (0-0.2); Basophils % (A) 1 %; Eosinophils # (A) 0.3 k/uL (0-0.7); Eosinophils % (A) 2 %; HCT 47.3 % (39.0-53.0); HGB 15.4 gm/dL (13.0-17.5); Lymphocytes # (A) 4.6 k/uL (1.0-4.8); Lymphocytes % (A) 35 %; MCH 29.4 pg (25.0-35.0); MCHC 32.5 g/dL (31.0-37.0); MCV 90.5 fL (80.0-100.0); Mean Platelet Volume 9.5; Monocytes # (A) 0.8 k/uL (0-1.0); Monocytes % (A) 6 %; Neutrophils # (A) 7.3 k/uL (1.3-7.7); Neutrophils % (A) 55 %; Platelet Count 253 k/uL (150-450); RBC 5.23 m/uL (4.30-5.90); RDW 13.1 % (11.5-15.5); WBC 13.4 k/uL (3.8-10.6)
--- NOTE | 2021-06-20 17:38 | XR ---
EXAMINATION TYPE: XR chest 2V DATE OF EXAM: 06/20/2021 COMPARISON: 03/01/2021 INDICATION: Difficulty breathing TECHNIQUE: Frontal and lateral views of the chest are obtained. FINDINGS: The heart size is normal. The pulmonary vasculature is normal. The lungs are clear. Clinical consideration for pectus excavatum. Bilateral nipple piercings are present. There is some scoliosis through the upper thoracic spine. IMPRESSION: 1. No acute pulmonary process.
[2021-06-20 17:52] LABS: AST 40 U/L (17-59); African American GFR (CKD) >90 (>60 ml/min/1.73 sqM); Alkaline Phosphatase 37 U/L (38-126); Anion Gap 24 mmol/L; Blood Urea Nitrogen 12 mg/dL (9-20); Calcium 10.2 mg/dL (8.4-10.2); Carbon Dioxide 13 mmol/L (22-30); Chloride 101 mmol/L (98-107); Glucose 139 mg/dL (74-99); Non-African American GFR(CKD) >90 (>60 ml/min/1.73 sqM); Potassium 4.3 mmol/L (3.5-5.1); Sodium 138 mmol/L (137-145); Total Bilirubin 0.5 mg/dL (0.2-1.3); Total Protein 7.8 g/dL (6.3-8.2)
[2021-06-20 17:57] LABS: Valproic Acid (Depakene) 37.6 ug/mL
[2021-06-20 18:01] LABS: ALT 39 U/L (4-49)
[2021-06-20 18:03] VITALS: RESP 18
[2021-06-20] MEDS ORDERED: ACETAMINOPHEN TAB 500 MG TAB PO STA (18:09)
[2021-06-20 19:11] VITALS: BP 130/82; PULSE 70; TEMP 98
== END 2021-06-20 19:10 | disposition home or self-care (01) ==
LOC: EC 17:09
DX: G40.409 Other generalized epilepsy and epileptic syndromes, not intractable, without status epilepticus (principal); F17.200 Nicotine dependence, unspecified, uncomplicated; Z88.8 Allergy status to other drugs, medicaments and biological substances; Z79.899 Other long term (current) drug therapy
CPT/HCPCS: 36415; 71046; 80053; 80164; 85025; 93005; 99284

== ENCOUNTER 2021-08-10 11:00 | Inpatient (IN) | payer BC, OTHER ==
[2021-08-10] MEDS ORDERED: SODIUM CHLORIDE 0.9% 1,000 ML IV STA (11:13)
[2021-08-10] MEDS ORDERED: PIPERACILLIN-TAZOBACTAM 3.375 GM in SODIUM CHLORIDE 0.9% 100 ML IVPB STA (11:28)
[2021-08-10] MEDS ORDERED: SUCCINYLCHOLINE CHLORIDE VIAL 200 MG/10 ML VIAL IV ONE (11:30)
--- NOTE | 2021-08-10 11:36 | XR ---
EXAMINATION TYPE: XR chest 1V DATE OF EXAM: 08/10/2021 COMPARISON: 06/20/21 HISTORY: SOB TECHNIQUE: Single frontal view of the chest is obtained. FINDINGS: There is a small focal air space opacity Right LLL. No pleural effusion, or pneumothorax s een. The cardiac silhouette size is within normal limits. The osseous structures are intact. IMPRESSION: New small RLL infiltrate
--- NOTE | 2021-08-10 11:47 | ED ---
Seizure HPI <Raoul Prado - Last Filed: 08/10/21 11:48> - General Source: family, EMS, RN notes reviewed Mode of arrival: EMS Limitations: altered mental status <Dragan Menendez - Last Filed: 08/10/21 15:18> - General Chief Complaint: Seizure Stated Complaint: Seizure Time Seen by Provider: 08/10/21 11:12 - History of Present Illness Initial Comments: This is a 21-year-old male presents emergency department via EMS with chief tenderness seizure. Patient is brought in after multiple seizures, seizures in the EMS rig was given 50 mg total of Versed. Patient remains be altered, increased dyspnea on nonrebreather. Significant other states that he has recurrent seizures by his postictal state was prolonged, remained have another seizure. Significant other states that his reading seems to be getting worse, noticed some gurgling sound which was not present for he had no prior illness other than seizures to this. No evidence of vomiting. (Dragan Menendez) - Related Data Home Medications Medication Instructions Recorded Confirmed Sertraline HCl [Zoloft] 100 mg PO DAILY 12/10/20 08/10/21 Divalproex [Depakote] 1,500 mg PO BID 06/20/21 08/10/21 Lacosamide [Vimpat] 300 mg PO BID 08/10/21 08/10/21 Midazolam [Nayzilam] 1 spray NASAL DIRECTED PRN 08/10/21 08/10/21 Allergies Allergy/AdvReac Type Severity Reaction Status Date / Time diphenhydramine HCl Allergy Unknown-SEE Verified 08/10/21 13:40 [From Benadryl] COMMENTS sumatriptan [From Imitrex] AdvReac seizure Verified 08/10/21 13:40 sumatriptan succinate AdvReac seizure Verified 08/10/21 13:40 [From Imitrex] Review of Systems ROS Other: All systems not noted in ROS Statement are negative. <Raoul Prado - Last Filed: 08/10/21 11:48> ROS Other: All systems not noted in ROS Statement are negative. <Dragan Menendez - Last Filed: 08/10/21 15:18> ROS Statement: Those systems with pertinent positive or pertinent negative responses have been documented in the HPI. Past Medical History Past Medical History: Seizure Disorder Additional Past Medical History / Comment(s): History of treated syphilitic infection-2019 History of Any Multi-Drug Resistant Organisms: None Reported Past Surgical History: Adenoidectomy, Tonsillectomy Additional Past Surgical History / Comment(s): undecended testicle Past Anesthesia/Blood Transfusion Reactions: No Reported Reaction Past Psychological History: Depression Smoking Status: Former smoker Past Alcohol Use History: Rare Past Drug Use History: None Reported - Past Family History Mother Family Medical History: Hypertension Additional Family Medical History / Comment(s): on mothers side their is an extensive history of colitis, ulcerative colitis, IBS Chrohns Father Family Medical History: Diabetes Mellitus <Dragan Menendez - Last Filed: 08/10/21 15:18> General Exam Limitations: altered mental status General appearance: alert, in distress (The [facility]) Head exam: Present: atraumatic, normocephalic, normal inspection Eye exam: Present: normal appearance, PERRL, EOMI. Absent: scleral icterus, conjunctival injection, periorbital swelling ENT exam: Present: normal exam, mucous membranes moist Neck exam: Present: normal inspection, full ROM. Absent: tenderness, meningismus, lymphadenopathy Respiratory exam: Present: respiratory distress, rales, rhonchi. Absent: normal lung sounds bilaterally, wheezes, stridor Cardiovascular Exam: Present: regular rate, normal rhythm, normal heart sounds. Absent: systolic murmur, diastolic murmur, rubs, gallop, clicks <Dragan Menendez M - Last Filed: 08/10/21 15:18> Course Vital Signs 08/10/21 08/10/21 08/10/21 11:09 11:32 11:53 Pulse Rate 95 133 H 128 H Respiratory 38 H 45 H 32 H Rate Blood Pressure 150/84 132/63 147/106 O2 Sat by Pulse 97 94 L 100 Oximetry 08/10/21 08/10/21 08/10/21 13:42 13:55 14:00 Pulse Rate 104 H 105 H 112 H Respiratory 20 Rate Blood Pressure 116/67 135/69 141/69 O2 Sat by Pulse 97 100 100 Oximetry 08/10/21 15:05 Pulse Rate 83 Respiratory 16 Rate Blood Pressure 128/69 O2 Sat by Pulse 81 L Oximetry Procedures - Intubation Paralytic: Succinylcholine Laryngoscope: Peña Size: 3 ET Tube Size: 8 ET Tube Uncuffed: No Tube Placement Confirmation: visualized tube passing through cords, equal breath sounds bilaterally, no breath sounds over epigastrium, confirmation by capnometry Patient Tolerated Procedure: well Intubation Complications: none <Raoul Prado - Last Filed: 08/10/21 11:48> Medical Decision Making <Raoul Prado - Last Filed: 08/10/21 11:48> - Lab Data Result diagrams: 08/10/21 11:25 08/10/21 11:25 <Dragan Menendez - Last Filed: 08/10/21 15:18> - Medical Decision Making IMoisés, personally saw and examined the patient. I have reviewed and agree with the PA findings, including all diagnostic interpretations and treatment plans as written unless otherwise stated. I was present for the ku portions of any procedures performed and the inclusive time noted for any critical care statement. (Raoul Prado) This a 21-year-old male present emergency department for recurrent seizures. Patient was given 15 mg of Versed prior arrival. Patient developed respiratory distress. Patient was intubated, by Dr. Prado, evaluated by Dr. Arshad in emergency department. Patient had significant lactic acidosis related to seizure. Patient was given antibiotics for concerns of aspiration. (Dragan Menendez) - Lab Data Lab Results 08/10/21 08/10/21 08/10/21 Range/Units 11:25 11:25 11:25 WBC 22.8 H (3.8-10.6) k/uL RBC 5.23 (4.30-5.90) m/uL Hgb 15.5 (13.0-17.5) gm/dL Hct 48.0 (39.0-53.0) % MCV 91.8 (80.0-100.0) fL MCH 29.6 (25.0-35.0) pg MCHC 32.2 (31.0-37.0) g/dL RDW 13.0 (11.5-15.5) % Plt Count 187 (150-450) k/uL MPV 9.7 Neutrophils % (Manual) 34 % Band Neuts % (Manual) 2 % Lymphocytes % (Manual) 54 % Monocytes % (Manual) 5 % Eosinophils % (Manual) 4 % Metamyelocytes % 1 % Myelocytes % 3 % Neutrophils # (Manual) 8.20 H (1.3-7.7) k/uL Lymphocytes # (Manual) 12.31 H (1.0-4.8) k/uL Monocytes # (Manual) 1.14 H (0-1.0) k/uL Eosinophils # (Manual) 0.91 H (0-0.7) k/uL Metamyelocytes # (Man) 0.23 H (0) k/uL Myelocytes # (Manual) 0.68 H (0) k/uL Nucleated RBCs 0 (0-0) /100 WBC Manual Slide Review Performed Reactive Lymphocytes Present RBC Morphology Normal Sample Site ABG pH (7.35-7.45) ABG pCO2 (35-45) mmHg ABG pO2 (83-108) mmHg ABG HCO3 (21-25) mmol/L ABG Total CO2 (19-24) mmol/L ABG O2 Saturation (94-97) % ABG Base Excess mmol/L José Test FiO2 % Sodium 135 L (137-145) mmol/L Potassium 4.4 (3.5-5.1) mmol/L Chloride 100 (98-107) mmol/L Carbon Dioxide 15 L (22-30) mmol/L Anion Gap 20 mmol/L BUN 15 (9-20) mg/dL Creatinine 0.89 (0.66-1.25) mg/dL Est GFR (CKD-EPI)AfAm >90 (>60 ml/min/1.73 sqM) Est GFR (CKD-EPI)NonAf >90 (>60 ml/min/1.73 sqM) Glucose 165 H (74-99) mg/dL Lactic Ac Sepsis Rflx Plasma Lactic Acid Mo (0.7-2.0) mmol/L Calcium 8.7 (8.4-10.2) mg/dL Magnesium 2.4 H (1.6-2.3) mg/dL Total Bilirubin 0.3 (0.2-1.3) mg/dL AST 40 (17-59) U/L ALT 24 (4-49) U/L Alkaline Phosphatase 50 (38-126) U/L Troponin I <0.012 (0.000-0.034) ng/mL NT-Pro-B Natriuret Pep pg/mL Total Protein 7.4 (6.3-8.2) g/dL Albumin 4.6 (3.5-5.0) g/dL Valproic Acid 70.8 ug/mL Coronavirus (PCR) (Not Detectd) 08/10/21 08/10/21 08/10/21 Range/Units 11:25 11:25 11:27 WBC (3.8-10.6) k/uL RBC (4.30-5.90) m/uL Hgb (13.0-17.5) gm/dL Hct (39.0-53.0) % MCV (80.0-100.0) fL MCH (25.0-35.0) pg MCHC (31.0-37.0) g/dL RDW (11.5-15.5) % Plt Count (150-450) k/uL MPV Neutrophils % (Manual) % Band Neuts % (Manual) % Lymphocytes % (Manual) % Monocytes % (Manual) % Eosinophils % (Manual) % Metamyelocytes % % Myelocytes % % Neutrophils # (Manual) (1.3-7.7) k/uL Lymphocytes # (Manual) (1.0-4.8) k/uL Monocytes # (Manual) (0-1.0) k/uL Eosinophils # (Manual) (0-0.7) k/uL Metamyelocytes # (Man) (0) k/uL Myelocytes # (Manual) (0) k/uL Nucleated RBCs (0-0) /100 WBC Manual Slide Review Reactive Lymphocytes RBC Morphology Sample Site ABG pH (7.35-7.45) ABG pCO2 (35-45) mmHg ABG pO2 (83-108) mmHg ABG HCO3 (21-25) mmol/L ABG Total CO2 (19-24) mmol/L ABG O2 Saturation (94-97) % ABG Base Excess mmol/L José Test FiO2 % Sodium (137-145) mmol/L Potassium (3.5-5.1) mmol/L Chloride (98-107) mmol/L Carbon Dioxide (22-30) mmol/L Anion Gap mmol/L BUN (9-20) mg/dL Creatinine (0.66-1.25) mg/dL Est GFR (CKD-EPI)AfAm (>60 ml/min/1.73 sqM) Est GFR (CKD-EPI)NonAf (>60 ml/min/1.73 sqM) Glucose (74-99) mg/dL Lactic Ac Sepsis Rflx Plasma Lactic Acid Mo 12.0 H* (0.7-2.0) mmol/L Calcium (8.4-10.2) mg/dL Magnesium (1.6-2.3) mg/dL Total Bilirubin (0.2-1.3) mg/dL AST (17-59) U/L ALT (4-49) U/L Alkaline Phosphatase (38-126) U/L Troponin I (0.000-0.034) ng/mL NT-Pro-B Natriuret Pep 60 pg/mL Total Protein (6.3-8.2) g/dL Albumin (3.5-5.0) g/dL Valproic Acid ug/mL Coronavirus (PCR) Not Detected (Not Detectd) 08/10/21 08/10/21 Range/Units 12:22 12:35 WBC (3.8-10.6) k/uL RBC (4.30-5.90) m/uL Hgb (13.0-17.5) gm/dL Hct (39.0-53.0) % MCV (80.0-100.0) fL MCH (25.0-35.0) pg MCHC (31.0-37.0) g/dL RDW (11.5-15.5) % Plt Count (150-450) k/uL MPV Neutrophils % (Manual) % Band Neuts % (Manual) % Lymphocytes % (Manual) % Monocytes % (Manual) % Eosinophils % (Manual) % Metamyelocytes % % Myelocytes % % Neutrophils # (Manual) (1.3-7.7) k/uL Lymphocytes # (Manual) (1.0-4.8) k/uL Monocytes # (Manual) (0-1.0) k/uL Eosinophils # (Manual) (0-0.7) k/uL Metamyelocytes # (Man) (0) k/uL Myelocytes # (Manual) (0) k/uL Nucleated RBCs (0-0) /100 WBC Manual Slide Review Reactive Lymphocytes RBC Morphology Sample Site rrad ABG pH 7.33 L (7.35-7.45) ABG pCO2 46 H (35-45) mmHg ABG pO2 >400 H (83-108) mmHg ABG HCO3 24 (21-25) mmol/L ABG Total CO2 26 H (19-24) mmol/L ABG O2 Saturation 99.9 H (94-97) % ABG Base Excess -1.9 mmol/L José Test Yes FiO2 100 % Sodium (137-145) mmol/L Potassium (3.5-5.1) mmol/L Chloride (98-107) mmol/L Carbon Dioxide (22-30) mmol/L Anion Gap mmol/L BUN (9-20) mg/dL Creatinine (0.66-1.25) mg/dL Est GFR (CKD-EPI)AfAm (>60 ml/min/1.73 sqM) Est GFR (CKD-EPI)NonAf (>60 ml/min/1.73 sqM) Glucose (74-99) mg/dL Lactic Ac Sepsis Rflx Y Plasma Lactic Acid Mo (0.7-2.0) mmol/L Calcium (8.4-10.2) mg/dL Magnesium (1.6-2.3) mg/dL Total Bilirubin (0.2-1.3) mg/dL AST (17-59) U/L ALT (4-49) U/L Alkaline Phosphatase (38-126) U/L Troponin I (0.000-0.034) ng/mL NT-Pro-B Natriuret Pep pg/mL Total Protein (6.3-8.2) g/dL Albumin (3.5-5.0) g/dL Valproic Acid ug/mL Coronavirus (PCR) (Not Detectd) Critical Care Time Critical Care Time: Yes Total Critical Care Time: 35 <Dragan Menendez - Last Filed: 08/10/21 15:18> Disposition <Raoul Prado - Last Filed: 08/10/21 11:48> <Dragan Menendez - Last Filed: 08/10/21 15:18> Clinical Impression: Status epilepticus, Lactic acidosis, Acute respiratory distress Disposition: ADMITTED IP TO THIS [facility] Condition: Serious Instructions (If sedation given, give patient instructions): Seizure/Epilepsy Discharge Instructions & Follow-Up Referrals: None,Stated [REFERRING] - 1-2 days
[2021-08-10 11:53] LABS: ALT 24 U/L (4-49); AST 40 U/L (17-59); African American GFR (CKD) >90 (>60 ml/min/1.73 sqM); Albumin 4.6 g/dL (3.5-5.0); Alkaline Phosphatase 50 U/L (38-126); Anion Gap 20 mmol/L; Blood Urea Nitrogen 15 mg/dL (9-20); Calcium 8.7 mg/dL (8.4-10.2); Carbon Dioxide 15 mmol/L (22-30); Chloride 100 mmol/L (98-107); Glucose 165 mg/dL (74-99); Magnesium 2.4 mg/dL (1.6-2.3); Non-African American GFR(CKD) >90 (>60 ml/min/1.73 sqM); Potassium 4.4 mmol/L (3.5-5.1); Sodium 135 mmol/L (137-145); Total Bilirubin 0.3 mg/dL (0.2-1.3); Total Protein 7.4 g/dL (6.3-8.2)
[2021-08-10 11:59] LABS: Valproic Acid (Depakene) 70.8 ug/mL
--- NOTE | 2021-08-10 12:15 | XR ---
EXAMINATION TYPE: XR chest 1V DATE OF EXAM: 08/10/2021 COMPARISON: Chest radiograph's most recent same day at 11:27 AM HISTORY: Status post intubation, shortness of breath. TECHNIQUE: Single frontal view of the chest is obtained. FINDINGS: Interval placement of endotracheal tube with distal tip 3.5 cm above the jaida. Nasogastr ic tube has also been fixed with distal tip and side-port projecting off the inferior aspect of the r adiograph. There is no focal air space opacity, pleural effusion, or pneumothorax seen. The cardiac silhouette size is within normal limits. No evidence for acute osseous abnormality. IMPRESSION: 1. Interval placement of endotracheal and nasogastric tube with tips in appropriate position. 2. No evidence of focal airspace consolidation.
[2021-08-10 12:21] LABS: HGB 15.5 gm/dL (13.0-17.5); MCH 29.6 pg (25.0-35.0); MCHC 32.2 g/dL (31.0-37.0); MCV 91.8 fL (80.0-100.0); Mean Platelet Volume 9.7; Platelet Count 187 k/uL (150-450); RBC 5.23 m/uL (4.30-5.90); WBC 22.8 k/uL (3.8-10.6)
[2021-08-10 12:35] LABS: ABG Base Excess -1.9 mmol/L; ABG HCO3 24 mmol/L (21-25); ABG Oxygen Saturation 99.9 % (94-97); ABG PCO2 46 mmHg (35-45); ABG PH 7.33 (7.35-7.45); ABG PO2 >400 mmHg (83-108); ABG TCO2 26 mmol/L (19-24); Allen Test Performed? Yes
[2021-08-10 12:41] LABS: Band Neutrophils % 2 %; Eosinophils # (M) 0.91 k/uL (0-0.7); Lymphocytes # (M) 12.31 k/uL (1.0-4.8); Metamyelocytes # (M) 0.23 k/uL (0); Metamyelocytes % 1 %; Monocytes # (M) 1.14 k/uL (0-1.0); Myelocytes # (M) 0.68 k/uL (0); Myelocytes % 3 %; Neutrophils % (M) 34 %; Nucleated Red Blood Cells 0 /100 WBC (0-0); Total Cells Counted 200
[2021-08-10 12:46] LABS: Reactive Lymphocytes Present
[2021-08-10] MEDS ORDERED: LORazepam 2 MG/ML INJ IV STA ×2 (13:38→17:06)
[2021-08-10] MEDS ORDERED: NALOXONE 0.4 MG/ML 1 ML VIAL IV PRN (15:18)
--- NOTE | 2021-08-10 15:18 | CT ---
EXAMINATION TYPE: CT brain wo con DATE OF EXAM: 08/10/2021 COMPARISON: 02/27/2021 HISTORY: Seizure. CT DLP: 1080.[address] of the brain was performed. The ventricles, basal cisterns and sulci overlying the cerebral convexities demonstrate a normal appe arance. There is no evidence for intracranial hemorrhage or sulcal effacement. No mass effects are seen. Osseous calvarium is intact. If symptoms persist consider MRI as clinically warranted. IMPRESSION: 1. No acute intracranial process is seen at this time.
[2021-08-10] MEDS ORDERED: LORazepam 2 MG/ML INJ IV PRN (15:20)
--- NOTE | 2021-08-10 17:52 | P.CNPUL ---
History of Present Illness Consult date: 08/10/21 Chief complaint: Seizures History of present illness: 21-year-old male patient presented to the emergency department with seizures. Apparently the patient has epilepsy and the patient has been having multiple seizure episodes of breakthrough seizure. On route to the hospital, the patient was given a total of 15 mg of Versed. Immediately after arrival, the patient was able to protect his airways, he had significant respiratory distress. He was using accessory muscles of breathing. He had upper airway secretions. Unable to cough it out. There was evidence of S3 compromise. He was 100% on a beta facemasks. He was completely unresponsive. He does have a pectus excavatum chest deformity. At that point, patient was taken a trauma 1 and the patient was intubated and placed on a mechanical ventilator. Post intubation chest x-ray was essentially clear. The patient has nipple rings bilaterally. The patient has an ET tube that in good location. We were asked to evaluate this patient emergency department and move the patient to the intensive care unit. More than 400 and this was done and FiO2 of 100%. The patient had a la ctic acid level of 12. The serum bicarbonate was 15 with a sodium level of 135. Troponin was negative. ProBNP was negative. The white cell count was 22 with a hemoglobin 15.5 and a platelet count of 187. C CAT scan of the head was negative for any acute intracranial process. In terms of his epilepsy, the patient takes Depakote 1500 mg twice a day and Vimpat 300 mg by mouth twice a day on outpatient basis. Neurology will be consulted. No active seizure at this point in time. Hemodynamically stable on no pressors. Patient is currently on propofol and the dose being titrated to maintain adequate sedation for now. Hernandez catheter was inserted. The patient is on IV fluid and he is afebrile. Review of Systems ROS unobtainable: due to mental status Past Medical History Past Medical History: Seizure Disorder Additional Past Medical History / Comment(s): History of treated syphilitic infection-2019 History of Any Multi-Drug Resistant Organisms: None Reported Past Surgical History: Adenoidectomy, Tonsillectomy Additional Past Surgical History / Comment(s): undecended testicle Past Anesthesia/Blood Transfusion Reactions: No Reported Reaction Past Psychological History: Depression Smoking Status: Former smoker Past Alcohol Use History: Rare Past Drug Use History: None Reported - Past Family History Mother Family Medical History: Hypertension Additional Family Medical History / Comment(s): on mothers side their is an extensive history of colitis, ulcerative colitis, IBS Chrohns Father Family Medical History: Diabetes Mellitus Medications and Allergies Home Medications Medication Instructions Recorded Confirmed Type Sertraline HCl [Zoloft] 100 mg PO DAILY 12/10/20 08/10/21 History Divalproex [Depakote] 1,500 mg PO BID 06/20/21 08/10/21 History Lacosamide [Vimpat] 300 mg PO BID 08/10/21 08/10/21 History Midazolam [Nayzilam] 1 spray NASAL DIRECTED PRN 08/10/21 08/10/21 History Allergies Allergy/AdvReac Type Severity Reaction Status Date / Time diphenhydramine HCl Allergy Unknown-SEE Verified 08/10/21 13:40 [From Benadryl] COMMENTS sumatriptan [From Imitrex] AdvReac seizure Verified 08/10/21 13:40 sumatriptan succinate AdvReac seizure Verified 08/10/21 13:40 [From Imitrex] Physical Exam Vitals: Vital Signs Pulse Resp BP Pulse Ox 08/10/21 16:13 80 17 129/74 99 08/10/21 16:00 80 16 138/84 100 08/10/21 15:35 96 16 120/71 100 08/10/21 15:05 83 16 128/69 81 L 08/10/21 14:00 112 H 141/69 100 08/10/21 13:55 105 H 135/69 100 08/10/21 13:42 104 H 20 116/67 97 08/10/21 11:53 128 H 32 H 147/106 100 08/10/21 11:32 133 H 45 H 132/63 94 L 08/10/21 11:09 95 38 H 150/84 97 Intake and Output 08/10/21 08/10/21 08/10/21 06:59 14:59 22:59 Intake Total 14.424 Balance 14.424 Intake: Intake, IV Titration 14.424 Amount propofoL 1,000 mg In 14.424 Empty Bag 1 bag @ Titrate IV .Q0M [facility] Rx#: [id number] Other: Weight 68.039 kg Calm and comfortable sedated with propofol and the patient is currently intubated on a mechanical ventilator. Head exam was generally normal. There was no scleral icterus or corneal arcus. Mucous membranes were moist. Neck was supple and without jugular venous distension, thyromegaly, or carotid bruits. Carotids were easily palpable bilaterally. There was no adenopathy. The patient has an orotracheal and orogastric tube are both of them are in place. Lungs reveal a pectus excavatum chest deformity. Scattered rhonchi heard bilaterally. No significant wheezing. Cardiac exam revealed the PMI to be normally situated and sized. The rhythm was regular and no extrasystoles were noted during several minutes of auscultation. The first and second heart sounds were normal and physiologic splitting of the second heart sound was noted. There were no murmurs, rubs, clicks, or gallops. Abdominal exam revealed normal bowel sounds. The abdomen was soft, non-tender, and without masses, organomegaly, or appreciable enlargement of the abdominal aorta. Examination of the extremities revealed easily palpable radial, femoral and pedal pulses. There was no cyanosis, clubbing or edema. Examination of the skin revealed no evidence of significant rashes, suspicious appearing nevi or other concerning lesions. Neurologically the patient has been sedated with propofol for now. The patient underwent extensive state. Withdraws to painful stimulation. Motor and sensory function cannot be obtained. Results - Laboratory Findings CBC and BMP: 08/10/21 11:25 08/10/21 11:25 ABG ABG pH 7.33 (7.35-7.45) L 08/10/21 12:35 ABG pCO2 46 mmHg (35-45) H 08/10/21 12:35 ABG pO2 >400 mmHg (83-108) H 08/10/21 12:35 ABG O2 Saturation 99.9 % (94-97) H 08/10/21 12:35 Abnormal lab findings: Abnormal Labs 08/10/21 08/10/21 08/10/21 11:25 11:25 11:27 WBC 22.8 H Neutrophils # (Manual) 8.20 H Lymphocytes # (Manual) 12.31 H Monocytes # (Manual) 1.14 H Eosinophils # (Manual) 0.91 H Metamyelocytes # (Man) 0.23 H Myelocytes # (Manual) 0.68 H ABG pH ABG pCO2 ABG pO2 ABG Total CO2 ABG O2 Saturation Sodium 135 L Carbon Dioxide 15 L Glucose 165 H Plasma Lactic Acid Mo 12.0 H* Magnesium 2.4 H 08/10/21 12:35 WBC Neutrophils # (Manual) Lymphocytes # (Manual) Monocytes # (Manual) Eosinophils # (Manual) Metamyelocytes # (Man) Myelocytes # (Manual) ABG pH 7.33 L ABG pCO2 46 H ABG pO2 >400 H ABG Total CO2 26 H ABG O2 Saturation 99.9 H Sodium Carbon Dioxide Glucose Plasma Lactic Acid Mo Magnesium - Diagnostic Findings Chest x-ray: image reviewed Assessment and Plan Plan: 1 acute hypoxic respiratory failure, a combination of seizures occurring on outpatient basis and the patient was able to protect his airways and there was a concern of breath or secretions and respiratory compromise and for that reason the patient was intubated and placed on a mechanical ventilator. Chest x-ray reveals no evidence of pneumonia. ET tube is in a good location. Blood gases was reviewed 2 history of epilepsy mentation and accommodation of Vimpat and Depakote on outpatient basis. Levels need to be checked. 3 breakthrough seizures and the patient was given a total of 15 mg of Versed on route 4 pectus excavatum chest deformity 5 acute lactic acidosis secondary to seizures 6 anion gap metabolic acidosis secondary to above 7 acute leukocytosis 8 previous history of status epilepticus requiring intubation mechanical ventilation back in March 2021 9 history of marijuana use PLAN Keep the patient intubated on mechanical ventilator for today. This is a ventilator changes will be done. Antibiotic medication needs to be resumed. We'll consult also neurology for any additions. CAT scan of the brain is negative. We'll resume Depakote and Vimpat for now. Check the Depakote levels. Check urine drug screen Continue IV fluids normal saline today to 100 mL an hour Hernandez catheter in place Monitor white cell count Keep the patient propofol for now Lovenox for DVT prophylaxis IV Protonix EEG We'll continue to follow. The patient be transferred to the intensive care unit. Time with Patient: Greater than 30
[2021-08-10] MEDS: MIDAZOLAM HCL 50 MG in SODIUM CHLORIDE 0.9% 40 ML IV SCH (18:00)
[2021-08-10] MEDS ORDERED: LACOSAMIDE IV 100 MG in SODIUM CHLORIDE 0.9% 50 ML IVPB STA (18:02)
[2021-08-10 18:21] LABS: Glucose,Whole Blood 96 mg/dL (75-99)
[2021-08-10] MEDS: VALPROATE SODIUM 1,500 MG in SODIUM CHLORIDE 0.9% 50 ML IVPB SCH (19:40)
--- NOTE | 2021-08-10 21:59 | P.HPIM ---
History of Present Illness H&P Date: 08/10/21 Chief Complaint: Seizures Patient is a 21-year-old male with a known history of epilepsy on antiepileptic medications, depression and previous history of smoking presents to ER due to multiple breakthrough seizures. On the day to the hospital EMS patient was given 15 mg of Versed to control the seizures. While in the ER patient was using accessory muscles and unable to protect airway. Patient was intubated in the ER and sedated currently.. Otherwise patient's mother is at bedside who is able to provide history. Currently on Depakote, Vimpat and midazolam at home. He has been afebrile and no recent illnesses. No chest pain or shortness of breath headache dizziness or lightheadednessno nausea vomiting or abdominal pain or diarrhea recently. Chest x-ray showed new small right lower lobe infiltrate. CT head showed no acute intracranial process. EKG showed normal sinus rhythm Laboratory data showed WBC to 2.8 hemoglobin 15.5, platelets 187 pH of 7.33 pCO2 46 and pO2 400 Sodium 132 potassium 4.4 bicarb is 15 lactic acid 12.0 Magnesium 2.4 Depakote level is 70.8 Review of Systems Review of systems could not be obtained from the patient. Past Medical History Past Medical History: Seizure Disorder Additional Past Medical History / Comment(s): History of treated syphilitic infection-2019 History of Any Multi-Drug Resistant Organisms: None Reported Date of last positivie culture/infection: 2018 MDRO Source:: skin on knee Past Surgical History: Adenoidectomy, Tonsillectomy Additional Past Surgical History / Comment(s): undecended testicle Past Anesthesia/Blood Transfusion Reactions: No Reported Reaction Past Psychological History: Depression Smoking Status: Former smoker Past Alcohol Use History: Rare Past Drug Use History: None Reported - Past Family History Mother Family Medical History: Hypertension Additional Family Medical History / Comment(s): on mothers side their is an extensive history of colitis, ulcerative colitis, IBS Chrohns Father Family Medical History: Diabetes Mellitus Medications and Allergies Home Medications Medication Instructions Recorded Confirmed Type Sertraline HCl [Zoloft] 100 mg PO DAILY 12/10/20 08/10/21 History Divalproex [Depakote] 1,500 mg PO BID 06/20/21 08/10/21 History Lacosamide [Vimpat] 300 mg PO BID 08/10/21 08/10/21 History Midazolam [Nayzilam] 1 spray NASAL DIRECTED PRN 08/10/21 08/10/21 History Allergies Allergy/AdvReac Type Severity Reaction Status Date / Time diphenhydramine HCl Allergy Unknown-SEE Verified 08/10/21 13:40 [From Benadryl] COMMENTS sumatriptan [From Imitrex] AdvReac seizure Verified 08/10/21 13:40 sumatriptan succinate AdvReac seizure Verified 08/10/21 13:40 [From Imitrex] Physical Exam Vitals: Vital Signs Temp Pulse Resp BP Pulse Ox 08/10/21 21:00 63 16 123/72 08/10/21 20:00 97.8 F 71 16 123/72 08/10/21 19:00 72 16 123/72 08/10/21 18:50 73 16 123/72 08/10/21 18:40 76 16 123/72 08/10/21 18:34 82 17 132/76 99 08/10/21 18:30 98.6 F 77 16 123/72 08/10/21 18:20 73 11 L 08/10/21 16:45 18 145/113 99 08/10/21 16:30 80 17 132/76 99 08/10/21 16:13 80 17 129/74 99 08/10/21 16:00 80 16 138/84 100 08/10/21 15:35 96 16 120/71 100 08/10/21 15:05 83 16 128/69 81 L 08/10/21 14:00 112 H 141/69 100 08/10/21 13:55 105 H 135/69 100 08/10/21 13:42 104 H 20 116/67 97 08/10/21 11:53 128 H 32 H 147/106 100 08/10/21 11:32 133 H 45 H 132/63 94 L 08/10/21 11:09 95 38 H 150/84 97 Intake and Output 08/10/21 08/10/21 08/10/21 06:59 14:59 22:59 Intake Total 14.424 144.096 Output Total 550 Balance 14.424 -405.904 Intake: Intake, IV Titration 14.424 144.096 Amount Sodium Chloride 0.9% 1, 60 000 ml @ 999 mls/hr IV . Q1H1M [facility] Rx#:[id number] propofoL 1,000 mg In 14.424 84.096 Empty Bag 1 bag @ Titrate IV .Q0M [facility] Rx#: [id number] Output: Urine 550 Other: Voiding Method Indwelling Catheter Weight 68.039 kg 68.039 kg PHYSICAL EXAMINATION: Patient is lying in the bed currently sedated and intubated... HEENT: Normocephalic. Neck is supple. Pupils reactive. Nostrils clear. Oral cavity is moist. Neck reveals no JVD, carotid bruits, or thyromegaly. CHEST EXAMINATION: Trachea is central. Symmetrical expansion. Lung gonzalez clear to auscultation and percussion. CARDIAC: Normal S1, S2 with no gallops. No murmurs ABDOMEN: Soft. Bowel sounds normal. No organomegaly. No abdominal bruits. Extremities: reveal no edema. No clubbing or cyanosis Neurologically sedated and intubated. No gross focal deficits noted Skin: No rash or skin lesions. Psychiatric: Could not be assessed. Musculoskeletal: No joint swelling or deformity. Results CBC & Chem 7: 08/11/21 05:15 08/11/21 05:15 Labs: Abnormal Lab Results - Last 24 Hours (Table) 08/10/21 08/10/21 08/10/21 Range/Units 11:25 11:25 11:27 WBC 22.8 H (3.8-10.6) k/uL Neutrophils # (Manual) 8.20 H (1.3-7.7) k/uL Lymphocytes # (Manual) 12.31 H (1.0-4.8) k/uL Monocytes # (Manual) 1.14 H (0-1.0) k/uL Eosinophils # (Manual) 0.91 H (0-0.7) k/uL Metamyelocytes # (Man) 0.23 H (0) k/uL Myelocytes # (Manual) 0.68 H (0) k/uL ABG pH (7.35-7.45) ABG pCO2 (35-45) mmHg ABG pO2 (83-108) mmHg ABG Total CO2 (19-24) mmol/L ABG O2 Saturation (94-97) % Sodium 135 L (137-145) mmol/L Carbon Dioxide 15 L (22-30) mmol/L Glucose 165 H (74-99) mg/dL Plasma Lactic Acid Mo 12.0 H* (0.7-2.0) mmol/L Magnesium 2.4 H (1.6-2.3) mg/dL 08/10/21 Range/Units 12:35 WBC (3.8-10.6) k/uL Neutrophils # (Manual) (1.3-7.7) k/uL Lymphocytes # (Manual) (1.0-4.8) k/uL Monocytes # (Manual) (0-1.0) k/uL Eosinophils # (Manual) (0-0.7) k/uL Metamyelocytes # (Man) (0) k/uL Myelocytes # (Manual) (0) k/uL ABG pH 7.33 L (7.35-7.45) ABG pCO2 46 H (35-45) mmHg ABG pO2 >400 H (83-108) mmHg ABG Total CO2 26 H (19-24) mmol/L ABG O2 Saturation 99.9 H (94-97) % Sodium (137-145) mmol/L Carbon Dioxide (22-30) mmol/L Glucose (74-99) mg/dL Plasma Lactic Acid Mo (0.7-2.0) mmol/L Magnesium (1.6-2.3) mg/dL Thrombosis Risk Factor Assmnt - DVT/VTE Prophylaxis DVT/VTE Prophylaxis: Pharmacologic Prophylaxis ordered - Choose All That Apply Any of the Below Risk Factors Present?: Yes Each Factor Represents 1 point: Medical pt on bed rest Other Risk Factors: No Other congenital or acquired thrombophilia - If yes, enter type in comment: No Thrombosis Risk Factor Assessment Total Risk Factor Score: 1 Thrombosis Risk Factor Assessment Level: Low Risk Assessment and Plan Assessment: Acute breakthrough seizures Acute hypoxic respiratory failure due to serious and unable to protect airway. Epilepsy. Patient is on Vimpat, Depakote as an outpatient. Severe lactic acidosis secondary to seizures. Leukocytosis likely reactive. Possible aspiration can't be excluded. Anion gap metabolic acidosis due to lactic acidosis Depression History of smoking DVT prophylaxis. Plan: Patient is on currently mechanical ventilator. Sedated. Patient was intubated while in the ER for airway protection. Continue with antiepileptic medications. Current IV fluids and Ativan when necessary for seizures. Patient was started on Zosyn empirically due to leukocytosis. Monitor CBC and BMP tomorrow. Continue with GI and DVT prophylaxis. Pulmonary critical care and neurology is on board. Continue to follow closely. discussed with his mother at bedside in detail. Time with Patient: Greater than 30
[2021-08-10] MEDS: CHLORHEXIDINE GLUCONATE 15 ML CUP MUCOUS MEM SCH (22:36)
[2021-08-10 23:24] LABS: Glucose,Whole Blood 83 mg/dL (75-99)
[2021-08-11] MEDS: HEPARIN SODIUM,PORCINE/PF 5,000 UNIT/0.5 ML SYRINGE SQ SCH ×4 (01:46→23:39)
[2021-08-11] MEDS: LACOSAMIDE IVPB SCH ×3 (01:46→21:34)
[2021-08-11] MEDS: SODIUM CHLORIDE 0.9% IVPB SCH ×5 (01:46→21:34)
[2021-08-11] MEDS: VALPROATE SODIUM 1,500 MG in SODIUM CHLORIDE 0.9% 50 ML IVPB SCH (02:17)
[2021-08-11] MEDS: MIDAZOLAM HCL 50 MG in SODIUM CHLORIDE 0.9% 40 ML IV SCH (03:54)
[2021-08-11 05:11] LABS: ABG HCO3 28 mmol/L (21-25); ABG PCO2 37 mmHg (35-45); ABG PH 7.49 (7.35-7.45); ABG PO2 253 mmHg (83-108); ABG TCO2 29 mmol/L (19-24); Allen Test Performed? Yes
[2021-08-11 05:38] LABS: Basophils % (A) 0 %; Eosinophils # (A) 0.1 k/uL (0-0.7); Eosinophils % (A) 1 %; HCT 39.9 % (39.0-53.0); HGB 13.3 gm/dL (13.0-17.5); Lymphocytes # (A) 1.8 k/uL (1.0-4.8); Lymphocytes % (A) 19 %; MCH 29.2 pg (25.0-35.0); MCHC 33.3 g/dL (31.0-37.0); MCV 87.6 fL (80.0-100.0); Mean Platelet Volume 9.6; Monocytes # (A) 0.9 k/uL (0-1.0); Monocytes % (A) 10 %; Neutrophils # (A) 6.5 k/uL (1.3-7.7); Neutrophils % (A) 69 %; Platelet Count 107 k/uL (150-450); RBC 4.56 m/uL (4.30-5.90); RDW 13.3 % (11.5-15.5); WBC 9.4 k/uL (3.8-10.6)
[2021-08-11] MEDS ORDERED: DEXTROSE 50% SYRINGE 50 ML IVP ONE (05:41)
[2021-08-11 05:42] LABS: Glucose,Whole Blood 63 mg/dL (75-99)
[2021-08-11 05:57] LABS: African American GFR (CKD) >90 (>60 ml/min/1.73 sqM); Anion Gap 6 mmol/L; Blood Urea Nitrogen 14 mg/dL (9-20); Calcium 8.6 mg/dL (8.4-10.2); Carbon Dioxide 27 mmol/L (22-30); Chloride 102 mmol/L (98-107); Glucose 82 mg/dL (74-99); Non-African American GFR(CKD) >90 (>60 ml/min/1.73 sqM); Potassium 3.7 mmol/L (3.5-5.1); Sodium 135 mmol/L (137-145)
[2021-08-11 06:02] LABS: Glucose,Whole Blood 82 mg/dL (75-99)
--- NOTE | 2021-08-11 06:27 | XR ---
EXAMINATION TYPE: XR chest 1V portable DATE OF EXAM: 08/11/2021 COMPARISON: 08/10/2021 HISTORY: Tube placement TECHNIQUE: Single frontal view of the chest is obtained. FINDINGS: There is an ET tube approximately 4.6 cm above the jaida. There is an NG tube within the stomach. There has been interval development of a linear area of coarse or bandlike opacity in the left lung b ase likely indicating atelectasis. The remainder the lungs are clear. The heart size is normal and the pulmonary vasculature is not gio ested. There is no pleural effusion or pneumothorax. The osseous structures are intact IMPRESSION: 1. ET tube 4.6 cm above the jaida and NG tube within the stomach. 2. Interval development of mild left lower lobe atelectasis.
[2021-08-11] MEDS ORDERED: POTASSIUM BICARBONATE/CIT AC 20 MEQ TABLET.EFF NG-TUBE SCH (07:00)
--- NOTE | 2021-08-11 08:44 | P.PN ---
Subjective Progress Note Date: 08/11/21 Was on today's evaluation of 08/11/2021, the patient is resting comfortably in bed. He was intubated and placed on a mechanical ventilated because of seizure and postictal state. The patient was unable to protect his airways and for that reason he was intubated. Currently is on accommodation of propofol and Versed drip. Propofol is running at 30 mg/kg per minute and Versed is at 2 mg an hour. We have not witnessed any further episodes of seizures. It seems that the patient has been taken his seizure medication. His valproic acid level was slightly low at 70.8 and the time of admission. Neurology was involved. He was placed back on a combination of Vimpat and valproic acid. The dose of valproic acid was modified by neurology. For now, the patient remains stable on a mechanical ventilator. This morning, he is on assist-control at the rate of 16, tidal volume of 450, FiO2 of 40% with a PEEP of 5. His blood gases are adequate and his pH is currently at 7.49 with a pCO2 of 37 and pO2 of 253. Chest x-ray from today is showing adequate positioning of the ET tube. Breath sounds are equal and symmetrical bilaterally. On his chest x-ray, there is no acute abnormalities. ET tube is in a good location. The patient is producing adequate amount of urine output. He is hemodynamically stable. He has some underlying sinus bradycardia. Neurologist on the case. EEG is to follow after being weaned off the sedation. His platelet count is at 107. Electrolytes all within normal limits. His lactic acid was as high as 12 and it dropped down to 1.5. Objective - Vital Signs Vital signs: Vital Signs Temp 96.7 F L 08/11/21 08:00 Pulse 49 L 08/11/21 08:00 Resp 16 08/11/21 08:00 BP 116/71 08/11/21 08:00 Pulse Ox 100 08/11/21 08:00 Intake & Output 08/10/21 08/11/21 08/11/21 18:59 06:59 18:59 Intake Total 100.000 560.984 137.195 Output Total 1040 75 Balance 100.000 -479.016 62.195 Weight 68.039 kg 69 kg Intake: IV 30 0.9 NACL 30 Intake, IV Titration 100.000 560.984 107.195 Amount Midazolam HCl 50 mg In 39.6 18.467 Sodium Chloride 0.9% 40 ml @ 4 MG/HR 4 mls/hr IV .[id number] [facility] Rx#: [id number] Sodium Chloride 0.9% 1, 390 30 000 ml @ 999 mls/hr IV . Q1H1M [facility] Rx#:[id number] propofoL 1,000 mg In 100.000 131.384 58.728 Empty Bag 1 bag @ Titrate IV .Q0M [facility] Rx#: [id number] Output: Urine 1040 75 Other: Voiding Method Indwelling Catheter - Exam Calm and comfortable sedated with propofol and the patient is currently intubated on a mechanical ventilator. Head exam was generally normal. There was no scleral icterus or corneal arcus. Mucous membranes were moist. Neck was supple and without jugular venous distension, thyromegaly, or carotid bruits. Carotids were easily palpable bilaterally. There was no adenopathy. The patient has an orotracheal and orogastric tube are both of them are in place. Lungs reveal a pectus excavatum chest deformity. Scattered rhonchi heard bilaterally. No significant wheezing. Cardiac exam revealed the PMI to be normally situated and sized. The rhythm was regular and no extrasystoles were noted during several minutes of auscultation. The first and second heart sounds were normal and physiologic splitting of the second heart sound was noted. There were no murmurs, rubs, clicks, or gallops. Abdominal exam revealed normal bowel sounds. The abdomen was soft, non-tender, and without masses, organomegaly, or appreciable enlargement of the abdominal aorta. Examination of the extremities revealed easily palpable radial, femoral and pedal pulses. There was no cyanosis, clubbing or edema. Examination of the skin revealed no evidence of significant rashes, suspicious appearing nevi or other concerning lesions. Neurologically the patient has been sedated with propofol for now. The patient underwent extensive state. Withdraws to painful stimulation. Motor and sensory function cannot be obtained. - Labs CBC & Chem 7: 08/11/21 05:15 08/11/21 05:15 Labs: Abnormal Lab Results - Last 24 Hours (Table) 08/10/21 08/10/21 08/10/21 Range/Units 11:25 11:25 11:27 WBC 22.8 H (3.8-10.6) k/uL Plt Count (150-450) k/uL Neutrophils # (Manual) 8.20 H (1.3-7.7) k/uL Lymphocytes # (Manual) 12.31 H (1.0-4.8) k/uL Monocytes # (Manual) 1.14 H (0-1.0) k/uL Eosinophils # (Manual) 0.91 H (0-0.7) k/uL Metamyelocytes # (Man) 0.23 H (0) k/uL Myelocytes # (Manual) 0.68 H (0) k/uL ABG pH (7.35-7.45) ABG pCO2 (35-45) mmHg ABG pO2 (83-108) mmHg ABG HCO3 (21-25) mmol/L ABG Total CO2 (19-24) mmol/L ABG O2 Saturation (94-97) % Sodium 135 L (137-145) mmol/L Carbon Dioxide 15 L (22-30) mmol/L Glucose 165 H (74-99) mg/dL POC Glucose (mg/dL) (75-99) mg/dL Plasma Lactic Acid Mo 12.0 H* (0.7-2.0) mmol/L Magnesium 2.4 H (1.6-2.3) mg/dL Procalcitonin (0.02-0.09) ng/mL 08/10/21 08/10/21 08/10/21 Range/Units 12:35 17:11 23:56 WBC (3.8-10.6) k/uL Plt Count (150-450) k/uL Neutrophils # (Manual) (1.3-7.7) k/uL Lymphocytes # (Manual) (1.0-4.8) k/uL Monocytes # (Manual) (0-1.0) k/uL Eosinophils # (Manual) (0-0.7) k/uL Metamyelocytes # (Man) (0) k/uL Myelocytes # (Manual) (0) k/uL ABG pH 7.33 L (7.35-7.45) ABG pCO2 46 H (35-45) mmHg ABG pO2 >400 H (83-108) mmHg ABG HCO3 (21-25) mmol/L ABG Total CO2 26 H (19-24) mmol/L ABG O2 Saturation 99.9 H (94-97) % Sodium (137-145) mmol/L Carbon Dioxide (22-30) mmol/L Glucose (74-99) mg/dL POC Glucose (mg/dL) (75-99) mg/dL Plasma Lactic Acid Mo (0.7-2.0) mmol/L Magnesium 2.4 H (1.6-2.3) mg/dL Procalcitonin 0.17 H (0.02-0.09) ng/mL 08/11/21 08/11/21 08/11/21 Range/Units 05:06 05:15 05:15 WBC (3.8-10.6) k/uL Plt Count 107 L (150-450) k/uL Neutrophils # (Manual) (1.3-7.7) k/uL Lymphocytes # (Manual) (1.0-4.8) k/uL Monocytes # (Manual) (0-1.0) k/uL Eosinophils # (Manual) (0-0.7) k/uL Metamyelocytes # (Man) (0) k/uL Myelocytes # (Manual) (0) k/uL ABG pH 7.49 H (7.35-7.45) ABG pCO2 (35-45) mmHg ABG pO2 253 H (83-108) mmHg ABG HCO3 28 H (21-25) mmol/L ABG Total CO2 29 H (19-24) mmol/L ABG O2 Saturation 100.0 H (94-97) % Sodium 135 L (137-145) mmol/L Carbon Dioxide (22-30) mmol/L Glucose (74-99) mg/dL POC Glucose (mg/dL) (75-99) mg/dL Plasma Lactic Acid Mo (0.7-2.0) mmol/L Magnesium (1.6-2.3) mg/dL Procalcitonin (0.02-0.09) ng/mL 08/11/21 Range/Units 05:39 WBC (3.8-10.6) k/uL Plt Count (150-450) k/uL Neutrophils # (Manual) (1.3-7.7) k/uL Lymphocytes # (Manual) (1.0-4.8) k/uL Monocytes # (Manual) (0-1.0) k/uL Eosinophils # (Manual) (0-0.7) k/uL Metamyelocytes # (Man) (0) k/uL Myelocytes # (Manual) (0) k/uL ABG pH (7.35-7.45) ABG pCO2 (35-45) mmHg ABG pO2 (83-108) mmHg ABG HCO3 (21-25) mmol/L ABG Total CO2 (19-24) mmol/L ABG O2 Saturation (94-97) % Sodium (137-145) mmol/L Carbon Dioxide (22-30) mmol/L Glucose (74-99) mg/dL POC Glucose (mg/dL) 63 L (75-99) mg/dL Plasma Lactic Acid Mo (0.7-2.0) mmol/L Magnesium (1.6-2.3) mg/dL Procalcitonin (0.02-0.09) ng/mL Assessment and Plan Plan: 1 acute hypoxic respiratory failure, a combination of seizures occurring on outpatient basis and the patient was able to protect his airways and there was a concern of breath or secretions and respiratory compromise and for that reason the patient was intubated and placed on a mechanical ventilator. Chest x-ray reveals no evidence of pneumonia. ET tube is in a good location. Blood gases was reviewed 2 history of epilepsy mentation and accommodation of Vimpat and Depakote on outpatient basis. Levels need to be checked.the patient has been seizure-free since yesterday. 3 breakthrough seizures and the patient was given a total of 15 mg of Versed on route, currently on a combination of Versed and propofol. Reintroduce Depakote at modified doses and he is also on Vimpat. There are is on the case. EEG is to follow 4 pectus excavatum chest deformity 5 acute lactic acidosis secondary to seizures, lactic acid level is improved 6 anion gap metabolic acidosis secondary to above 7 acute leukocytosis and normalized, improved and normalized 8 previous history of status epilepticus requiring intubation mechanical ventilation back in March 2021 9 history of marijuana use PLAN Sedation holiday Possible extubation today based on his arousal and alertness level and his weaning parameters Continue antiepileptic medication per neurology Check urine drug screen Continue IV fluids normal saline today to 100 mL an hour Hernandez catheter in place Monitor white cell count Lovenox for DVT prophylaxis IV Protonix EEG We'll continue to follow. Possible extubation today. CC evaluation, > 30 min Time with Patient: Greater than 30
[2021-08-11] MEDS: CHLORHEXIDINE GLUCONATE 15 ML CUP MUCOUS MEM SCH ×2 (09:07→21:27)
[2021-08-11] MEDS: PANTOPRAZOLE 40 MG/10 ML VIAL IV SCH (09:09)
[2021-08-11] MEDS: VALPROATE SODIUM IVPB SCH ×2 (09:20→21:34)
--- NOTE | 2021-08-11 10:30 | P.CNNES ---
History of Present Illness Consult date: 08/11/21 Requesting physician: Dragan Menendez Reason for Consult: recurrent seizure History of Present Illness: This is a 21-year-old gentleman medical history of epilepsy since 2012, status epilepticus, pes cavus, marijuana use and nicotine use present emergency department on 08/10/2021 because of multiple breakthrough seizures. Some of the history is obtained from medical records as well as the patient's mother via phone. Patient is known to me and seen the patient on 02/27/2021 for status epilepticus in our facility. Patient continues to have recurrent break-through seizure and yesterday. It seems that the patient had recurrent seizures in EMS and was given Versed 15mg in total by EMS. As result of his seizure he was using accessory muscles for breathing and had upper airway secretions and completely unresponsive and unable to cough the secretion. As result the patient was intubated and place on ventilator in our ED for airway protection. In the ED the patient was given a total of 5 mg of Ativan. Also the patient was started on IV propofol and IV Versed since was felt the patient was in status epilepticus. Per the patient's mother the patient has been followed up initially with Dr. Ackerman and was on very high dose of Vimpat 400mg 1 tab bid and was on Depkaote 750mg 1 tab bid but patient continued to have recurrent seizures. Therefore patient started following-up with an epileptilogist (Dr. Heidi Coyle) over at [facility] and had one virtual visit. His medication was modified about 3 weeks ago as result and his Depakote was increased to 1500mg 1 tab bid and his Vimpat was decreased to 300mg 1 tab bid. Per mother his seizures were improving after modification of his medication but he was having sleep depriviation. Patient is compliant with medication. Patient had 2.5 hour EEG on 02/07/2021 in our facility and it is reported as abnormal prolonged to have video EEG. No clinical or else graphic seizures were recorded. Interictal epileptiform activity were seen over the left temporal greater than the right mid temporal region. This refers to the sharp and slow wave seen. These discharges were epileptiform in nature. In addition runs of more frontal predominant theta range slowing were seen with intermixed sharp waves. And the conclusion was these findings suggest the presence of independent epileptiform foci involving the left mid temporal greater than the r ight mid temporal region. These findings also suggest a potential presence of midline epileptiform focus. These findings also indicate mild diffuse cerebral dysfunction with greater for subtle involvement of left greater than the right right temporal region. Some other workup in the hospital consisted of: Initial vital signs his blood pressure 150/84, heart rate of the night 5, respiratory of 38, pulse ox of 97% on 15 L of nonrebreather. Initial temperature is 98.6 the patient has been afebrile during this admission. Initial white blood cell is 22.8 thousand and the repeated is 9.4 thousand which is normal. Initial chemistry panel is sodium is 135, creatinine is 0.89, serum glucose is 165, calcium is 8.7, magnesium 2.4, AST of 40, ALT of 24 and the plasma lactic acid vein is 12.0 and a repeat is 1.5. Initial valproic acid level is 70.8 which is considered therapeutic normal is between 50-120. The repeated is 48.1 which is considered subtherapeutic Coronavirus patient was not detected. CT of the head is reported as no acute intracranial process seen at this time. I personally reviewed the CT of the head there is no acute or subacute ischemia. I gave the patient a loading dose of Vimpat of 100 and I restarted his all medication yesterday. Patient was on IV propofol 40mcg/kg/min and IV versed 4mg/hr at 7am. No further seizures per nurse. Review of Systems Review of system is limited because of the patient condition but the prone positive and negative as per HPI. Past Medical History Past Medical History: Seizure Disorder Additional Past Medical History / Comment(s): History of treated syphilitic infection-2019 History of Any Multi-Drug Resistant Organisms: None Reported Date of last positivie culture/infection: 2018 MDRO Source:: skin on knee Past Surgical History: Adenoidectomy, Tonsillectomy Additional Past Surgical History / Comment(s): undecended testicle Past Anesthesia/Blood Transfusion Reactions: No Reported Reaction Past Psychological History: Depression Smoking Status: Former smoker Past Alcohol Use History: Rare Past Drug Use History: None Reported - Past Family History Mother Family Medical History: Hypertension Additional Family Medical History / Comment(s): on mothers side their is an extensive history of colitis, ulcerative colitis, IBS Chrohns Father Family Medical History: Diabetes Mellitus Medications and Allergies Home Medications Medication Instructions Recorded Confirmed Type Sertraline HCl [Zoloft] 100 mg PO DAILY 12/10/20 08/10/21 History Divalproex [Depakote] 1,500 mg PO BID 06/20/21 08/10/21 History Lacosamide [Vimpat] 300 mg PO BID 08/10/21 08/10/21 History Midazolam [Nayzilam] 1 spray NASAL DIRECTED PRN 08/10/21 08/10/21 History Allergies Allergy/AdvReac Type Severity Reaction Status Date / Time diphenhydramine HCl Allergy Unknown-SEE Verified 08/10/21 13:40 [From Benadryl] COMMENTS sumatriptan [From Imitrex] AdvReac seizure Verified 08/10/21 13:40 sumatriptan succinate AdvReac seizure Verified 08/10/21 13:40 [From Imitrex] Physical Examination - Vital Signs Vital Signs: Vital Signs Temp Pulse Resp BP Pulse Ox 08/11/21 08:00 96.7 F L 49 L 16 116/71 100 08/11/21 07:00 53 L 16 116/71 99 08/11/21 06:00 50 L 16 116/71 100 08/11/21 05:00 45 L 16 107/59 99 08/11/21 04:00 97.4 F L 51 L 16 99/58 100 08/11/21 03:00 60 16 133/81 100 08/11/21 02:00 57 L 17 95/55 98 08/11/21 01:00 67 16 99/63 98 08/11/21 00:00 98.3 F 65 16 123/72 98 08/10/21 23:13 16 08/10/21 23:00 60 16 115/68 98 08/10/21 22:00 67 16 123/72 97 08/10/21 21:00 63 16 125/79 97 08/10/21 20:00 97.8 F 71 16 121/75 99 08/10/21 19:00 72 16 123/72 08/10/21 18:50 73 16 123/72 08/10/21 18:40 76 16 123/72 08/10/21 18:34 82 17 132/76 99 08/10/21 18:30 98.6 F 77 16 123/72 08/10/21 18:20 73 11 L 08/10/21 16:45 18 145/113 99 08/10/21 16:30 80 17 132/76 99 08/10/21 16:13 80 17 129/74 99 08/10/21 16:00 80 16 138/84 100 08/10/21 15:35 96 16 120/71 100 08/10/21 15:05 83 16 128/69 81 L 08/10/21 14:00 112 H 141/69 100 08/10/21 13:55 105 H 135/69 100 08/10/21 13:42 104 H 20 116/67 97 08/10/21 11:53 128 H 32 H 147/106 100 08/10/21 11:32 133 H 45 H 132/63 94 L 08/10/21 11:09 95 38 H 150/84 97 Intake and Output 08/10/21 08/11/21 08/11/21 22:59 06:59 14:59 Intake Total 235.576 410.984 137.195 Output Total 670 370 75 Balance -434.424 40.984 62.195 Intake: IV 30 0.9 NACL 30 Intake, IV Titration 235.576 410.984 107.195 Amount Midazolam HCl 50 mg In 39.6 18.467 Sodium Chloride 0.9% 40 ml @ 4 MG/HR 4 mls/hr IV .[id number] [facility] Rx#: [id number] Sodium Chloride 0.9% 1, 150 240 30 000 ml @ 999 mls/hr IV . Q1H1M [facility] Rx#:[id number] propofoL 1,000 mg In 85.576 131.384 58.728 Empty Bag 1 bag @ Titrate IV .Q0M [facility] Rx#: [id number] Output: Urine 670 370 75 Other: Voiding Method Indwelling Catheter Indwelling Catheter Weight 68.039 kg 69 kg GENERAL: The patient is lying in bed and does not seem in acute distress. CHEST: The heart rate is regular rate rhythm. No murmurs to auscultation. No carotid bruit bilaterally. Has pes cavus. LUNG: Clear to auscultation bilaterally no wheezing noted throughout. Not labored breathing. Is intubated and on ventilator. ABDOMEN/GI: Bowel sounds present in all 4 quadrants. No tenderness to palpation throughout. NEUROLOGICAL: Limited since: Patient was on IV propofol 40mcg/kg/min and IV versed 4mg/hr at 7am and Versed was stopped 1 hour ago ad IV Propofol was running at 10mcg/kg/min. Higher mental function: The patient is awake and following commands appropriately. He was able to nods his head to name. He showed thumbs up and lifting extremities to command. Cranial nerves: The pupils are round, equal and reactive to light. Extraocular movement is intact in all directions and no nystagmus. No facial weakness. Motor: The strength is moving all extremities above gravity symmetrically.Normal tone and bulk. Cerebellum: Could not assess. Sensation: Sensation is normal to touch throughout. Reflexes (right/left): 2+ throughout. Plantars are mute bilaterally. Results - Laboratory Findings CBC and BMP: 08/11/21 05:15 08/11/21 05:15 Abnormal Lab Findings: Abnormal Labs 08/10/21 08/10/21 08/10/21 11:25 11:25 11:27 WBC 22.8 H Plt Count Neutrophils # (Manual) 8.20 H Lymphocytes # (Manual) 12.31 H Monocytes # (Manual) 1.14 H Eosinophils # (Manual) 0.91 H Metamyelocytes # (Man) 0.23 H Myelocytes # (Manual) 0.68 H ABG pH ABG pCO2 ABG pO2 ABG HCO3 ABG Total CO2 ABG O2 Saturation Sodium 135 L Carbon Dioxide 15 L Glucose 165 H POC Glucose (mg/dL) Plasma Lactic Acid Mo 12.0 H* Magnesium 2.4 H Procalcitonin 08/10/21 08/10/21 08/10/21 12:35 17:11 23:56 WBC Plt Count Neutrophils # (Manual) Lymphocytes # (Manual) Monocytes # (Manual) Eosinophils # (Manual) Metamyelocytes # (Man) Myelocytes # (Manual) ABG pH 7.33 L ABG pCO2 46 H ABG pO2 >400 H ABG HCO3 ABG Total CO2 26 H ABG O2 Saturation 99.9 H Sodium Carbon Dioxide Glucose POC Glucose (mg/dL) Plasma Lactic Acid Mo Magnesium 2.4 H Procalcitonin 0.17 H 08/11/21 08/11/21 08/11/21 05:06 05:15 05:15 WBC Plt Count 107 L Neutrophils # (Manual) Lymphocytes # (Manual) Monocytes # (Manual) Eosinophils # (Manual) Metamyelocytes # (Man) Myelocytes # (Manual) ABG pH 7.49 H ABG pCO2 ABG pO2 253 H ABG HCO3 28 H ABG Total CO2 29 H ABG O2 Saturation 100.0 H Sodium 135 L Carbon Dioxide Glucose POC Glucose (mg/dL) Plasma Lactic Acid Mo Magnesium Procalcitonin 08/11/21 05:39 WBC Plt Count Neutrophils # (Manual) Lymphocytes # (Manual) Monocytes # (Manual) Eosinophils # (Manual) Metamyelocytes # (Man) Myelocytes # (Manual) ABG pH ABG pCO2 ABG pO2 ABG HCO3 ABG Total CO2 ABG O2 Saturation Sodium Carbon Dioxide Glucose POC Glucose (mg/dL) 63 L Plasma Lactic Acid Mo Magnesium Procalcitonin Assessment and Plan Assessment: Status epilepticus (likely provoked due to sleep depriviation and his medication and being modified by his neurologist to control his seizures)--currently on IV Propofol and Versed---clinically resolved. History of epilepsy since 2012 with recurrent seizure and history of status epilepticus in the past. Acute hypoxic respiratory further due to his seizure. As a result the patient was intubated on a ventilator for a reproduction Leukocytosis and lactic acidosis is reactive due to his seizures---both resolved Pes cavus History of marijuana use History of nicotine use Plan: I increase his home dose of Depakote from 1500 mg every 12 hours to 1750mg ever 12 hours. Continue Vimpat 300mg twice a day. Will attempt to wean Versed and IV propofol and will access his condition. 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 Pending Vimpat level. Placed on Seizure precaution and pad. Q1 hour neurochecks. Will defer the rest of medical management to the primary and ICU team. Upon discharge the patient needs to follow-up with his an epileptilogist (Dr. Jonel Coyle) over at [facility] and per mother has an appointment in one week. According to [place] DMV, because of his seizures the patient cannot drive for 6 month until seizure-free. He is to avoid heights, avoids swimming unassisted and to avoid using heavy machinery. The plan is discussed with the patient's mother (via phone) and his nurse. Thank you for the consultation. Fer Berumen MD Neuro-Hospitalist Time with Patient: Greater than 30
[2021-08-11 10:35] LABS: Amphetamine Screen,Urine Not Detected (NotDetected); Barbiturate Screen,Urine Not Detected (NotDetected); Benzodiazepines Screen,Urine Detected (NotDetected); Cocaine Screen,Urine Not Detected (NotDetected); Methadone Screen, Urine Not Detected (NotDetected); Opiate Screen,Urine Not Detected (NotDetected); Oxycodone Screen, Urine Not Detected (NotDetected); Phencyclidine Screen,Urine Not Detected (NotDetected); Tricyclic Antidepressant,Urine Not Detected (NotDetected); Urn Cannabinoid Scrn Detected (NotDetected)
[2021-08-11 12:26] LABS: Glucose,Whole Blood 80 mg/dL (75-99)
[2021-08-11 18:05] LABS: Glucose,Whole Blood 85 mg/dL (75-99)
--- NOTE | 2021-08-11 22:05 | P.PN ---
Subjective Progress Note Date: 08/11/21 Principal diagnosis: Status epilepticus. Patient is a 21-year-old male with a known history of epilepsy on antiepileptic medications, depression and previous history of smoking presents to ER due to multiple breakthrough seizures. On the day to the hospital EMS patient was give n 15 mg of Versed to control the seizures. While in the ER patient was using accessory muscles and unable to protect airway. Patient was intubated in the ER and sedated currently.. Otherwise patient's mother is at bedside who is able to provide history. Currently on Depakote, Vimpat and midazolam at home. He has been afebrile and no recent illnesses. No chest pain or shortness of breath headache dizziness or lightheadednessno nausea vomiting or abdominal pain or diarrhea recently. Chest x-ray showed new small right lower lobe infiltrate. CT head showed no acute intracranial process. EKG showed normal sinus rhythm Laboratory data showed WBC to 2.8 hemoglobin 15.5, platelets 187 pH of 7.33 pCO2 46 and pO2 400 Sodium 132 potassium 4.4 bicarb is 15 lactic acid 12.0 Magnesium 2.4 Depakote level is 70.8 08/11/2021 Patient is currently resting in bed comfortably. Patient was intubated due to acute hypoxic respiratory failure and to protect airways. Patient was extubated today. Awake alert and oriented. Patient has been afebrile. No nausea vomiting abdominal pain or diarrhea. No complaints of chest pain or shortness of breath. Currently being continued Vimpat IV and valproic acid as per neurology recommendations. EEG to be done today. Laboratory data showed leukocytosis resolved with WBC 9.4 hemoglobin 13.3 and platelets 107 Sodium 135 potassium 3.7 chloride 102 bicarbonate 27 BUN 49 creatinine 0.85 and calcium 8.6 UDS is positive for benzodiazepines and marijuana Pulmonary and neurology on board. Current medications reviewed. Objective - Vital Signs Vital signs: Vital Signs Temp 98.9 F 08/11/21 12:00 Pulse 64 08/11/21 13:00 Resp 18 08/11/21 13:00 BP 116/71 08/11/21 13:00 Pulse Ox 96 08/11/21 13:00 Intake & Output 08/10/21 08/11/21 08/11/21 18:59 06:59 18:59 Intake Total 100.000 560.984 297.519 Output Total 1040 520 Balance 100.000 -479.016 -222.481 Weight 68.039 kg 69 kg Intake: IV 180 0.9 NACL 180 Intake, IV Titration 100.000 560.984 117.519 Amount Midazolam HCl 50 mg In 39.6 19.200 Sodium Chloride 0.9% 40 ml @ 4 MG/HR 4 mls/hr IV .[id number] [facility] Rx#: [id number] Sodium Chloride 0.9% 1, 390 30 000 ml @ 999 mls/hr IV . Q1H1M [facility] Rx#:[id number] propofoL 1,000 mg In 100.000 131.384 68.319 Empty Bag 1 bag @ Titrate IV .Q0M [facility] Rx#: [id number] Output: Urine 1040 520 Other: Voiding Method Indwelling Catheter Indwelling Catheter - Exam PHYSICAL EXAMINATION: Patient is lying in the bed comfortably, no acute distress, awake alert and oriented.. HEENT: Normocephalic. Neck is supple. Pupils reactive. Nostrils clear. Oral cavity is moist. Neck reveals no JVD, carotid bruits, or thyromegaly. CHEST EXAMINATION: Trachea is central. Symmetrical expansion. Lung gonzalez clear to auscultation and percussion. CARDIAC: Normal S1, S2 with no gallops. No murmurs ABDOMEN: Soft. Bowel sounds normal. No organomegaly. No abdominal bruits. Extremities: reveal no edema. No clubbing or cyanosis Neurologically awake, alert, oriented x3 with well-coordinated movements. No focal deficits noted Skin: No rash or skin lesions. Psychiatric: Cooperative. Nonsuicidal Musculoskeletal: No joint swelling or deformity. Normal range of motion. - Labs CBC & Chem 7: 08/11/21 05:15 08/11/21 05:15 Labs: Abnormal Lab Results - Last 24 Hours (Table) 08/10/21 08/10/21 08/11/21 Range/Units 17:11 23:56 05:06 Plt Count (150-450) k/uL ABG pH 7.49 H (7.35-7.45) ABG pO2 253 H (83-108) mmHg ABG HCO3 28 H (21-25) mmol/L ABG Total CO2 29 H (19-24) mmol/L ABG O2 Saturation 100.0 H (94-97) % Sodium (137-145) mmol/L POC Glucose (mg/dL) (75-99) mg/dL Magnesium 2.4 H (1.6-2.3) mg/dL Procalcitonin 0.17 H (0.02-0.09) ng/mL U Benzodiazepines Scrn (NotDetected) U Marijuana (THC) Screen (NotDetected) 08/11/21 08/11/21 08/11/21 Range/Units 05:15 05:15 05:39 Plt Count 107 L (150-450) k/uL ABG pH (7.35-7.45) ABG pO2 (83-108) mmHg ABG HCO3 (21-25) mmol/L ABG Total CO2 (19-24) mmol/L ABG O2 Saturation (94-97) % Sodium 135 L (137-145) mmol/L POC Glucose (mg/dL) 63 L (75-99) mg/dL Magnesium (1.6-2.3) mg/dL Procalcitonin (0.02-0.09) ng/mL U Benzodiazepines Scrn (NotDetected) U Marijuana (THC) Screen (NotDetected) 08/11/21 Range/Units 08:45 Plt Count (150-450) k/uL ABG pH (7.35-7.45) ABG pO2 (83-108) mmHg ABG HCO3 (21-25) mmol/L ABG Total CO2 (19-24) mmol/L ABG O2 Saturation (94-97) % Sodium (137-145) mmol/L POC Glucose (mg/dL) (75-99) mg/dL Magnesium (1.6-2.3) mg/dL Procalcitonin (0.02-0.09) ng/mL U Benzodiazepines Scrn Detected H (NotDetected) U Marijuana (THC) Screen Detected H (NotDetected) Assessment and Plan Assessment: Acute breakthrough seizures/ Status epilepticus. Acute hypoxic respiratory failure due to serious and unable to protect airway. Epilepsy. Patient is on Vimpat, Depakote as an outpatient. Severe lactic acidosis secondary to seizures. resolved Leukocytosis likely reactive. Possible aspiration can't be excluded. Anion gap metabolic acidosis due to lactic acidosis Depression History of smoking DVT prophylaxis. Plan: Patient is extubated this morning.. Continue with antiepileptic medications. Current IV fluids and Ativan when necessary for seizures. Patient was started on Zosyn empirically due to leukocytosis. Leukocytosis has resolved. Likely reactive. Antibiotics have been discontinued. Monitor CBC and BMP tomorrow. Continue with GI and DVT prophylaxis. Pulmonary critical care and neurology is on board. Continue to follow closely. discussed with his mother at bedside in detail.
[2021-08-11 23:53] VITALS: RESP 16
[2021-08-12 05:09] VITALS: BP 114/63; PULSE 88; TEMP 98.7
[2021-08-12 06:23] LABS: Basophils % (A) 0 %; Eosinophils # (A) 0.1 k/uL (0-0.7); Eosinophils % (A) 1 %; HCT 40.7 % (39.0-53.0); HGB 13.8 gm/dL (13.0-17.5); Lymphocytes # (A) 0.7 k/uL (1.0-4.8); Lymphocytes % (A) 11 %; MCH 29.5 pg (25.0-35.0); MCHC 33.9 g/dL (31.0-37.0); MCV 86.9 fL (80.0-100.0); Mean Platelet Volume 9.4; Monocytes # (A) 0.5 k/uL (0-1.0); Monocytes % (A) 8 %; Neutrophils # (A) 4.9 k/uL (1.3-7.7); Neutrophils % (A) 79 %; Platelet Count 99 k/uL (150-450); RBC 4.68 m/uL (4.30-5.90); RDW 13.3 % (11.5-15.5); WBC 6.2 k/uL (3.8-10.6)
[2021-08-12 06:34] LABS: ALT 21 U/L (4-49); AST 37 U/L (17-59); African American GFR (CKD) >90 (>60 ml/min/1.73 sqM); Albumin 3.2 g/dL (3.5-5.0); Alkaline Phosphatase 32 U/L (38-126); Anion Gap 7 mmol/L; Blood Urea Nitrogen 15 mg/dL (9-20); Calcium 8.5 mg/dL (8.4-10.2); Carbon Dioxide 26 mmol/L (22-30); Chloride 103 mmol/L (98-107); Glucose 84 mg/dL (74-99); Non-African American GFR(CKD) >90 (>60 ml/min/1.73 sqM); Potassium 4.4 mmol/L (3.5-5.1); Sodium 136 mmol/L (137-145); Total Bilirubin 0.5 mg/dL (0.2-1.3); Total Protein 5.8 g/dL (6.3-8.2)
--- NOTE | 2021-08-12 08:40 | P.PN ---
Subjective Principal diagnosis: Status epilepticus. Continue present on a 21-year-old white male known to have status epilepticus over the last weekend. Now on Vimpat and off of propofol Depakote has been instituted. Appreciate neurology input. Clinically he seems to be back to baseline mentation. Objective - Vital Signs Vital signs: Vital Signs Temp 98.7 F 08/12/21 05:00 Pulse 88 08/12/21 05:00 Resp 16 08/12/21 05:00 BP 114/63 08/12/21 05:00 Pulse Ox 97 08/12/21 05:00 Intake & Output 08/11/21 08/12/21 08/12/21 18:59 06:59 18:59 Intake Total 477.519 360 Output Total 720 20 Balance -242.481 340 Intake: IV 360 0.9 NACL 360 Intake, IV Titration 117.519 Amount Midazolam HCl 50 mg In 19.200 Sodium Chloride 0.9% 40 ml @ 4 MG/HR 4 mls/hr IV .[id number] [facility] Rx#: [id number] Sodium Chloride 0.9% 1, 30 000 ml @ 999 mls/hr IV . Q1H1M [facility] Rx#:[id number] propofoL 1,000 mg In 68.319 Empty Bag 1 bag @ Titrate IV .Q0M [facility] Rx#: [id number] Oral 360 Output: Urine 720 20 Other: Voiding Method Indwelling Catheter # Voids 2 - Constitutional General appearance: Present: average body habitus - EENT Eyes: Absent: abnormal pupil - Neck Neck: Present: lymphadenopathy - Respiratory Details: Pectus is noted. Respiratory: bilateral: CTA - Cardiovascular Heart sounds: normal: S1, S2 Abnormal Heart Sounds: Absent: S3 Gallop - Gastrointestinal General gastrointestinal: Present: soft. Absent: tenderness - Integumentary Integumentary: Absent: cellulitis - Psychiatric Psychiatric: Present: A&O x's 3, appropriate affect - Labs CBC & Chem 7: 08/12/21 05:47 08/12/21 05:47 Labs: Abnormal Lab Results - Last 24 Hours (Table) 08/11/21 08/12/21 08/12/21 Range/Units 08:45 05:47 05:47 Plt Count 99 L (150-450) k/uL Lymphocytes # 0.7 L (1.0-4.8) k/uL Sodium 136 L (137-145) mmol/L Alkaline Phosphatase 32 L (38-126) U/L Total Protein 5.8 L (6.3-8.2) g/dL Albumin 3.2 L (3.5-5.0) g/dL U Benzodiazepines Scrn Detected H (NotDetected) U Marijuana (THC) Screen Detected H (NotDetected) Microbiology - Last 24 Hours (Table) 08/10/21 13:16 Blood Culture - Preliminary Blood No Growth after 24 hours Assessment and Plan (1) Status epilepticus Current Visit: Yes Status: Acute Code(s): G40.901 - EPILEPSY, UNSP, NOT INTRACTABLE, WITH STATUS EPILEPTICUS SNOMED Code(s): 665492589 Plan: Status epilepticus. The patient continued be observed. Appreciate neurology input. Hopefully we can discharge in the a.m.
--- NOTE | 2021-08-12 10:01 | P.PN ---
Subjective Progress Note Date: 08/12/21 The patient is seen at bedside and feels he is doing much better and feels back to baseline. Per the patient's nurse no overnight seizure reported and no seizure so far. He stated he is compliant with his home medications. He denies alcohol use. He denies driving. He denies any illicit drug use. Objective - Vital Signs Vital signs: Vital Signs Temp 98.7 F 08/12/21 05:00 Pulse 88 08/12/21 05:00 Resp 16 08/12/21 05:00 BP 114/63 08/12/21 05:00 Pulse Ox 97 08/12/21 05:00 Intake & Output 08/11/21 08/12/21 08/12/21 18:59 06:59 18:59 Intake Total 477.519 360 Output Total 720 20 Balance -242.481 340 Intake: IV 360 0.9 NACL 360 Intake, IV Titration 117.519 Amount Midazolam HCl 50 mg In 19.200 Sodium Chloride 0.9% 40 ml @ 4 MG/HR 4 mls/hr IV .[id number] DE Rx#: [id number] Sodium Chloride 0.9% 1, 30 000 ml @ 999 mls/hr IV . Q1H1M STA Rx#:[id number] propofoL 1,000 mg In 68.319 Empty Bag 1 bag @ Titrate IV .Q0M DE Rx#: [id number] Oral 360 Output: Urine 720 20 Other: Voiding Method Indwelling Catheter # Voids 2 - Exam GENERAL: The patient is lying in bed and is not in acute distress. CHEST: Has pes cavus. NEUROLOGICAL: Higher mental function: The patient is awake, alert, oriented to self, place and time. Patient is following commands. No aphasia and no neglect. Cranial nerves: The pupils are round, equal and reactive to light. Visual gonzalez are full to confrontation throughout. Extraocular movement is intact no nystagmus is noted. Facial sensation is normal to touch throughout. The facial strength is normal throughout. Hearing is normal bilaterally to hand rub. Tongue is midline and moved [id number] without any difficulty. No dysarthria is noted. Shoulder shrug is normal bilaterally. Motor: Gait is deferred. The strength is 5 over 5 throughout. Normal tone and bulk. Cerebellum: Normal finger to nose bilaterally. WORK-UP: Coronavirus patient was not detected. Urine drug screen is positive for benzo and the THC. Initial valproic acid level is 70.8 which is considered therapeutic normal is between 50-120. The repeated is 48.1 which is considered subtherapeutic CT of the head is reported as no acute intracranial process seen at this time. I personally reviewed the CT of the head there is no acute or subacute ischemia. - Labs CBC & Chem 7: 08/12/21 05:47 08/12/21 05:47 Labs: Abnormal Lab Results - Last 24 Hours (Table) 08/11/21 08/12/21 08/12/21 Range/Units 08:45 05:47 05:47 Plt Count 99 L (150-450) k/uL Lymphocytes # 0.7 L (1.0-4.8) k/uL Sodium 136 L (137-145) mmol/L Alkaline Phosphatase 32 L (38-126) U/L Total Protein 5.8 L (6.3-8.2) g/dL Albumin 3.2 L (3.5-5.0) g/dL U Benzodiazepines Scrn Detected H (NotDetected) U Marijuana (THC) Screen Detected H (NotDetected) Microbiology - Last 24 Hours (Table) 08/10/21 13:16 Blood Culture - Preliminary Blood No Growth after 24 hours Assessment and Plan Assessment: Status epilepticus (likely provoked due to sleep deprivation and his medication is being modified by his neurologist to control his seizures)--currently on IV Propofol and Versed--- resolved. History of epilepsy since 2012 with recurrent seizure and history of status epilepticus in the past. Leukocytosis and lactic acidosis is reactive due to his seizures---both resolved Pes cavus History of marijuana use History of nicotine use Plan: Continue Depakote 1750mg ever 12 hours (was increased during this admission from 1500mg 1 tab bid). Continue Vimpat 300mg twice a day. Pending Vimpat level. On Seizure precaution and pad. Continue neurochecks. Will defer the rest of medical management to the primary team. Upon discharge the patient needs to follow-up with his an epileptilogist (Dr. Jonel Coyle) over at [facility] and per mother has an appointment in one week. According to [place] DMV, because of his seizures the patient cannot drive for 6 month until seizure-free. He is to avoid heights, avoids swimming unassisted and to avoid using heavy machinery and this was notified to patient. The plan is discussed with the patient and his nurse. Patient is clear from neurological perspective. Fer Berumen MD Neuro-Hospitalist Time with Patient: Less than 30
[2021-08-12] MEDS: PANTOPRAZOLE 40 MG/10 ML VIAL IV SCH (10:21)
[2021-08-12] MEDS: CHLORHEXIDINE GLUCONATE 15 ML CUP MUCOUS MEM SCH (10:21)
[2021-08-12] MEDS: HEPARIN SODIUM,PORCINE/PF 5,000 UNIT/0.5 ML SYRINGE SQ SCH (10:23)
[2021-08-12] MEDS: SODIUM CHLORIDE 0.9% IVPB SCH ×2 (10:42→11:46)
[2021-08-12] MEDS: LACOSAMIDE IVPB SCH (10:42)
--- NOTE | 2021-08-12 11:25 | P.PN ---
Subjective Progress Note Date: 08/12/21 Principal diagnosis: Breakthrough seizures Was on today's evaluation of 08/11/2021, the patient is resting comfortably in bed. He was intubated and placed on a mechanical ventilated because of seizure and postictal state. The patient was unable to protect his airways and for that reason he was intubated. Currently is on accommodation of propofol and Versed drip. Propofol is running at 30 mg/kg per minute and Versed is at 2 mg an hour. We have not witnessed any further episodes of seizures. It seems that the patient has been taken his seizure medication. His valproic acid level was slightly low at 70.8 and the time of admission. Neurology was involved. He was placed back on a combination of Vimpat and valproic acid. The dose of valproic acid was modified by neurology. For now, the patient remains stable on a mechanical ventilator. This morning, he is on assist-control at the rate of 16, tidal volume of 450, FiO2 of 40% with a PEEP of 5. His blood gases are adequate and his pH is currently at 7.49 with a pCO2 of 37 and pO2 of 253. Chest x-ray from today is showing adequate positioning of the ET tube. Breath sounds are equal and symmetrical bilaterally. On his chest x-ray, there is no acute abnormalities. ET tube is in a good location. The patient is producing adequate amount of urine output. He is hemodynamically stable. He has some underlying sinus bradycardia. Neurologist on the case. EEG is to follow after being weaned off the sedation. His platelet count is at 107. Electrolytes all within normal limits. His lactic acid was as high as 12 and it dropped down to 1.5. On 08/12/2021 patient seen in follow-up on medical surgical floor, he was transferred out of intensive care unit yesterday, his had no acute events overnight, no breakthrough seizures, he is awake and alert, oriented 3, he is breathing comfortably, room air pulse ox is 97%, no fever or chills, vital signs have been stable, no maintenance IVs. Patient continues on Valdproate and Lacosamide per neurology, he has when necessary Ativan for breakthrough seizu res, he is on GI and DVT prophylaxis. His labs have been reviewed, white blood cell count of 6.2, hemoglobin is 13.8, platelet count is 99, his vital choice and renal profile were unremarkable, his last chest x-ray from yesterday prior to extubation showed left lung base atelectasis, the remainder of the lungs were clear. Objective - Vital Signs Vital signs: Vital Signs Temp 98.7 F 08/12/21 05:00 Pulse 88 08/12/21 05:00 Resp 16 08/12/21 05:00 BP 114/63 08/12/21 05:00 Pulse Ox 97 08/12/21 05:00 Intake & Output 08/11/21 08/12/21 08/12/21 18:59 06:59 18:59 Intake Total 477.519 360 Output Total 720 20 Balance -242.481 340 Intake: IV 360 0.9 NACL 360 Intake, IV Titration 117.519 Amount Midazolam HCl 50 mg In 19.200 Sodium Chloride 0.9% 40 ml @ 4 MG/HR 4 mls/hr IV .[id number] DE Rx#: [id number] Sodium Chloride 0.9% 1, 30 000 ml @ 999 mls/hr IV . Q1H1M STA Rx#:[id number] propofoL 1,000 mg In 68.319 Empty Bag 1 bag @ Titrate IV .Q0M DE Rx#: [id number] Oral 360 Output: Urine 720 20 Other: Voiding Method Indwelling Catheter # Voids 2 - Exam GENERAL EXAM: Alert, very pleasant, 21-year-old white male, on room, the pulse ox of 98% comfortable in no apparent distress. HEAD: Normocephalic/atraumatic. EYES: Normal reaction of pupils, equal size. Conjunctiva pink, sclera white. NOSE: Clear with pink turbinates. THROAT: No erythema or exudates. NECK: No masses, no JVD, no thyroid enlargement, no adenopathy. CHEST: No chest wall deformity. Symmetrical expansion. LUNGS: Equal air entry with no crackles, wheeze, rhonchi or dullness. CVS: Regular rate and rhythm, normal S1 and S2, no gallops, no murmurs, no rubs ABDOMEN: Soft, nontender. No hepatosplenomegaly, normal bowel sounds, no guard ing or rigidity. EXTREMITIES: No clubbing, no edema, no cyanosis, 2+ pulses and upper and lower extremities. MUSCULOSKELETAL: Muscle strength and tone normal. SPINE: No scoliosis or deformity SKIN: No rashes CENTRAL NERVOUS SYSTEM: Alert and oriented -3. No focal deficits, tone is normal in all 4 extremities. PSYCHIATRIC: Alert and oriented -3. Appropriate affect. Intact judgment and insight. - Labs CBC & Chem 7: 08/12/21 05:47 08/12/21 05:47 Labs: Abnormal Lab Results - Last 24 Hours (Table) 08/12/21 08/12/21 Range/Units 05:47 05:47 Plt Count 99 L (150-450) k/uL Lymphocytes # 0.7 L (1.0-4.8) k/uL Sodium 136 L (137-145) mmol/L Alkaline Phosphatase 32 L (38-126) U/L Total Protein 5.8 L (6.3-8.2) g/dL Albumin 3.2 L (3.5-5.0) g/dL Microbiology - Last 24 Hours (Table) 08/10/21 13:16 Blood Culture - Preliminary Blood No Growth after 24 hours Assessment and Plan Plan: Assessment: #1. Acute hypoxic respiratory failure related to breakthrough seizures, and patient was intubated for protection of his airway. he was successfully weaned and extubated on 08/11/2021. Tolerating extubation quite well so far #2. History of epilepsy on a combination of Vimpat and Depacote on an outpatien t basis. Has been seizure-free for the last 48 hours #3. Breakthrough seizures, patient was managed with a combination of Versed and propofol, neurology is following, and patient has been seizure-free in the last 48 hours #4. Pectus excavated #5. Acute lactic acidosis related to seizures, improved #6. Benign gap metabolic acidosis secondary to the above, improved #7. Acute leukocytosis, resolved #8. Previous history of status epilepticus requiring intubation and mechanical ventilation back in March 2021 #9. History of marijuana use Plan: Stable from pulmonary perspective, Maintaining stable oxygenation on room air Breathing comfortably Labs from today are unremarkable His last chest x-ray from yesterday was reviewed showing just left lung base atelectasis, the remainder of the lungs were clear Pulmonary service will sign off and follow on as-needed basis, He could be considered for discharge from pulmonary perspective if cleared by neurology and medicine I performed a history & physical examination of the patient and discussed their management with my nurse practitioner, Anyi Osei. I reviewed the nurse practitioner's note and agree with the documented findings and plan of care. Lung sounds are positive for clear breath sounds throughout the lung gonzalez. T he findings and the impression was discussed with the patient. I attest to the documentation by the nurse practitioner. Time with Patient: Less than 30
--- NOTE | 2021-08-12 11:40 | P.DS ---
Providers Date of admission: 08/10/21 15:39 Attending physician: Davian Nam Consults: 08/10/21 15:18 Consult Physician Urgent Consulting Provider: Fer Berumen Consult Reason/Comments: Recurrent seizures Do you want consulting provider notified?: Yes 08/10/21 15:19 Consult Physician Stat Consulting Provider: Callie Arshad Consult Reason/Comments: ICU Do you want consulting provider notified?: Yes Primary care physician: Davian Nam - Discharge Diagnosis(es) (1) Status epilepticus Current Visit: Yes Status: Acute Hospital Course: This is discharge summary on a 21-year-old white male Center admitted for status epilepticus. He was stabilized with appropriate treatment including benzodiazepines. He was followed in ICU and transferred. The patient was stabilized with neurologic help. Critical care was also consulted. The patient did quite well but unfortunately is not completely controlled. He will follow with specialist for epilepsy. Patient Condition at Discharge: Serious Plan - Discharge Summary Discharge Rx Participant: No New Discharge Prescriptions: Continue Sertraline HCl [Zoloft] 100 mg PO DAILY Lacosamide [Vimpat] 300 mg PO BID Midazolam [Nayzilam] 1 spray NASAL DIRECTED PRN PRN Reason: SEIZURE CLUSTERS Changed Divalproex [Depakote] 1,750 mg PO BID #120 tab Discharge Medication List Sertraline HCl [Zoloft] 100 mg PO DAILY 12/10/20 [History] Lacosamide [Vimpat] 300 mg PO BID 08/10/21 [History] Midazolam [Nayzilam] 1 spray NASAL DIRECTED PRN 08/10/21 [History] Divalproex [Depakote] 1,750 mg PO BID #120 tab 08/12/21 [Rx] Patient Instructions/Handouts: Seizure/Epilepsy Discharge Instructions & Follow-Up Discharge Disposition: HOME SELF-CARE
[2021-08-12] MEDS: VALPROATE SODIUM IVPB SCH (11:46)
== END 2021-08-12 14:20 | disposition home or self-care (01) | DRG 100 ==
LOC: EC 11:00 → 2SICU 15:39 → 5NMEDONC 08-11 22:43
PROVIDERS: ADMIT Family Medicine; ATTEND Family Medicine
PROC: 5A1935Z Respiratory Ventilation, Less than 24 Consecutive Hours (ICD-10-PCS; principal; 2021-08-10)
PROC: 0D9670Z Drainage of Stomach with Drainage Device, Via Natural or Artificial Opening (ICD-10-PCS; principal; 2021-08-10)
PROC: 0BH17EZ Insertion of Endotracheal Airway into Trachea, Via Natural or Artificial Opening (ICD-10-PCS; principal; 2021-08-10)
DX: G40.901 Epilepsy, unspecified, not intractable, with status epilepticus (principal); J96.01 Acute respiratory failure with hypoxia; E87.2 Acidosis; J98.11 Atelectasis; G93.89 Other specified disorders of brain; Z20.822 Contact with and (suspected) exposure to COVID-19; F32.A Depression, unspecified; Q67.6 Pectus excavatum; D72.829 Elevated white blood cell count, unspecified; R00.1 Bradycardia, unspecified; F17.290 Nicotine dependence, other tobacco product, uncomplicated; Z71.6 Tobacco abuse counseling; Z79.899 Other long term (current) drug therapy; Z86.19 Personal history of other infectious and parasitic diseases; Z88.8 Allergy status to other drugs, medicaments and biological substances; Z90.89 Acquired absence of other organs; Z98.890 Other specified postprocedural states; Z87.438 Personal history of other diseases of male genital organs; Z72.820 Sleep deprivation; Z82.49 Family history of ischemic heart disease and other diseases of the circulatory system; Z83.79 Family history of other diseases of the digestive system; Z83.3 Family history of diabetes mellitus
CPT/HCPCS: 36415; 36600; 70450; 71045; 80048; 80053; 80164; 80235; 80306; 82805; 83605; 83735; 83880; 84145; 84484; 85025; 87040; 87635; 93005; 94002; 94003; 96361; 96365; 96366; 96374; 96375; 96376; 99285

== ENCOUNTER 2023-03-24 14:07 | Emergency (ER) | payer BC, OTHER ==
[2023-03-24 14:51] LABS: Glucose,Whole Blood 79 mg/dL (70-110)
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
[2023-03-24] MEDS ORDERED: ACETAMINOPHEN TAB 325 MG TAB PO STA (14:57)
[2023-03-24 15:00] LABS: Basophils % (A) 0 %; Eosinophils # (A) 0.1 k/uL (0-0.7); Eosinophils % (A) 1 %; HCT 41.1 % (39.0-53.0); HGB 13.7 gm/dL (13.0-17.5); Lymphocytes # (A) 1.1 k/uL (1.0-4.8); Lymphocytes % (A) 13 %; MCH 28.8 pg (25.0-35.0); MCHC 33.3 g/dL (31.0-37.0); MCV 86.7 fL (80.0-100.0); Mean Platelet Volume 9.3; Monocytes # (A) 0.3 k/uL (0-1.0); Monocytes % (A) 4 %; Neutrophils # (A) 6.5 k/uL (1.3-7.7); Neutrophils % (A) 80 %; Platelet Count 192 k/uL (150-450); RBC 4.74 m/uL (4.30-5.90); RDW 13.3 % (11.5-15.5); WBC 8.2 k/uL (3.8-10.6)
[2023-03-24 15:12] LABS: INR 1.1 (<1.2); Partial Thromboplastin Time 22.4 sec (22.0-30.0); Prothrombin Time 11.2 sec (9.0-12.0)
[2023-03-24 15:19] LABS: ALT 18 U/L (4-49); AST 25 U/L (17-59); African American GFR (CKD) >90 (>60 ml/min/1.73 sqM); Albumin 4.3 g/dL (3.5-5.0); Alkaline Phosphatase 29 U/L (38-126); Anion Gap 10 mmol/L; Blood Urea Nitrogen 14 mg/dL (9-20); Calcium 9.3 mg/dL (8.4-10.2); Carbon Dioxide 25 mmol/L (22-30); Chloride 102 mmol/L (98-107); Glucose 70 mg/dL (74-99); Non-African American GFR(CKD) >90 (>60 ml/min/1.73 sqM); Potassium 4.4 mmol/L (3.5-5.1); Sodium 137 mmol/L (137-145); Total Bilirubin 0.4 mg/dL (0.2-1.3)
--- NOTE | 2023-03-24 15:36 | CT ---
EXAMINATION TYPE: CT brain cspine wo con DATE OF EXAM: 03/24/2023 COMPARISON: 08/10/2021 HISTORY: hx seizure CT DLP: 1100.9 mGycm, Automated exposure control for dose reduction was used. CONTRAST: Patient injected with 0 mL of Isovue 300. CT of the brain is performed utilizing 3 mm thick sections through the posterior fossa and 3 mm thick sections through the remaining calvarium. Study is performed within 24 hours of arrival to the hospital. No abnormal hyperdensity is present to suggest an acute intracranial hemorrhage. No mass lesion is evident. No acute infarcts are evident. Ventricles and sulci are appropriate for the patient age. Paranasal sinuses and mastoid air cells within the [id number] are clear. IMPRESSIONS: 1. No acute intracranial process. Follow-up MRI can be performed as clinically indicated. CT cervical spine. COMPARISON: None CT of the cervical spine is performed in the axial plane at 2 mm thick sections. Reconstructed image s in the coronal, and sagittal plane are reviewed on the computer. No acute fractures are evident. Vertebral body alignment is normal. Prevertebral space is normal. Posterior spinal lamellar line is i ntact. Disc heights are preserved. Vertebral body heights are preserved. No spinal canal stenosis is evident. No neural foraminal stenosis is evident. Lung apices within the field of view are clear. IMPRESSIONS: 1. No acute osseous abnormality cervical spine.
--- NOTE | 2023-03-24 15:39 | CT ---
EXAMINATION TYPE: CT facial bones wo con DATE OF EXAM: 03/24/2023 COMPARISON: None HISTORY: hx seizure CT DLP: 1100.9 mGycm CONTRAST: 0 mL of Isovue 300 The paranasal sinuses are examined in the axial plane at 2 mm thick sections. Reconstructed images i n the coronal plane were obtained. Mandible and maxilla appear intact. Maxillary spine is normal. Zygomatic arches are intact. Nasal bon es appear intact. Orbital floors and medial orbital burton appear intact. The maxillary sinuses are clear. The ethmoid air cells are clear. The sphenoid sinuses are clear. The frontal sinuses are clear. The septum is evaluated. There is septal deviation to the right. The ostiomeatal units are patent. IMPRESSIONS: 1. No acute posttraumatic changes facial bones.
[2023-03-24] MEDS ORDERED: SODIUM CHLORIDE 0.9% 1,000 ML IV ONE (15:42)
[2023-03-24 16:12] VITALS: BP 124/69; PULSE 58; RESP 16; TEMP 98.1
[2023-03-24 16:29] LABS: Amphetamine Screen,Urine Not Detected (NotDetected); Barbiturate Screen,Urine Not Detected (NotDetected); Benzodiazepines Screen,Urine Detected (NotDetected); Cocaine Screen,Urine Not Detected (NotDetected); Methadone Screen, Urine Not Detected (NotDetected); Opiate Screen,Urine Not Detected (NotDetected); Oxycodone Screen, Urine Not Detected (NotDetected); Phencyclidine Screen,Urine Not Detected (NotDetected); Tricyclic Antidepressant,Urine Not Detected (NotDetected); Urn Cannabinoid Scrn Detected (NotDetected)
== END 2023-03-24 16:14 | disposition home or self-care (01) ==
LOC: EC 14:07
DX: G40.909 Epilepsy, unspecified, not intractable, without status epilepticus (principal); F32.A Depression, unspecified; F17.290 Nicotine dependence, other tobacco product, uncomplicated; Z88.8 Allergy status to other drugs, medicaments and biological substances; Z88.2 Allergy status to sulfonamides; Z79.899 Other long term (current) drug therapy
CPT/HCPCS: 36415; 70450; 70486; 72125; 80053; 80235; 80306; 83605; 85025; 85610; 85730; 93005; 99285

== ENCOUNTER → 2023-09-28 | Outpatient (CLI) | payer BC ==
--- NOTE | 2023-09-29 10:38 | MR ---
EXAMINATION TYPE: MR brain wo con DATE OF EXAM: 09/28/2023 6:11 PM CLINICAL INDICATION:Male, 23 years old with history of Z98.890 OTHER SPECIFIED POSTPROCEDURAL STATES; PHH, Seizures. History of s/p laser ablation 05-19-23 COMPARISON: 03/24/2023. TECHNIQUE: Multi planar, multi sequence imaging was performed through the brain including: T1, T2, In version recovery, Diffusion weighted imaging, and gradient echo imaging. No gadolinium was given. FINDINGS: Posttreatment changes with high DWI signal along the medial aspect of the left parietal lob e. Susceptibility weighted imaging demonstrates hemosiderin deposition in this region. Multiple susce ptibility tracts extending down into the surgical bed. The alegre-white junctions, ventricular system, basal cisterns appear unremarkable. Midline structures show no abnormality. Diffusion-weighted imaging shows no evidence of restricted diffusion. The suscep tibility weighted images do not reveal any evidence for micro-hemorrhage. The bone marrow signal is within normal limits. Paranasal sinuses and mastoid air cells: No significant paranasal sinus disease. Visualized orbits: Orbital contents are intact. IMPRESSION: Posttreatment changes, left medial parietal lobe. No evidence of intracranial mass or acute/subacute infarct.
== END | disposition home or self-care (01) ==
LOC: RADMRIMAIN 17:24
PROVIDERS: ATTEND Neurological Surgery
DX: R56.9 Unspecified convulsions (principal); Z98.890 Other specified postprocedural states
CPT/HCPCS: 70551